=== PATIENT | female | born 1945 | race Caucasian/White ===

== ENCOUNTER → 2017-07-11 | Outpatient (CLI) | payer MEDICARE ==
[~2017-07-11] MED LIST: AMLO-110 PO; AMLO-543 PO; ASPI-1441 PO; AUG875 PO; CALC-685 PO; CARV12.578 PO; FLUT15.88; HCTZ25 PO; HYDR-4309 PO; IBU600 PO; IBUP-56 PO; LISI-353 PO; LOR5 PO; MULT-19 PO; MULTIVITAMIN; OMEG-84 PO; OMEP-137 PO; OMEP-218 PO; OMEP40CA79 PO; OXYB10TA16 PO; RAL60 PO; ROS10 PO; SILV20CR2 TP; TOLT4CAP13 PO; TUM500 PO; UBID50CA21 PO; VALA500T63 PO; ZINC50TA43 PO
--- NOTE | 2017-07-11 16:26 | RADIOLOGY IMAGING REPORT ---
FACILITY: [facility] PATIENT NAME: Jimena Silver : 1945 MR: [id number] V: [id number] EXAM DATE: ORDERING PHYSICIAN: ERICK RAGSDALE TECHNOLOGIST: [facility] Patient: Jimena Silver : 1945 Visit/Account:[id number] Date of Sevice: 07/11/2017 CAROTID HISTORY: History of surgery history of stenosis and dizziness COMPARISON: May 07, 2016 FINDINGS: Grayscale, duplex and color Doppler interrogation of the extracranial carotid and vertebral arteries was performed bilateral. On the right, peak systolic velocities within the common and internal carotid arteries are 80 and 112 cm/sec respectively. Small amount of plaque identified in the right internal carotid artery.. Ante grade flow within the common, internal and external carotid arteries as well as vertebral artery. ICA /CCA ratio 1.6. On the left, peak systolic velocities within the common and internal carotid arteries are 79 and 92 c m/sec respectively. There is a small hard plaque at the origin of the left internal carotid artery. Antegrade flow within the common, internal and external carotid arteries as well as vertebral artery . ICA/CCA ratio 1.4. IMPRESSION: Small amount of plaque in the internal carotid arteries bilaterally. No hemodynamically significant lesions identified by velocity criteria Velocity criteria are extrapolated from diameter data as defined by the Society of Radiologists in Ul trasound Consensus Conference Radiology 2003; 229;340-346 Report Dictated By: Michell Killian MD at 07/11/2017 4:15 PM Report E-Signed By: Michell Killian MD at 07/11/2017 4:21 PM WSN:[email or web address]
== END ==
LOC: US 01:27
PROVIDERS: ATTEND Surgery Vascular Surgery
DX: I65.23 Occlusion and stenosis of bilateral carotid arteries (principal)
CPT/HCPCS: 93880

== ENCOUNTER 2017-07-19 13:05 | Outpatient (RCR) | payer MEDICARE ==
[2017-05-26 13:45] LABS: PLATELET COUNT, AUTOMATED 247 K/uL (150-450)
--- NOTE | 2017-05-30 10:09 | RADIOLOGY IMAGING REPORT ---
FACILITY: [facility] - [place] PATIENT NAME: Jimena Silver : 1945 MR: [id number] V: [id number] EXAM DATE: ORDERING PHYSICIAN: DEVON RILEY TECHNOLOGIST: Location: [facility] Patient: Jimena Silver : 1945 Visit/Account:[id number] Date of Sevice: 05/26/2017 CHEST W CONTRAST History: Breast cancer, placement for therapy lazcano TECHNIQUE: Contiguous axial images were performed through the chest to the level of the adrenal gla nds following the administration of IV contrast. Coronal and sagittal reformatting was also perform ed. Dose Lowering Technique One of the following dose optimization techniques was utilized in the performance of this exam: Autom ated exposure control; adjustment of the mA and/or kV according to the patient's size; or use of an i terative reconstruction technique. Specific details can be referenced in the facility's radiology C T exam operational policy. Contrast: 75 mL Isovue-370 COMPARISON STUDIES: none. Lungs / Pleura: There is a 3 mm noncalcified pulmonary nodule inferolateral aspect the right lower lobe best seen on image 78 of series 3 small amount of linear stranding in the left lower lobe may re present scarring versus discoid atelectasis. Mediastinum/nodes: negative. Heart and vessels: There are moderate coronary artery vascular calcifications Musculoskeletal / Body wall: There are multiple nodules identified in the right lobe of the thyroid gland. In the left axilla there is a 4.3 x 2.5 x 2.4 cm hypoattenuating space-occupying process. This is i mmediately adjacent to a skin incision. The patient did have recent sentinel node removal. This cou ld be a postoperative finding. In the upper outer quadrant of the left breast there is a 4.9 x 5.2 x 4.1 cm irregular hypoattenuatin g space-occupying process.. The patient has also had a lumpectomy in the site recently and this coul d represent postoperative change.. There are mild spondylotic changes of the thoracic spine. Upper abdomen: In the medial segment left lobe of the liver there is a 5.1 cm cyst. There are carlos ral other smaller hypoattenuating lesions in the liver that are too small to characterize although ma y represent additional cysts.. There is a small hiatal hernia IMPRESSION: There are two hypoattenuating space-occupying processes seen in the left breast one the left axilla a nd one in the upper outer quadrant. These could represent postoperative changes from previous sentin el node dissection and lumpectomy although clinical follow-up needed Multiple nodules right lobe the thyroid gland for which formal thyroid ultrasound would be helpful 5.1 cm cyst left lobe the liver. Several other smaller hypoattenuating lesions in liver are too smal l to characterize although could represent additional cysts. If of concern ultrasound may be helpful Small hiatal hernia 3 mm noncalcified pulmonary nodule inferolateral aspect right lower lobe. For nodules less than 6 mm in a low risk patient (minimal or absent smoking history, no history of malignancy), no routine follo wup is recommended. In a high risk patient (smoking or malignancy history), optional 12 month followu p can be obtained. Moderate coronary artery vascular calcifications Report Dictated By: Michell Killian MD at 05/30/2017 9:50 AM Report E-Signed By: Michell Killian MD at 05/30/2017 10:03 AM WSN:[email or web address]
[~2017-07-19 13:05] MED LIST changes: +ALTEPLASE RECOMB 2 MG VIAL IVP PRN; +DEXTROSE 5%(*) 100 ML BAG 100 ML IVPB PRN; +HEPARIN FLSH (PORT) 500 UN/5ML IVP PRN; +IOPAMIDOL 76% 75 ML INFUS BTL 75 ML ONE; +LIDOCAINE/SOD BICARB 8.4% SYR ID PRN; +NS 0.9% 20 ML SDV 60 ML ONE; +NS(*) 0.9% 100 ML BAG 100 ML IVPB PRN; +NS(*) 0.9% 500 ML BAG 500 ML IV PRN; +WATER STERILE 10 ML VIAL IVP PRN
== END 2017-08-22 ==
LOC: RAON 13:05
PROVIDERS: ATTEND Radiology Radiation Oncology
DX: Z51.0 Encounter for antineoplastic radiation therapy (principal); C50.912 Malignant neoplasm of unspecified site of left female breast; Z17.0 Estrogen receptor positive status [ER+]; Z87.891 Personal history of nicotine dependence; R91.1 Solitary pulmonary nodule; E04.2 Nontoxic multinodular goiter; K76.89 Other specified diseases of liver
CPT/HCPCS: 36415; 71260; 77280; 77290; 77295; 77300; 77334; 77336; 77412; 85025; G0463; J7050; Q9967; 77417; 82040; 82247; 82310; 82374; 82435; 82565; 82947; 84075; 84132; 84155; 84295; 84450; 84460; 84520; 93880; 99202

== ENCOUNTER 2017-07-27 09:21 | Outpatient (RCR) | payer MEDICARE ==
[2017-05-23 12:38] VITALS: BP 160/78
--- NOTE | 2017-05-24 19:58 | CONSULTATION ---
EVENT DATE: May 23, 2017 CHIEF COMPLAINT/REASON FOR VISIT Mrs. Silver is a very pleasant 72-year-old female with early stage node negative ER/AK positive breast cancer, here for initial consult. Please see her oncology history below for more details. Mrs. Silver is recovering well from surgery. It was complicated by a small hematoma which required evacuation. She is recovering from this quite nicely fortunately. No other concerns lumps or bumps. Her sentinel lymph node was negative. She is here to discuss the role of radiation therapy as well as various adjuvant therapies. ONCOLOGIC HISTORY Jimena had a mammogram which revealed the concerning lesion in the left upper outer quadrant of the left breast. She then had lumpectomy with sentinel lymph node biopsy in April [address] Vaz. Fortunately the sentinel lymph node was negative. Review of the imaging shows that the lesion was a T1 with a maximum dimension of 8.8 mm. ER/AK positive. HER2/jordan normal. Low Ki- 67. Oncotype DX risk group pending. PAST MEDICAL HISTORY 1. Early stage node negative breast cancer, April 2017, treated with lumpectomy with plan for radiation therapy and hormone therapy. 2. Hyperlipidemia. 3. Hypertension. 4. Carotid artery stenosis, status post repair. 5. History of a lung nodule, benign, removed in 2002. 6. GERD. 7. History of overactive bladder. 8. Osteopenia. 9. Status post hysterectomy. 10. History of estrogen replacement therapy with Premarin for several years. SOCIAL HISTORY Patient has adult children as well as three grandkids. Forty pack-year history of smoking, quitting in 1998. Occasional alcohol use. FAMILY HISTORY Never had a history of breast cancer in the family. REVIEW OF SYSTEMS CONSTITUTIONAL: No fevers, chills, significant weight change. HEENT: No headache or vision changes. She does wear contacts. CARDIOVASCULAR: Does have a history of high blood pressure. No dyspnea on exertion or edema. RESPIRATORY: No shortness of breath, wheeze, cough. GASTROINTESTINAL: No nausea, vomiting, diarrhea or constipation. She does have GERD. GENITOURINARY: No dysuria or hematuria. ENDOCRINE: No heat or cold intolerance. PSYCHIATRIC: No anxiety or depression. SKIN: No concerning rashes or lesions. LYMPHATIC: No concerning lumps or bumps. BREASTS: No other concerning findings. The remainder of her 14-point review of systems is otherwise negative. PHYSICAL EXAMINATION VITAL SIGNS: Blood pressure 160/78, pulse 69, respiratory rate 16, temperature 96.9 Fahrenheit, oxygen saturation 96% on room air. Height 69 cm. Weight 94.6 kg. Pain 0/10, fatigue 0/10. GENERAL: In stable condition, resting comfortably in the chair. HEENT: Normocephalic, atraumatic. CARDIOVASCULAR: Deferred. RESPIRATORY: No respiratory distress. Lungs clear. EXTREMITIES: No clubbing, cyanosis or edema. Remainder of physical exam otherwise unremarkable. IMPRESSION AND PLAN Mrs. Silver is a pleasant 70-year-old female with the following: Early stage node-negative breast cancer. She has completed lumpectomy and I strongly recommend radiation therapy. I do not see a role for chemotherapy unless her Oncotype DX score is in the high range. There would be no role if it is in the low or intermediate range. I did recommend hormonal therapy and we discussed aromatase inhibitors in detail today. My nurse practitioner, Flor Peterson, met with her as well and discussed radiation therapy in detail as well. I answered all of her many questions. We will see her back at the conclusion of radiation therapy. Billing: New patient level 4. Total time 45 minutes, counseling 35. MTDD
--- NOTE | 2017-05-24 20:24 | CONSULTATION ---
EVENT DATE: May 24, 2017 PRIMARY SITE AND HISTOPATHOLOGY Invasive ductal carcinoma of the left breast, upper outer quadrant. Tumor size 1.5 x 1.8 x 1.9 cm. Margins negative. [place] lymph node negative. Tumor is ER receptor positive 94%, DC receptor positive 77%, HER2 1+. Status post lumpectomy and sentinel lymph node procedure on April 19, 2017. Stage T1c N0 MX. HISTORY This is a pleasant 72-year-old female who was referred to me by Dr. Vaz and Dr. Blackmon for radiation therapy recommendations relating to a recently diagnosed breast malignancy. The patient's primary physician is Dr. Lancaster. The patient came in for routine mammogram in March which was abnormal. She was advised to have an ultrasound study, which revealed a hypoechoic shadow 3 cm lateral to the nipple. Biopsy was recommended. The patient went on to needle localization biopsy on April 08, 2017, which was positive for well differentiated ductal carcinoma. She elected for breast conservation and underwent lumpectomy and axillary lymph node sampling procedure on April 19. Wide excision was performed revealing a grade 2 invasive ductal carcinoma. Margins are clear, but approximately 2 mm away from the inked surgical margin. [place] lymph node was negative. Receptor status is listed above. I reviewed the operative specimen x-ray with the patient today. Patient has had no postoperative complications. She saw Medical Oncology with Dr. Blackmon yesterday and she would be started on tamoxifen or an aromatase inhibitor after the radiotherapy program was completed. Patient denies any headaches or persistent bone pain. No family history of breast carcinoma. She was briefly on estrogens for a few years after GIA-BSO remotely. She states she could not feel the lesion when it was detected by the 3D tomosynthesis. PAST MEDICAL HISTORY 1. Carotid artery disease with previous plaque removal in [place] around 2011. 2. Patient also has a history of hypertension. PAST SURGICAL HISTORY 1. Right carotid endarterectomy. 2. Prior hysterectomy around 1986. 3. Prior surgical removal of a lung granuloma. 4. Remote history of benign breast biopsies in her 20s. SOCIAL HISTORY Patient is . She [place] from [place] Cancer [place]. Her is retired. 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 Two children, ages 38 and 43. FAMILY HISTORY Notable for great grandmother who had colon carcinoma. MEDICATIONS 1. Lisinopril/HCTZ 20/12.5 mg. 2. Baby aspirin 81 mg a day. 3. Zinc 58 mg a day. 4. Oxybutynin. 5. CoQ10. ALLERGIES ALENDRONATE (severe dental pain). REVIEW OF SYSTEMS A 14-point review of systems notable for skin dryness, occasional leg cramps, rare GERD. PHYSICAL EXAMINATION GENERAL: A pleasant 72-year-old female of medium build. VITAL SIGNS: BP at 156/76, pulse 66 and regular, O2 sat 95% on room air. Weight 208. LUNGS: Clear to auscultation bilaterally. No peripheral lymphadenopathy detected. BREASTS: Exam reveals medium-sized breasts. No palpable abnormalities on the right breast. The left breast reveals excellent cosmetic result from recent surgery. There is a well-healed curvilinear scar in the upper outer quadrant of the left breast and a secondary scar in the axilla which his healing nicely at this time. She did inform me that she had a small area of drainage at this site initially which Dr. Vaz repaired. A small area of induration is noted beneath a prior surgical scar remotely. No gross organomegaly. EXTREMITIES: Reveal no edema or cyanosis. NEUROLOGIC: Exam is intact. IMPRESSION This is a pleasant 72-year-old female with recently diagnosed moderately differentiated invasive ductal carcinoma of the left breast in the upper outer quadrant. Tumor has been appropriately removed and the sentinel lymph node is negative. Margins are satisfactory at this time for breast conservation therapy. I went through the details of the standard radiotherapy course as well as the clinical rationale for treatment. Patient will receive 60 Gy to the upper outer quadrant with standard fractionation. Patient will be treated with tangents which will be set up with CT planning later this week. Will also request a diagnostic CT scan at that time which will serve as our baseline study for future comparison. Laboratory studies are normal. Patient has seen Medical Oncology. She tentatively will start on tamoxifen and aromatase inhibitor after the radiation course is completed. Dr. Blackmon has also requested Oncotype DX according to the nurses today, which will be available in several weeks. All questions were answered to the patient's satisfaction and films reviewed carefully as well as the pathology report. Over a 90-minute consultation. Treatments will start in approximately seven days. Thank you for the referral and excellent notes which accompanied the patient for her visit today. PAUL
[~2017-07-27] VITALS: Ht 175.3 cm; Wt 95.4 kg
[~2017-07-27 09:21] MED LIST changes: -BARIUM SULFATE 176 GM BTL PO ONE; -BARIUM SULFATE 340 GM POWD ONE
[2017-07-27 09:32] VITALS: BP 187/87
--- NOTE | 2017-07-27 18:27 | ONCOLOGY FOLLOW UP NOTE ---
EVENT DATE: July 27, 2017 REASON FOR FOLLOWUP Stage I ER positive left breast cancer. INTERIM HISTORY Ms. Silver returns to clinic for a follow-up visit today. She is accompanied by her friend. Since her last visit here with Dr. Blackmon, she has completed adjuvant radiation therapy with Dr. Singletary. She reports that the radiation therapy went quite well, with fatigue and skin changes being her only real complaints. She feels that her fatigue is now better, and her skin has healed. She reports no new breast lumps or bumps, and no abnormalities under the arms. Her appetite is good, and her weight has been stable. She has been staying fairly active. She reports no abdominal symptoms or changes in bowel or bladder habits. REVIEW OF SYSTEMS Otherwise negative in all systems that were reviewed. ONCOLOGY HISTORY 1. ER positive stage I left breast cancer. a. Patient presents with mammogram revealing a concerning lesion in the upper outer quadrant of the left breast. b. Patient undergoes lumpectomy and sentinel lymph node biopsy in April 2017. c. Pathology: 8.8 mm ER/WA positive ductal carcinoma, HER2 negative, low Ki- 67. Oncotype DX score 16. [place] lymph node negative, margins negative. PAST MEDICAL HISTORY 1. Breast cancer, as above. 2. Hyperlipidemia. 3. Hypertension. 4. Carotid artery stenosis, status post repair. 5. History of lung nodule, benign, removed in 2002. 6. Gastroesophageal reflux disease. 7. History of hyperactive bladder. 8. Osteopenia. 9. Status post hysterectomy. 10. History of estrogen replacement therapy with Premarin for several years, remote. CURRENT MEDICATIONS 1. Multivitamin with iron daily. 2. Zinc. 3. Valtrex. 4. Fluticasone. 5. Omeprazole. 6. Lisinopril/hydrochlorothiazide. 7. Ibuprofen p.r.n. 8. Oxybutynin. 9. Co-enzyme Q10. 10. Aspirin 81 mg daily. ALLERGIES AMLODIPINE and adverse reaction including ALENDRONATE. SOCIAL HISTORY Patient has adult children as well as three grand kids. She has a 40 pack-year history of smoking, having quit in 1998. She drinks occasional alcohol. There is no history of illicit drug use. FAMILY HISTORY There is no reported history of breast cancer in the family. VITAL SIGNS Temperature is 97.4, blood pressure 187/87, heart rate is 59, respirations 16, oxygen saturation is 95% on room air. Weight is 95.4 kg. PHYSICAL EXAMINATION GENERAL: Patient is alert and oriented times three in no apparent distress sitting in the exam room chair. HEENT: Exam reveals anicteric sclerae. NEUROLOGIC: Exam is grossly nonfocal and her gait is normal. SKIN: Exam reveals no concerning rash or lesion. EXTREMITIES: Exam reveals no edema, clubbing or cyanosis. There is no erythema or tenderness to palpation. LABORATORY STUDIES AND IMAGING Reviewed per the [facility] record. ASSESSMENT AND PLAN Early state ER positive left breast cancer. I had a good visit with Ms. Silver and her friend today. We spent time reviewing her oncology history, as is noted below. She has completed surgical resection as well as adjuvant radiation therapy, which she tolerated quite well. We spent the vast majority of our time today discussing plans for adjuvant endocrine therapy. We reviewed her Oncotype DX score of 16, which does land in the low risk category. Adjuvant chemotherapy will therefore not be considered. I have recommended that she consider adjuvant endocrine therapy with an aromatase inhibitor. We discussed Anastrozole in detail. We discussed common toxicities to include hot flashes, GI upset, arthralgias, changes in her cholesterol profile, and importantly, a lessening of her bone mineral density. I do note her history of osteopenia, and we will likely move forward with a bone scan for a new baseline study in the next several months. The patient does seem open minded to the use of aromatase inhibitor therapy. We also discussed Tamoxifen as an alternative, or another aromatase inhibitor if she has trouble with the Anastrozole. I have recommended that she have a treatment education, hopefully today, with the PharmD. I will plan to see her back in the clinic for followup in four to six weeks to assess for side effects. We discussed the importance of regular physical activity, good nutrition, as well as vitamin D and calcium supplementation today as well. PAUL
--- NOTE | 2017-07-29 11:09 | Pharmacy Note ---
Pharmacy Note Note: Chemotherapy Education New medication: Anastrozole 1mg po daily x 10 years Discussed the addition of anastrozole with the patient and her friend. Purpose of the medication was discussed, mechanism of the medication, dosing and duration of therapy. Patient expressed understanding of these general points. Medication toxicities and what to expect: Multiple toxicities reviewed with the patient and her friend including the following: -decrease in bone mineral density, which the patient reports being osteopenic. Recommended supplementing calcium and vitamin d while receiving anastrozole. -hyperlipidemia, ischemic heart disease- regular monitoring of lipids with Dr. Tracy -caution handling the medication for anyone of childbearing age and keeping out of the reach of children Adverse events: - vasomotor symptoms, arthralgias, vasodilation, angina, edema, fatigue, mood changes, blood clots, changes in bowel habits, UTIs Patient was given an education handout from [employer] regarding all of the above issues discussed. Answered all of the patient's questions. Patient will call us with any questions Savannah Mishra, PharmD, [facility] SAVANNAH MISHRA Jul 29, 2017 11:09
== END 2017-08-18 ==
LOC: ONC 09:21
PROVIDERS: ATTEND Internal Medicine
DX: C50.412 Malignant neoplasm of upper-outer quadrant of left female breast (principal); Z17.0 Estrogen receptor positive status [ER+]; Z87.891 Personal history of nicotine dependence; Z92.3 Personal history of irradiation
CPT/HCPCS: 99202; 99212

== ENCOUNTER → 2017-07-27 | Outpatient (CLI) | payer MEDICARE ==
[~2017-07-27] MED LIST changes: -ALTEPLASE RECOMB 2 MG VIAL IVP PRN; +BARIUM SULFATE 176 GM BTL PO ONE; +BARIUM SULFATE 340 GM POWD ONE; -DEXTROSE 5%(*) 100 ML BAG 100 ML IVPB PRN; -HEPARIN FLSH (PORT) 500 UN/5ML IVP PRN; -IOPAMIDOL 76% 75 ML INFUS BTL 75 ML ONE; -LIDOCAINE/SOD BICARB 8.4% SYR ID PRN; -NS 0.9% 20 ML SDV 60 ML ONE; -NS(*) 0.9% 100 ML BAG 100 ML IVPB PRN; -NS(*) 0.9% 500 ML BAG 500 ML IV PRN; -WATER STERILE 10 ML VIAL IVP PRN
--- NOTE | 2017-07-27 09:53 | RADIOLOGY IMAGING REPORT ---
FACILITY: [facility] - [place] PATIENT NAME: Jimena Silver : 1945 MR: [id number] V: [id number] EXAM DATE: ORDERING PHYSICIAN: GIOVANNA JACOBS TECHNOLOGIST: Location: [facility] [place] Patient: Jimena Silver : 1945 Visit/Account:[id number] Date of Sevice: 07/27/2017 THYROID HISTORY: Multiple thyroid nodules, dysphasia COMPARISON: None. FINDINGS: SIZE: Normal. Right lobe: 6.2 x 2.1 x 2 cm Left lobe: 4.4 x 1.5 x 1.3 cm Isthmus: 2 mm PARENCHYMA: Heterogeneous NODULES: Right lobe: * Multiple solid nodules in the right lobe of the thyroid gland. The largest is in the lateral aspe ct of the mid right lobe measuring 1.4 cm in diameter and appears isoechoic. * In the inferior right lobe there is a hypoechoic nodule containing a coarse calcification measur ing approximately 1.2 cm in diameter. * In the medial right lobe there is additional spongiform nodule measuring 1.2 cm in diameter * In the superior medial right lobe there is a 1.3 cm nodule that appears well-circumscribed and sp ongiform.. Left lobe: * There are multiple solid nodules in the left lobe. The largest is a hypoechoic hypervascular nodu le in the inferior left lobe measuring 1.3 cm in diameter Isthmus: * Along the right lateral aspect of the isthmus is a hypoechoic nodule measuring 1.9 cm in diameter VASCULARITY: Within normal limits. ADDITIONAL FINDINGS: None. IMPRESSION: There are multiple solid thyroid nodules as described above. In the inferior right lobe there is a h ypoechoic nodule containing a coarse calcination measuring approximate 1.2 cm in diameter for which f ine-needle aspiration is recommended. In the inferior left lobe there is a 1.3 cm hypoechoic slightly hypervascular nodule for which fine-n eedle aspiration is recommended Along the right lateral aspect of the isthmus is a hypoechoic nodule measuring 1.9 cm in diameter for which fine-needle aspiration is recommended REFERENCE: 2015 [place] [employer] Management Guidelines for Adult Patients with Thyroid Nodules and D ifferentiated Thyroid Cancer: The [place] [employer] Guidelines Task Force on Thyroid Nodul es and Differentiated Thyroid Cancer. SONOGRAPHIC PATTERNS: * Benign: Purely cystic nodules (no solid component); estimated risk of malignancy <1 percent; no bi opsy recommended. * Very Low Suspicion: Spongiform or partially cystic nodules without any of the sonographic features described in low, intermediate, or high suspicion patterns; estimated risk of malignancy <3 percent; consider FNA at > 2 cm (Observation without FNA is also a reasonable option). * Low Suspicion: Isoechoic or hyperechoic solid nodule, or partially cystic nodule with eccentric so lid areas, without microcalcification, irregular margin or ETE (extra-thyroidal extension), or taller than wide shape; estimated risk of malignancy 5-10 percent; recommend FNA at >1.5 cm. * Intermediate Suspicion: Hypoechoic solid nodule with smooth margins without microcalcifications, E TE (extra-thyroidal extension), or taller than wide shape; estimated risk of malignancy 10-20 percent ; recommend FNA at > 1 cm. * High Suspicion: Solid hypoechoic nodule or solid hypoechoic component of a partially cystic nodule with one or more of the following features: irregular margins (infiltrative, microlobulated), microc alcifications, taller than wide shape, rim calcifications with small extrusive soft tissue component, evidence of ETE (extra-thyroidal extension); estimated risk of malignancy >70-90 percent; recommend FNA at > 1 cm. NOTES: * Although a sonographically suspicious subcentimeter thyroid nodule without evidence of extrathyroi hiral extension or sonographically suspicious lymph nodes may be observed with close sonographic follow -up rather than pursuing immediate FNA, patient age and preference may modify decision-making. A > 50% interval increase in nodule volume and/or development of new suspicious sonographic features are felt to be a v lid reasons for potential re-aspiration of a nodule previously shown to have benig n FNA cytology. Report Dictated By: Michell Killian MD at 07/27/2017 9:10 AM Report E-Signed By: Michell Killian MD at 07/27/2017 9:48 AMWSN:[email or web address]
--- NOTE | 2017-07-27 17:50 | RADIOLOGY IMAGING REPORT ---
FACILITY: [facility] - [place] PATIENT NAME: Jimena Silver : 1945 MR: [id number] V: [id number] EXAM DATE: ORDERING PHYSICIAN: GIOVANNA JACOBS TECHNOLOGIST: Location[place] [facility] [place] Patient: Jimena Silver : 1945 Visit/Account:[id number] Date of Sevice: 07/27/2017 Exam type: ESOPHAGRAM History: Flex, dysphasia with me, history of paralyzed vocal cords Comparison: None. Findings: Double contrast esophagram was performed with thick and thin barium. There is very mild narrowing al anna the anterior wall of the upper cervical esophagus. There is moderate narrowing in the lower esop hagus and a small hiatal hernia. A moderate amount of gastroesophageal reflux was observed. A 12 mm barium tablet did pass through the lower esophageal sphincter into the stomach however. The fluoroscopy dose area product was 408.49 micro-Wilkes per meter squared IMPRESSION: 1. Mild narrowing along the anterior border of the upper cervical esophagus and a moderate narrowing of the lower esophageal sphincter although a 12 mm barium tablet did pass into the stomach. Given t hese findings endoscopy may be helpful. Small hiatal hernia and a moderate amount of gastroesophageal reflux Report Dictated By: Michell Killian MD at 07/27/2017 5:42 PM Report E-Signed By: Michell Killian MD at 07/27/2017 5:46 PM WSN:[email or web address]
== END ==
LOC: US 02:46
PROVIDERS: ATTEND Surgery
DX: K21.9 Gastro-esophageal reflux disease without esophagitis (principal); K44.9 Diaphragmatic hernia without obstruction or gangrene; K22.2 Esophageal obstruction
CPT/HCPCS: 74220; 76536

== ENCOUNTER → 2017-08-29 | Outpatient (CLI) | payer MEDICARE ==
[2017-08-29 08:44] LABS: INR 0.96
== END ==
LOC: LAB 08:01
PROVIDERS: ATTEND Surgery
DX: Z01.812 Encounter for preprocedural laboratory examination (principal); E04.2 Nontoxic multinodular goiter
CPT/HCPCS: 36415; 84443; 85610

== ENCOUNTER → 2017-08-30 | Outpatient (CLI) | payer MEDICARE ==
[~2017-08-30] MED LIST changes: +ANAS1TAB34 PO; +CALC500T6 PO; +CHOL200074 PO
--- NOTE | 2017-08-30 16:46 | RADIOLOGY IMAGING REPORT ---
FACILITY: [facility] - [place] PATIENT NAME: Jimena Silver : 1945 MR: [id number] V: [id number] EXAM DATE: ORDERING PHYSICIAN: GIOVANNA JACOBS TECHNOLOGIST: Location: [facility] [place] Patient: Jimena Silver : 1945 Visit/Account:[id number] Date of Sevice: 08/30/2017 Exam type: THYROID BIOPSY FINE NEEDLE ASP History: Multiple thyroid nodules Comparison: July 27, 2017. Findings: Informed consent was obtained. The patient's neck was prepped and draped in usual sterile fashion. The patient had three thyroid nodules requiring biopsy. One was in the inferior right lobe, one righ t-sided isthmus and one was in the left lobe. Local anesthesia was accomplished 1% lidocaine. Four 25-gauge biopsies were obtained through the right isthmus nodule and submitted to the pathology techn ologist for processing. Three 25-gauge biopsies were obtained through the inferior right lobe nodule and submitted to the geospatial information technologist for processing. Four 25-gauge biopsies were obtained th rough the left-sided nodule submitted to the geospatial information technologist for processing. The procedure wa s accomplished without apparent complication. IMPRESSION: 1. Successful sonographically guided biopsy of three thyroid nodules, one in the right side isthmus, one in the inferior pole the right lobe and one in the left lobe. Report Dictated By: Michell Killian MD at 08/30/2017 4:40 PM Report E-Signed By: Michell Killian MD at 08/30/2017 4:43 PM WSN:[email or web address]
== END ==
LOC: US 00:42
PROVIDERS: ATTEND Surgery
DX: E04.2 Nontoxic multinodular goiter (principal)
CPT/HCPCS: 10022; 76942; 88104; 88172

== ENCOUNTER 2017-09-07 01:06 | Day surgery (SDC) | payer MEDICARE ==
[~2017-09-07] VITALS: Ht 177.8 cm; Wt 93.0 kg
[2017-09-07] MEDS ORDERED: PROPOFOL EMUL(*) 10MG/ML 20 ML 40 ML ONE (06:53)
[2017-09-07] MEDS: NORMOSOL R SOLN(*) 1000 ML BAG 1,000 ML IV PRN ×2 (08:20→10:35)
[2017-09-07 08:34] VITALS: BP 150/78
[2017-09-07] MEDS ORDERED: LIDOCAINE/SOD BICARB 8.4% SYR ID ONE (09:00)
[2017-09-07 11:12] VITALS: BP 149/71
--- NOTE | 2017-09-07 11:19 | Short(Outpt) Discharge Summary ---
Discharge Summary Reason for Hosp/Final Diag: (1) Dysphagia Status: Chronic Hospital Course & Plan: EGD with biopsy and esophageal dilation completed without problems. Departure Discharge to: Home, Self Care Discharge Instructions Home Meds Active Scripts Oxybutynin Chloride (OXYBUTYNIN CHLORIDE ER) 10 Mg Tab.er.24, 1 TAB PO QDAY, # 90 TAB.SR 1 Refill Prov:RODRÍGUEZ BURROWS MD 08/29/17 Valacyclovir Hcl (VALACYCLOVIR) 500 Mg Tablet, 500 MG PO BID for 3 Days, #6 TAB 4 Refills Prov:RODRÍGUEZ BURROWS MD 06/29/17 Fluticasone Propionate (Fluticasone Propionate) 50 Mcg/Actuation [place].susp, 2 SPRAY NA DAILY for 30 Days, #1 BOTTLE 4 Refills Prov:RODRÍGUEZ BURROWS MD 06/29/17 Omeprazole (OMEPRAZOLE) 20 Mg Tablet.dr, 1 TAB PO DAILY, #90 TAB 3 Refills Prov:RODRÍGUEZ BURROWS MD 06/21/17 Lisinopril/Hydrochlorothiazide (LISINOPRIL-HCTZ 20-12.5 MG TAB) 1 Each Tablet, 1 EACH PO DAILY for 90 Days, #90 TAB 4 Refills Prov:RODRÍGUEZ BURROWS MD 04/20/17 Reported Medications Anastrozole (ANASTROZOLE) 1 Mg Tablet, 1 MG PO DAILY 08/31/17 Cholecalciferol (Vitamin D3) (VITAMIN D-3) 2,000 Unit Capsule, 2000 UNIT PO, CAPSULE 08/31/17 Calcium Carbonate (CALCIUM) 500 Mg Tablet, 1000 MG PO DAILY 08/31/17 Multivits-Min/Iron/FA/Lutein (Centrum Silver Women Tablet) 1 Each Tablet, 1 TAB PO DAILY 06/29/17 Ibuprofen (IBUPROFEN) 200 Mg Tablet, 2 TAB PO PRN, TAB 04/20/17 Ubidecarenone (Co Enzyme Q10) 50 Mg Capsule, 200 MG PO DAILY, 0 Refills 05/13/10 Aspirin (Aspirin Ec) 81 Mg Tablet.dr, 81 MG PO DAILY 05/13/10 Discontinued Reported Medications Silver Sulfadiazine (SILVADENE) 20 Gm Cream..g., 20 GM TP BID for 10 Days 07/05/17 Zinc Gluconate (ZINC) 50 Mg Tablet, 1 TAB PO DAILY 06/29/17 [Multivitamin] No Conflict Check, DAILY 05/13/10 Diet: Regular Activity: As Tolerated Special Instructions: Your upper endoscopy was completed without problems. I dilated your esophagus and biopied where your esophagus empties into your stomach to look for Tom's esophagus which is a potentially precancerous condition due to chronic reflux. I didn't find anything particularly concerning during this test. Qiana, my office nurse, will call you in the next couple of days to schedule a follow up appointment to see me back to discuss all results with you. Problem Qualifiers (1) Dysphagia: Dysphagia type: esophageal phase Qualified Codes: R13.10 - Dysphagia, unspecified GIOVANNA JACOBS MD September 07, 2017 11:19
[2017-09-07 11:39] VITALS: BP 143/76
[2017-09-07 11:56] VITALS: BP 163/88
[2017-09-07 11:57] VITALS: BP 167/89
== END 2017-09-07 12:19 | disposition home or self-care (01) ==
LOC: OR 01:06
PROVIDERS: ATTEND Surgery
DX: K22.2 Esophageal obstruction (principal); K44.9 Diaphragmatic hernia without obstruction or gangrene
CPT/HCPCS: 43239; 43248; 88305; C1769; J2704

== ENCOUNTER 2017-09-28 08:28 | Outpatient (RCR) | payer MEDICARE ==
[~2017-09-28 08:28] MED LIST changes: +OMEP40CA48 PO
[2017-09-28 09:00] VITALS: BP 146/77
--- NOTE | 2017-09-28 11:12 | RADIOLOGY IMAGING REPORT ---
FACILITY: [facility] PATIENT NAME: Jimena Silver : 1945 MR: [id number] V: [id number] EXAM DATE: ORDERING PHYSICIAN: RODRÍGUEZ BURROWS TECHNOLOGIST: Location: [facility] - [place] Patient: Jimena Silver : 1945 Visit/Account:[id number] Date of Sevice: 09/28/2017 DEXA Scan Clinical history: Breast cancer, postmenopausal screening. Comparison: DEXA scan from to 12:15. LUMBAR SPINE: The bone mineral density (BMD) measured from L1-L4 correlates with a Z-score of -1.1 and a T-score of -1.7 which is osteopenia as defined by the World Health Organization. The corresponding risk of fra cture in the lumbar spine is 3-4 times increased compared with a young adult reference population. T his value has decrease by 5.4 % since the prior study. More than 5% change is considered significant . HIP: Bone mineral density (BMD) measured in the LEFT total hip region correlates with a Z-score by 0.8 and a T-score of is 1.5 which is osteopenia as defined by the World Health Organization. The correspond ing risk of fracture in the hip is 3-4 times increased compared to a young adult reference population . This value has decrease by 1.1 % since the prior study. More than 5% change is considered signific ant. T score left femoral neck -2.5 Bone mineral density (BMD) measured in the Femoral Neck region measures 0.693 g/cm?. IMPRESSION: 1. Lumbar spine: Osteopenia. There has been 5.4% decrease in the bone mineral density since the pre vious exam. 2. Left Total Hip: Osteopenia. There has been 1.1% decrease in the bone mineral density since the p revious exam. 3. Femoral Neck: Bone Mineral Density is 0.693 g/cm? The next DEXA scan of this patient should include the following sites: L1-L4 and the left hip. FRAX? WHO Fracture Risk Assessment Tool link: <http://www.shef.ac.uk/FRAX/tool.jsp?locationValue=9> PLEASE NOTE: 1) The World Health Organization defines low BMD as follows: T-score Normal > -1 Osteopenia < -1 and > -2.5 Osteoporosis < -2.5 without fractures Established osteoporosis < -2.5 with fractures 2) In general, you may wish to consider: Diagnosis Treatment Follow-up DEXA Normal BMD Prevention 2-3 years Osteopenia Prevention/therapy 1-2 years Osteoporosis Therapy Yearly 3) Fracture risk estimated from the T-score is more accurate for vertebral fractures (often spontane ous) than for hip fractures. Report Dictated By: Michell Killian MD at 09/28/2017 11:06 AM Report E-Signed By: Michell Killian MD at 09/28/2017 11:08 AM ELENN:SABI
--- NOTE | 2017-09-28 17:54 | ONCOLOGY FOLLOW UP NOTE ---
EVENT DATE: September 18, 2017 REASON FOR FOLLOWUP Stage I ER positive left breast cancer. INTERIM HISTORY Ms. Silver returns to clinic for a follow-up visit today. She reports that things are going pretty well in general. She has undergone a thyroid biopsy, which revealed evidence of goiter. She reports that this will be monitored. She has also undergone esophageal dilation and biopsy which has revealed benign findings. She has had some ongoing problems with swallowing, with most of the symptoms being more in the back of the throat, as opposed to the chest. She does have some ongoing fatigue, but this has been manageable. She has had no nausea. Hot flashes are not a problem. Her appetite is good, and her weight has been stable. She has had no new bowel symptoms. She denies new urinary symptoms. In general, she thinks things are going pretty well on the anastrazole, and she plans to continue taking it. She has not yet had a DEXA scan performed. REVIEW OF SYSTEMS Otherwise negative, and all systems were reviewed. ONCOLOGY HISTORY 1. ER positive stage I left breast cancer. a. Patient presents with mammogram revealing a concerning lesion in the upper outer quadrant of the left breast. b. Patient undergoes lumpectomy and sentinel lymph node biopsy in April 2017. c. Pathology: 8.8 mm ER/MS positive ductal carcinoma, HER2 negative, low Ki- 67. Oncotype DX score 16. [place] lymph node negative, margins negative. d. Initiation of adjuvant anastrazole in mid July,. PAST MEDICAL HISTORY 1. Breast cancer, as above. 2. Hyperlipidemia. 3. Hypertension. 4. Carotid artery stenosis, status post repair. 5. History of lung nodule, benign, removed in 2002. 6. Gastroesophageal reflux disease. 7. History of hyperactive bladder. 8. Osteopenia. 9. Status post hysterectomy. 10. History of estrogen replacement therapy with Premarin for several years, remote. CURRENT MEDICATIONS 1. Multivitamin with iron daily. 2. Zinc. 3. Valtrex. 4. Fluticasone. 5. Omeprazole. 6. Lisinopril/hydrochlorothiazide. 7. Ibuprofen p.r.n. 8. Oxybutynin. 9. Co-enzyme Q10. 10. Aspirin 81 mg daily. 11. Anastrazole 1 mg p.o. daily. ALLERGIES AMLODIPINE and adverse reaction including ALENDRONATE. SOCIAL HISTORY Patient has adult children as well as three grand kids. She has a 40 pack-year history of smoking, having quit in 1998. She drinks occasional alcohol. There is no history of illicit drug use. FAMILY HISTORY There is no reported history of breast cancer in the family. VITAL SIGNS Temperature is 97.4, blood pressure 146/77, heart rate is 74, respirations 17, oxygen saturation is 94% on room air. Weight is 94.4 kg. PHYSICAL EXAMINATION GENERAL: Patient is alert and oriented times three in no apparent distress sitting in the exam room chair. She appears healthy. She is interactive and pleasant. HEENT: Exam reveals anicteric sclerae. She does have a slight elevation and erythema of the gumline on the lower left, as well as some fullness in the cheek on the left. There is no significant tenderness. NEUROLOGIC: Exam is grossly nonfocal and her gait is normal. SKIN: Exam reveals no concerning rash or lesion. EXTREMITIES: Exam reveals no edema, clubbing or cyanosis. LABORATORY STUDIES AND IMAGING Reviewed per the [facility] record. IMAGING None today. ASSESSMENT AND PLAN Stage I ER positive left breast cancer. Ms. Silver seems to be doing well with adjuvant anastrazole. She is having some expected fatigue, but no new arthralgias, no hot flashes. She has had no GI upset that she can attribute to the medication itself. She has undergone esophageal dilation and thyroid biopsy recently. She is planning on having additional swallow evaluation, as symptoms persist. We discussed the plan moving forward, as she is tolerating the anastrozole without significant difficulty. I do think she needs to go for a DEXA scan, and this will be ordered today. We will be back in touch with her with the results. She needs to continue with calcium and vitamin D supplementation. We also spent time today discussing the importance of regular physical activity, and a healthful diet. She has been walking her dog more now that the weather is better. Patient had several additional questions for me today, and I believe I answered all of her questions to her satisfaction. Of note, she may have a slight brewing infection at the gumline in her mouth, and I have asked her to contact her dentist as soon as possible. She agrees to do so. PAUL
[2017-10-18] MEDS ORDERED: RANI150C17 PO (09:27)
[2017-10-19] MEDS ORDERED: [UNRECOGNIZED DRUG - CODE] PO (13:12)
[2017-10-19] MEDS ORDERED: MIDAZOLAM 2 MG/2 ML VIAL ONE (14:03)
[2017-10-19] MEDS ORDERED: KETAMINE HCL 500 MG/10 ML VIAL ONE (14:26)
== END 2017-10-19 11:09 | disposition home or self-care (01) ==
LOC: ONC 08:28
PROVIDERS: ATTEND Internal Medicine Medical Oncology
DX: C50.912 Malignant neoplasm of unspecified site of left female breast (principal); Z17.0 Estrogen receptor positive status [ER+]; Z87.891 Personal history of nicotine dependence; Z92.3 Personal history of irradiation; Z79.811 Long term (current) use of aromatase inhibitors; R53.83 Other fatigue; M85.89 Other specified disorders of bone density and structure, multiple sites; Z78.0 Asymptomatic menopausal state
CPT/HCPCS: 77080; G0463; J2250; J3490; 99212

== ENCOUNTER 2017-10-18 10:03 | Outpatient (RCR) | payer MEDICARE ==
[~2017-10-18 10:03] MED LIST changes: -[UNRECOGNIZED DRUG - CODE] PO
[2017-10-19] MEDS ORDERED: [UNRECOGNIZED DRUG - CODE] PO (13:12)
== END 2017-10-19 11:09 | disposition home or self-care (01) ==
LOC: RAON 10:03
PROVIDERS: ATTEND Radiology Radiation Oncology
DX: C50.912 Malignant neoplasm of unspecified site of left female breast (principal); Z17.0 Estrogen receptor positive status [ER+]; Z79.811 Long term (current) use of aromatase inhibitors; I10 Essential (primary) hypertension; K21.9 Gastro-esophageal reflux disease without esophagitis; Z92.3 Personal history of irradiation
CPT/HCPCS: 99212

== ENCOUNTER 2017-10-18 13:32 | Inpatient (IN) | payer MEDICARE ==
[~2017-10-18] VITALS: Ht 175.3 cm; Wt 94.8 kg
[~2017-10-18 13:32] MED LIST changes: +ceFAZolin(*) 1 GM VIAL 1 GM in NS(*) 0.9% 100 ML ADDVANT BAG 100 ML IV ONE
--- NOTE | 2017-10-18 13:38 | ER Report ---
History and Physical Time Seen By MD: 13:38 HPI/ROS CHIEF COMPLAINT: Fall with left hip pain HISTORY OF PRESENT ILLNESS: 72-year-old female patient presents to emergency room with complaint of a fall landing on the left hip. The patient states she was in the driveway, she tripped on the logical cord to the shop vac. She states that she fell and landed on the left hip. Patient states she had significant amounts of pain to the left hip. She states she is unable to straighten her leg out until she was placed on the gurney for the ambulance. Patient denies any numbness or tingling to the foot, she states that she does have pain to the left hip which she rates a 7 out of 10. She denies having any chest pain, neck pain, headache. She states she is not taking any medication for this. She states she is not given any pain medication in route to the emergency room. REVIEW OF SYSTEMS: Respiratory: No cough, no dyspnea. Cardiovascular: No chest pain, no palpitations. Gastrointestinal: No vomiting, no abdominal pain. Musculoskeletal: As noted above Allergies: Coded Allergies: amlodipine (Verified Allergy, Unknown, 02/27/17) EHR CONVERSION alendronate sodium (Unverified Adverse Reaction, Intermediate, 11/09/14) DENTAL PAIN Home Meds Active Scripts Ranitidine Hcl (RANITIDINE HCL) 150 Mg Capsule, 1 CAP PO QHS, #60 CAPSULE Prov:GIOVANNA JACOBS MD 10/18/17 Oxybutynin Chloride (OXYBUTYNIN CHLORIDE ER) 10 Mg Tab.er.24, 1 TAB PO QDAY, # 90 TAB.SR 1 Refill Prov:RODRÍGUEZ BURROWS MD 08/29/17 Valacyclovir Hcl (VALACYCLOVIR) 500 Mg Tablet, 500 MG PO BID for 3 Days, #6 TAB 4 Refills Prov:RODRÍGUEZ BURROWS MD 06/29/17 Fluticasone Propionate (Fluticasone Propionate) 50 Mcg/Actuation [place].susp, 2 SPRAY NA DAILY for 30 Days, #1 BOTTLE 4 Refills Prov:RODRÍGUEZ BURROWS MD 06/29/17 Lisinopril/Hydrochlorothiazide (LISINOPRIL-HCTZ 20-12.5 MG TAB) 1 Each Tablet, 1 EACH PO DAILY for 90 Days, #90 TAB 4 Refills Prov:RODRÍGUEZ BURROWS MD 04/20/17 Reported Medications Anastrozole (ANASTROZOLE) 1 Mg Tablet, 1 MG PO DAILY 08/31/17 Cholecalciferol (Vitamin D3) (VITAMIN D-3) 2,000 Unit Capsule, 2000 UNIT PO, CAPSULE 08/31/17 Calcium Carbonate (CALCIUM) 500 Mg Tablet, 1000 MG PO DAILY 08/31/17 Multivits-Min/Iron/FA/Lutein (Centrum Silver Women Tablet) 1 Each Tablet, 1 TAB PO DAILY 06/29/17 Ibuprofen (IBUPROFEN) 200 Mg Tablet, 2 TAB PO PRN, TAB 04/20/17 Ubidecarenone (Co Enzyme Q10) 50 Mg Capsule, 200 MG PO DAILY, 0 Refills 05/13/10 Aspirin (Aspirin Ec) 81 Mg Tablet., 81 MG PO DAILY 05/13/10 Discontinued Reported Medications Omeprazole (OMEPRAZOLE) 40 Mg Capsule.dr, 1 CAP PO QDAY, CAP 09/27/17 Past Medical/Surgical History Patient has a past medical history of hypertension, reflux, frequent UTI, knee pain, arthritis, fractures, back pain, alcohol use, ductal cancer of the left breast. Patient has surgical history of benign lesions removed from her skin, tonsillectomy, carotid surgery, hysterectomy. Patient has a family medical history of cancer, CAD, diabetes. Reviewed Nurses Notes: Yes Hx Smoking: Yes (QUIT 1998) Smoking Status: Former Smoker Hx Alcohol Use: Yes Constitutional Vital Sign - Last 24 Hours 10/18/17 10/18/17 10/18/17 10/18/17 13:32 13:34 13:35 13:47 Temp 97.6 Pulse ??? 66 61 Resp 16 B/P (MAP) 194/96 (128) 194/96 Pulse Ox 94 92 O2 Delivery Room Air 10/18/17 10/18/17 10/18/17 10/18/17 14:00 14:02 14:20 14:32 Pulse 62 65 B/P (MAP) 178/83 (114) ???/??? (5795) Pulse Ox 92 94 10/18/17 10/18/17 10/18/17 10/18/17 14:40 14:47 14:50 15:00 Pulse 62 B/P (MAP) ???/??? (6154) 183/84 (117) 194/86 (122) Pulse Ox 90 10/18/17 10/18/17 10/18/17 10/18/17 15:02 15:17 15:20 15:25 Pulse 57 55 57 B/P (MAP) 177/85 (115) Pulse Ox 90 93 93 10/18/17 10/18/17 10/18/17 10/18/17 15:30 15:35 15:40 15:45 Pulse 59 55 57 51 B/P (MAP) 187/87 (120) Pulse Ox 94 93 93 90 10/18/17 10/18/17 10/18/17 10/18/17 15:50 15:55 16:00 16:05 Pulse 58 68 58 Resp 14 21 B/P (MAP) 173/80 (111) Pulse Ox 92 90 92 Physical Exam General Appearance: The patient is alert, has no immediate need for airway protection and no current signs of toxicity Respiratory: Chest is non tender, lungs are clear to auscultation. Cardiac: regular rate and rhythm Gastrointestinal: Abdomen is soft and non tender, no masses, bowel sounds normal. Musculoskeletal: Neck: Neck is supple and non tender. Extremities have full range of motion and are non tender. Patient has tenderness to the left hip, she no tenderness to the pelvis. Foot appears to be slightly internally rotated. Skin: No rashes or lesions. DIFFERENTIAL DIAGNOSIS: After history and physical exam differential diagnosis was considered for hip fracture, hip contusion, sprain. Medical Decision Making Data Points Result Diagram: 10/18/17 1449 10/18/17 1449 Laboratory Hematology Test 10/18/17 14:49 Red Blood Count 5.40 M/uL (4.17-5.56) Mean Corpuscular Volume 86.2 fL (80.0-96.0) Mean Corpuscular Hemoglobin 29.9 pg (26.0-33.0) Mean Corpuscular Hemoglobin Concent 34.7 g/dL (32.0-36.0) Red Cell Distribution Width 12.7 % (11.5-14.5) Mean Platelet Volume 9.5 fL (7.2-11.1) Neutrophils (%) (Auto) 77.5 % (39.4-72.5) Lymphocytes (%) (Auto) 15.7 % (17.6-49.6) Monocytes (%) (Auto) 4.8 % (4.1-12.4) Eosinophils (%) (Auto) 1.4 % (0.4-6.7) Basophils (%) (Auto) 0.6 % (0.3-1.4) Nucleated RBC Relative Count (auto) 0.0 /100WBC Neutrophils # (Auto) 6.0 K/uL (2.0-7.4) Lymphocytes # (Auto) 1.2 K/uL (1.3-3.6) Monocytes # (Auto) 0.4 K/uL (0.3-1.0) Eosinophils # (Auto) 0.1 K/uL (0.0-0.5) Basophils # (Auto) 0.0 K/uL (0.0-0.1) Nucleated RBC Absolute Count (auto) 0.00 K/uL Peripheral Blood Smear No Y/N Sodium Level 139 mmol/L (137-145) Potassium Level 3.8 mmol/L (3.5-5.0) Chloride Level 103 mmol/L (98-107) Carbon Dioxide Level 24 mmol/L (22-31) Blood Urea Nitrogen 14 mg/dl (7-18) Creatinine 0.70 mg/dl (0.52-1.04) Glomerular Filtration Rate Calc > 60.0 Random Glucose 199 mg/dl (75-110) Calcium Level 9.3 mg/dl (8.4-10.2) Total Bilirubin 0.6 mg/dl (0.2-1.3) Aspartate Amino Transf (AST/SGOT) 25 U/L (0-35) Alanine Aminotransferase (ALT/SGPT) 41 U/L (0-56) Alkaline Phosphatase 83 U/L (0-126) Total Protein 6.5 g/dl (6.3-8.2) Albumin 3.9 g/dl (3.5-5.0) Chemistry Test 10/18/17 14:49 White Blood Count 7.7 k/uL (4.5-11.0) Red Blood Count 5.40 M/uL (4.17-5.56) Hemoglobin 16.1 g/dL (12.0-16.0) Hematocrit 46.5 % (34.0-47.0) Mean Corpuscular Volume 86.2 fL (80.0-96.0) Mean Corpuscular Hemoglobin 29.9 pg (26.0-33.0) Mean Corpuscular Hemoglobin Concent 34.7 g/dL (32.0-36.0) Red Cell Distribution Width 12.7 % (11.5-14.5) Platelet Count 212 K/uL (150-450) Mean Platelet Volume 9.5 fL (7.2-11.1) Neutrophils (%) (Auto) 77.5 % (39.4-72.5) Lymphocytes (%) (Auto) 15.7 % (17.6-49.6) Monocytes (%) (Auto) 4.8 % (4.1-12.4) Eosinophils (%) (Auto) 1.4 % (0.4-6.7) Basophils (%) (Auto) 0.6 % (0.3-1.4) Nucleated RBC Relative Count (auto) 0.0 /100WBC Neutrophils # (Auto) 6.0 K/uL (2.0-7.4) Lymphocytes # (Auto) 1.2 K/uL (1.3-3.6) Monocytes # (Auto) 0.4 K/uL (0.3-1.0) Eosinophils # (Auto) 0.1 K/uL (0.0-0.5) Basophils # (Auto) 0.0 K/uL (0.0-0.1) Nucleated RBC Absolute Count (auto) 0.00 K/uL Peripheral Blood Smear No Y/N Glomerular Filtration Rate Calc > 60.0 Calcium Level 9.3 mg/dl (8.4-10.2) Total Bilirubin 0.6 mg/dl (0.2-1.3) Aspartate Amino Transf (AST/SGOT) 25 U/L (0-35) Alanine Aminotransferase (ALT/SGPT) 41 U/L (0-56) Alkaline Phosphatase 83 U/L (0-126) Total Protein 6.5 g/dl (6.3-8.2) Albumin 3.9 g/dl (3.5-5.0) EKG/Imaging EKG Interpretation 12 lead EKG: Rhythm: Sinus bradycardia with ventricular rate of 51 bpm [place]: normal QRS: normal ST segments: normal Imaging Chest single view: HISTORY: Fall with left hip pain. COMPARISON: 11/09/2014 FINDINGS: Portable chest 1344 hours: Heart appears enlarged but may reflect patient positioning. There is no infiltrate or pleural effusion. No pneumothorax. Pulmonary vasculature is normal. Surgical clips noted in the left breast. IMPRESSION: Mild cardiomegaly, this may be accentuated by positioning. There is no evidence of acute cardiopulmonary normality otherwise. Report Dictated By: Qiana Carranza MD at 10/18/2017 3:21 PM Report E-Signed By: Qiana Carranza MD at 10/18/2017 3:25 PM HIP LEFT HISTORY: Fall with pain ADDITIONAL HISTORY: None. COMPARISON: None. FINDINGS: AP view the pelvis and coned-down AP and crosstable lateral views were obtained of the left hip. There is a minimally displaced left basicervical fracture of the left hip. Approximately 1 to 2 mm of anterolateral displacement of the distal fracture fragment noted. Femoral head remains in articulation with the acetabulum. Hip joint space is well-maintained. Pelvic ring is intact. Symphysis and SI joints are of normal caliber. No right hip fracture. There is mild narrowing of the right hip joint space. Bones are osteopenic. Multiple radiopaque objects seen overlying the pelvis IMPRESSION: 1. Minimally displaced basicervical fracture of the left femoral neck. 2. No pelvic ring fracture. 3. Degenerative changes present in the right hip. Report Dictated By: Qiana Carranza MD at 10/18/2017 3:08 PM Report E-Signed By: Qiana Carranza MD at 10/18/2017 3:14 PM ED Course/Re-evaluation ED Course Patient was admitted exam room, history of physical or pain. Differential diagnoses were considered. On examination lungs are clear, heart is regular, patient does have tenderness over the left hip. Patient had no tenderness over the femurs, lower leg. X-rays done of the right hip as well as a single view chest x-ray. Patient does have a fracture of the femoral neck. I discussed the case with Dr. Stanford, orthopedist. He reviewed the images and states that the patient is able to care for here in [place] and wanted me to admit the patient to the hospital. We did discuss that the patient does have a history of breast cancer. I discussed the case with Dr. Corey Mercedes, hospitalist, who agreed to accept the patient for admission. Decision to Disposition Date: Oct 18, 2017 Decision to Disposition Time: 16:16 Depart Departure Latest Vital Signs Vital Signs Date Time Temp Pulse Resp B/P (MAP) Pulse Ox O2 Delivery O2 Flow Rate FiO2 10/18/17 16:05 58 21 92 10/18/17 16:00 173/80 (111) 10/18/17 13:35 97.6 Room Air Impression: Primary Impression: Hip fracture, left Condition: Condition Unchanged Disposition: Admitted from ER Referrals: RODRÍGUEZ BURROWS MD (PCP) Problem Qualifiers Primary Impression: Hip fracture, left Encounter type: initial encounter Fracture type: closed Qualified Codes: S72.002A - Fracture of unspecified part of neck of left femur, initial encounter for closed fracture JACKI DUMONT [employer] REPA[employer] Oct 18, 2017 13:38
[2017-10-18] MEDS ORDERED: fentaNYL CITR 100 MCG/2 ML AMP IVP ONE (13:45)
[2017-10-18] MEDS ORDERED: fentaNYL CITR 100 MCG/2 ML AMP IM ONE (14:30)
[2017-10-18 14:58] LABS: PLATELET COUNT, AUTOMATED 212 K/uL (150-450)
--- NOTE | 2017-10-18 15:19 | RADIOLOGY IMAGING REPORT ---
FACILITY: [facility] [place] PATIENT NAME: Jimena Silver : 1945 MR: [id number] V: [id number] EXAM DATE: ORDERING PHYSICIAN: JACKI DUMONT TECHNOLOGIST: Location: [facility] [place] Patient: Jimena Silver : 1945 Visit/Account:[id number] Date of Sevice: 10/18/2017 HIP LEFT HISTORY: Fall with pain ADDITIONAL HISTORY: None. COMPARISON: None. FINDINGS: AP view the pelvis and coned-down AP and crosstable lateral views were obtained of the left hip. Ther e is a minimally displaced left basicervical fracture of the left hip. Approximately 1 to 2 mm of ant erolateral displacement of the distal fracture fragment noted. Femoral head remains in articulation w ith the acetabulum. Hip joint space is well-maintained. Pelvic ring is intact. Symphysis and SI joints are of normal caliber. No right hip fracture. There is mild narrowing of the right hip joint space. Bones are osteopenic. Multiple radiopaque objects seen overlying the pelvis IMPRESSION: 1. Minimally displaced basicervical fracture of the left femoral neck. 2. No pelvic ring fracture. 3. Degenerative changes present in the right hip. Report Dictated By: Qiana Carranza MD at 10/18/2017 3:08 PM Report E-Signed By: Qiana Carranza MD at 10/18/2017 3:14 PM WSN:[id number]
[2017-10-18] MEDS ORDERED: HYDROmorphone* 1 MG/ML 1 MG/ML ML IM ONE (15:20)
--- NOTE | 2017-10-18 15:29 | RADIOLOGY IMAGING REPORT ---
FACILITY: [facility] - [place] PATIENT NAME: Jimena Silver : 1945 MR: [id number] V: [id number] EXAM DATE: ORDERING PHYSICIAN: JACKI DUMONT TECHNOLOGIST: Location: [facility] - [place] Patient: Jimena Silver : 1945 Visit/Account:[id number] Date of Sevice: 10/18/2017 Chest single view: HISTORY: Fall with left hip pain. COMPARISON: 11/09/2014 FINDINGS: Portable chest 1344 hours: Heart appears enlarged but may reflect patient positioning. Ther e is no infiltrate or pleural effusion. No pneumothorax. Pulmonary vasculature is normal. Surgical clips noted in the left breast. IMPRESSION: Mild cardiomegaly, this may be accentuated by positioning. There is no evidence of acute cardiopulmonary normality otherwise. Report Dictated By: Qiana Carranza MD at 10/18/2017 3:21 PM Report E-Signed By: Qiana Carranza MD at 10/18/2017 3:25 PM WSN:[id number]
--- NOTE | 2017-10-18 15:54 | EKG ---
FACILITY: [facility] [place] PATIENT NAME: AMERICO WILLINGHAM : [id number] MR: [id number] V: [id number] EXAM DATE: ORDERING PHYSICIAN: JACKI DUMONT TECHNOLOGIST: GISELLA Leonard Reason : PRE-OP Blood Pressure : / mmHG Vent. Rate : 051 BPM Atrial Rate : 051 BPM P-R Int : 186 ms QRS Dur : 078 ms QT Int : 442 ms P-R-T Axes : 045 040 055 degrees QTc Int : 407 ms Sinus bradycardia Hint of delta wave in limb leads No acute appearing findings Confirmed by OUMAR KERN ([id number]) on 10/18/2017 4:01:25 PM Referred By: JULIA Confirmed By:OUMAR KERN
[2017-10-18] MEDS ORDERED: HYDROmorphone* 1 MG/ML 1 MG/ML ML IVP ONE (16:30)
[2017-10-18 16:49] VITALS: BP 158/88
[2017-10-18] MEDS ORDERED: PROMETHAZINE 25 MG/ML 1 ML AMP IVP PRN (17:20)
--- NOTE | 2017-10-18 18:41 | History & Physical ---
History of Present Illness Chief Complaint Fall/hip pain History of Present Illness 72yo female with PMHx significant for HTN, breast cancer. She reports tripping over a cord and falling to the ground on her driveway. She had significant pain and was unable to arise. She was transported via EMS to [facility] ER. She denies any symptoms preceding her fall - No CP/SOB/palpitations/weakness/dizziness. She was found to have left hip fracture. She has been admitted for surgical repair. She has no history of heart or lung disease. She has no history of bleeding or clotting problems. She has tolerated anesthesia without problems. History Problems: (1) Hypertension Status: Acute (2) Breast cancer, left Status: Chronic Comment: lumpectomy followed by radiation (3) Dysphagia Status: Resolved (4) GERD (gastroesophageal reflux disease) Status: Chronic (5) Multinodular goiter (nontoxic) Status: Chronic (6) Hip fracture, left Status: Acute Home Meds Active Scripts Ranitidine Hcl (RANITIDINE HCL) 150 Mg Capsule, 1 CAP PO QHS, #60 CAPSULE Prov:GIOVANNA JACOBS MD 10/18/17 Oxybutynin Chloride (OXYBUTYNIN CHLORIDE ER) 10 Mg Tab.er.24, 1 TAB PO QDAY, # 90 TAB.SR 1 Refill Prov:RODRÍGUEZ BURROWS MD 08/29/17 Valacyclovir Hcl (VALACYCLOVIR) 500 Mg Tablet, 500 MG PO BID for 3 Days, #6 TAB 4 Refills Prov:RODRÍGUEZ BURROWS MD 06/29/17 Fluticasone Propionate (Fluticasone Propionate) 50 Mcg/Actuation Danese.susp, 2 SPRAY NA DAILY for 30 Days, #1 BOTTLE 4 Refills Prov:RODRÍGUEZ BURROWS MD 06/29/17 Lisinopril/Hydrochlorothiazide (LISINOPRIL-HCTZ 20-12.5 MG TAB) 1 Each Tablet, 1 EACH PO DAILY for 90 Days, #90 TAB 4 Refills Prov:RODRÍGUEZ BURROWS MD 04/20/17 Reported Medications Anastrozole (ANASTROZOLE) 1 Mg Tablet, 1 MG PO DAILY 08/31/17 Cholecalciferol (Vitamin D3) (VITAMIN D-3) 2,000 Unit Capsule, 2000 UNIT PO, CAPSULE 08/31/17 Calcium Carbonate (CALCIUM) 500 Mg Tablet, 1000 MG PO DAILY 08/31/17 Multivits-Min/Iron/FA/Lutein (Centrum Silver Women Tablet) 1 Each Tablet, 1 TAB PO DAILY 06/29/17 Ibuprofen (IBUPROFEN) 200 Mg Tablet, 2 TAB PO PRN, TAB 04/20/17 Ubidecarenone (Co Enzyme Q10) 50 Mg Capsule, 200 MG PO DAILY, 0 Refills 05/13/10 Aspirin (Aspirin Ec) 81 Mg Tablet.dr, 81 MG PO DAILY 05/13/10 Discontinued Reported Medications Omeprazole (OMEPRAZOLE) 40 Mg Capsule.dr, 1 CAP PO QDAY, CAP 09/27/17 Allergies: Coded Allergies: amlodipine (Verified Allergy, Unknown, 02/27/17) EHR CONVERSION alendronate sodium (Unverified Adverse Reaction, Intermediate, 11/09/14) DENTAL PAIN Patient History: FH: heart disease FATHER, , Age:89 FH: hypertension MOTHER, , Age:98 Hx Smoking: Yes (QUIT 1998) Smoking Status: Former Smoker Caffeine/Cups Per Day: OCC Hx Alcohol Use: Yes Hx Substance Use Disorder: No Social Drug Use: Never Review of Systems Constitutional: No Fever, No Chills Neurological: No Syncope, No Confusion, No Weakness, No Dizziness Eyes: No Vision Change, No Loss of Vision Cardiovascular: No Chest Pain, No Palpitations, No Orthostatic Hypotension Respiratory: No Shortness of Breath, No Cough, No Wheezing Gastrointestinal: No Nausea, No Vomiting, No Diarrhea, No Hematemesis, No Hematochezia, No Melena Genitourinary: No Dysuria, No Hematuria, No Urinary Incontinence Musculoskeletal: Pain (acute) Psychiatric: No Depression Exam Vital Signs Vital Signs Date Time Temp Pulse Resp B/P (MAP) Pulse Ox O2 Delivery O2 Flow Rate FiO2 10/18/17 16:49 97.5 62 16 158/88 (111) 90 Room Air General Appearance: Alert, Awake Neuro: Other (no focal deficits noted - lower extremities not fully tested due to fracture/sensory grossly intact) Eyes: PERRLA ENT: Oropharynx Clear Neck: No Masses Cardiovascular: Regular Rate and Rhythm, No Edema, No JVD Respiratory: Clear to Auscultation Chest: No Tenderness GI: Abd Soft and Non-Tender : No CVA Tenderness Lymph: No Adenopathy Extremities: Warm, Pulses (pedal pulses normal), Perfused Integumentary: Skin Intact without Lesion / Mass Psych: Alert & Oriented X3 Medical Decision Making Data Points Result Diagram: 10/18/17 1449 10/18/17 1449 Item Value Date Time Albumin 3.9 g/dl 10/18/17 1449 Total Protein 6.5 g/dl 10/18/17 1449 Alkaline Phosphatase 83 U/L 10/18/17 1449 Alanine Aminotransferase (ALT/SGPT) 41 U/L 10/18/17 1449 Aspartate Amino Transf (AST/SGOT) 25 U/L 10/18/17 1449 Total Bilirubin 0.6 mg/dl 10/18/17 1449 Calcium Level 9.3 mg/dl 10/18/17 1449 EKG / Imaging EKG Interpretation PATIENT NAME: JIMENA WILLINGHAM : [id number] MR: [id number] V: [id number] EXAM DATE: ORDERING PHYSICIAN: JACKI DUMONT TECHNOLOGIST: GISELLA Test Reason : PRE-OP Blood Pressure : / mmHG Vent. Rate : 051 BPM Atrial Rate : 051 BPM P-R Int : 186 ms QRS Dur : 078 ms QT Int : 442 ms P-R-T Axes : 045 040 055 degrees QTc Int : 407 ms Sinus bradycardia Hint of delta wave in limb leads No acute appearing findings Confirmed by OUMAR KERN ([id number]) on 10/18/2017 4:01:25 PM Referred By: JULIA Confirmed By:OUMAR KERN Imaging PATIENT NAME: Jimena Willingham : 1945 MR: [id number] V: [id number] EXAM DATE: [id number] ORDERING PHYSICIAN: JACKI DUMONT TECHNOLOGIST: Location: [facility] [place] Patient: Jimena Willingham : 1945 Visit/Account:[id number] Date of Sevice: 10/18/2017 HIP LEFT HISTORY: Fall with pain ADDITIONAL HISTORY: None. COMPARISON: None. FINDINGS: AP view the pelvis and coned-down AP and crosstable lateral views were obtained of the left hip. There is a minimally displaced left basicervical fracture of the left hip. Approximately 1 to 2 mm of anterolateral displacement of the distal fracture fragment noted. Femoral head remains in articulation with the acetabulum. Hip joint space is well-maintained. Pelvic ring is intact. Symphysis and SI joints are of normal caliber. No right hip fracture. There is mild narrowing of the right hip joint space. Bones are osteopenic. Multiple radiopaque objects seen overlying the pelvis IMPRESSION: 1. Minimally displaced basicervical fracture of the left femoral neck. 2. No pelvic ring fracture. 3. Degenerative changes present in the right hip. Report Dictated By: Qiana Carranza MD at 10/18/2017 3:08 PM Report E-Signed By: Qiana Carranza MD at 10/18/2017 3:14 PM WSN:[id number] PATIENT NAME: Jimena Willingham : 1945 MR: [id number] V: [id number] EXAM DATE: ORDERING PHYSICIAN: JACKI DUMONT TECHNOLOGIST: Location: [facility] [place] Patient: Jimena Willingham : 1945 Visit/Account:[id number] Date of Sevice: 10/18/2017 Chest single view: HISTORY: Fall with left hip pain. COMPARISON: 11/09/2014 FINDINGS: Portable chest 1344 hours: Heart appears enlarged but may reflect patient positioning. There is no infiltrate or pleural effusion. No pneumothorax. Pulmonary vasculature is normal. Surgical clips noted in the left breast. IMPRESSION: Mild cardiomegaly, this may be accentuated by positioning. There is no evidence of acute cardiopulmonary normality otherwise. Report Dictated By: Qiana Carranza MD at 10/18/2017 3:21 PM Report E-Signed By: Qiana Carranza MD at 10/18/2017 3:25 PM WSN:[id number] Assessment and Plan Problems: (1) Hip fracture, left Status: Acute Assessment & Plan: Orthopedics (Dr. Cervantes) has seen her and plans surgical repair. She will be at slight increased risk due to age >70. No obvious contraindications to surgery. Will start Lovenox tonight for DVT prophylaxis and hold in AM for planned surgery in the afternoon tomorrow. (2) Breast cancer, left Status: Chronic Assessment & Plan: Lumpectomy followed by radiation. Will continue her anastrozole therapy. (3) Hypertension Status: Acute Assessment & Plan: Will monitor her BPs and resume her lisinopril and HCTZ as needed. (4) GERD (gastroesophageal reflux disease) Status: Chronic Assessment & Plan: Continue ranitidine. Copies to: RODRÍGUEZ BURROWS MD Venous Thromboembolism Antithrombotics Is Pt On Any Antithrombotics?: Yes Exam Sepsis Risk: No Definite Risk Problem Qualifiers (1) Hip fracture, left: Encounter type: initial encounter Fracture type: closed Qualified Codes: S72.002A - Fracture of unspecified part of neck of left femur, initial encounter for closed fracture OUMAR KERN MD Oct 18, 2017 18:41
[2017-10-18] MEDS: NS(*) 0.9% 1000 ML BAG 1,000 ML IV PRN (18:44)
[2017-10-18] MEDS: HYDROmorphone* 1 MG/ML 1 MG/ML ML IVP PRN (18:45)
[2017-10-18 19:12] VITALS: BP_SYST 156; BP_SYST 171; BP_DIAS 82; BP_DIAS 83
[2017-10-18] MEDS: RANITIDINE HCL 150 MG TAB PO SCH (20:48)
[2017-10-18] MEDS ORDERED: ENOXAPARIN 40 MG/0.4ML SYR SC ONE (21:00)
[2017-10-18 23:47] VITALS: BP 126/91
[2017-10-19] VITALS (15 sets, daily range): BP systolic 114–206; BP diastolic 65–95
[2017-10-19] MEDS: HYDROmorphone* 1 MG/ML 1 MG/ML ML IVP PRN ×3 (01:23→12:55)
[2017-10-19] MEDS: NS(*) 0.9% 1000 ML BAG 1,000 ML IV PRN (07:41)
[2017-10-19 08:00] LABS: PLATELET COUNT, AUTOMATED 183 K/uL (150-450)
[2017-10-19] MEDS ORDERED: NORMOSOL R SOLN(*) 1000 ML BAG 1,000 ML IV ONE ×2 (08:50→16:50)
[2017-10-19] MEDS: RANITIDINE HCL 150 MG TAB PO SCH ×2 (08:58→21:41)
[2017-10-19] MEDS: ANASTROZOLE 1 MG TAB PO SCH (09:00)
[2017-10-19] MEDS: CALCIUM OYSTER SHELL 500MG TAB PO SCH (09:00)
[2017-10-19] MEDS: LISINOPRIL 20 MG TAB PO SCH (09:00)
[2017-10-19] MEDS: HYDROCHLOROTHIAZIDE 25 MG TAB PO SCH (09:00)
--- NOTE | 2017-10-19 11:39 | Hospitalist Progress Note ---
Subjective Progress Notes Subjective No cp/sob. She thinks she might have a contact misplaced in her left eye. Physical Exam Vital Signs Date Time Temp Pulse Resp B/P (MAP) Pulse Ox O2 Delivery O2 Flow Rate FiO2 10/19/17 11:04 98.3 63 16 172/81 (111) 97 Nasal Cannula 2.0 Intake and Output 10/20/17 06:59 Intake Total 992 ml Balance 992 ml Intake Oral 2 ml IV Total 990 ml General Appearance: Alert, Awake, No Acute Distress Eyes: Other (No contact seen in the left eye. Mild injected sclera laterally) Result Diagram: 10/19/17 0749 10/19/17 0749 Assessment and Plan Problems: (1) Hip fracture, left Status: Acute Assessment & Plan: Orthopedics (Dr. Cervantes) has seen her and plans surgical repair. She will be at slight increased risk due to age >70. No obvious contraindications to surgery. She received one dose of Lovenox last night for DVT prophylaxis. (2) Breast cancer, left Status: Chronic Assessment & Plan: Lumpectomy followed by radiation. Will continue her anastrozole therapy. (3) Hypertension Status: Acute Assessment & Plan: Will monitor her BPs and resume her lisinopril and HCTZ as needed. (4) GERD (gastroesophageal reflux disease) Status: Chronic Assessment & Plan: Continue ranitidine. Exam Sepsis Risk: No Definite Risk Problem Qualifiers (1) Hip fracture, left: Encounter type: initial encounter Fracture type: closed Qualified Codes: S72.002A - Fracture of unspecified part of neck of left femur, initial encounter for closed fracture ANGE REDDY MD Oct 19, 2017 11:39
[2017-10-19] MEDS ORDERED: [UNRECOGNIZED DRUG - CODE] PO (13:12)
[2017-10-19] MEDS ORDERED: ceFAZolin(*) 1 GM VIAL 1 GM in NS(*) 0.9% 100 ML ADDVANT BAG 100 ML IV ONE (13:30)
[2017-10-19] MEDS ORDERED: ceFAZolin(*) 2GM/D5W 50ML 50 ML IVPB ONE (13:30)
[2017-10-19] MEDS ORDERED: ROPIVACAINE 0.2% 20 ML VIAL ONE (14:49)
[2017-10-19] MEDS ORDERED: PROMETHAZINE 25 MG/ML 1 ML AMP IVP PRN (16:20)
[2017-10-19] MEDS ORDERED: BISACODYL 10 MG SUPP PR PRN (16:20)
[2017-10-19] MEDS ORDERED: MAGNESIUM CITRATE 300 ML BTL PO PRN (16:20)
[2017-10-19] MEDS ORDERED: ONDANSETRON 4 MG/2 ML VIAL IVP PRN (16:20)
[2017-10-19] MEDS ORDERED: diphenhydrAMINE 25 MG CAP PO PRN (16:20)
[2017-10-19] MEDS ORDERED: diphenhydrAMINE 50 MG/ML VIAL IVP PRN (16:20)
[2017-10-19] MEDS ORDERED: LR 1000 ML BAG 1000 ML IV PRN (16:20)
[2017-10-19] MEDS ORDERED: FLUSH 10 ML SYR IVP PRN (16:20)
[2017-10-19] MEDS ORDERED: ZOLPIDEM TARTRATE 5 MG TAB PO PRN (16:20)
[2017-10-19] MEDS ORDERED: HYDROmorphone HCL 2 MG/ML SDV IVP PRN (16:20)
[2017-10-19] MEDS ORDERED: MAGNESIUM HYDROXIDE* 30ML UDCP PO PRN (16:20)
--- NOTE | 2017-10-19 16:21 | RADIOLOGY IMAGING REPORT ---
FACILITY: [facility] - [place] PATIENT NAME: Jimena Silver : 1945 MR: [id number] V: [id number] EXAM DATE: ORDERING PHYSICIAN: LUCY MCDONNELL TECHNOLOGIST: Location: [facility] - [place] Patient: Jimena Silver : 1945 Visit/Account:[id number] Date of Sevice: 10/19/2017 Exam type: C-ARM FLUORO 1 HR History: LEFT HIP PINNING COMPARISON: Left hip series October 18, 2017 Findings:: six portable intraoperative C-arm spot views the left hip demonstrate placement of three o rthopedic screws traversing the basicervical fracture of the left femoral neck appears relatively goo d anatomic alignment. The total fluoroscopy time was 85.1 seconds. The cumulative fluoroscopy dose was 0.63305 mGray per meter squared IMPRESSION: 1. As above Report Dictated By: Michell Killian MD at 10/19/2017 4:15 PM Report E-Signed By: Michell Killian MD at 10/19/2017 4:18 PM WSN:[id number]
[2017-10-19] MEDS ORDERED: hydrALAZINE HCL 20 MG/ML VIAL ONE (16:24)
[2017-10-19] MEDS ORDERED: ceFAZolin(*) 2GM/D5W 50ML 50 ML IVPB SCH (17:00)
[2017-10-19] MEDS ORDERED: fentaNYL CITR 100 MCG/2 ML AMP ONE (17:05)
[2017-10-19] MEDS ORDERED: LISINOPRIL 20 MG TAB PO ONE (17:35)
[2017-10-19] MEDS ORDERED: HYDROCHLOROTHIAZIDE 25 MG TAB PO ONE (17:35)
[2017-10-19] MEDS ORDERED: METOPROLOL TART 5 MG/5 ML VIAL IVP PRN (18:40)
--- NOTE | 2017-10-19 18:43 | CONSULTATION ---
EVENT DATE: October 18, 2017 CHIEF COMPLAINT Left hip pain and fracture. HISTORY OF PRESENT ILLNESS The patient is a 72-year-old female who sustained a fall at home and landed on her left hip. She was unable to really weight bear and do very well on it, and so therefore she presented to the Emergency Department and was found to have left femoral neck fracture which was minimally displaced, and so therefore, Orthopedics was consulted for definitive management of the fracture, and she was admitted to the medical service. She denies any previous problems or issues associated with this hip. PAST MEDICAL HISTORY Significant for breast cancer and hypertension. Otherwise, she denies any major medical problems associated with this. ALLERGIES ALENDRONATE and AMLODIPINE. MEDICATIONS Please see the intake medication form and reconciliation form for medications. SOCIAL HISTORY The patient is a prior smoker, but she has quit for over the past decade or two. She does drink rarely where she only has a couple drinks a month, and she does live at home. She is a community ambulator. REVIEW OF SYSTEMS Otherwise orthopedically irrelevant and unremarkable. PAST FAMILY MEDICAL HISTORY Noncontributory. PHYSICAL EXAMINATION GENERAL: The patient is sitting in a hospital bed in no acute distress, comfortable and cooperative. Answers all questions appropriately. HEENT: Normocephalic. Extraocular movements intact. NECK: Supple. Trachea midline. CHEST: Rises and falls symmetrically. She has no labored breathing or audible wheezing associated with it. HEART: Regular rate. ABDOMEN: Soft and nondistended. EXTREMITIES: As for her left lower extremity, she is able to wiggle the toes on that side. She does have light touch sensation, and we did not move her hip secondarily due to the nature of the fracture. Her right leg is otherwise able to be moved in flex and extend without any major difficulty. IMAGING X-rays are reviewed, do show a nondisplaced femoral neck fracture with a little bit of apex anterior associated with it. ASSESSMENT AND PLAN This patient is a 72-year-old female with a left femoral neck fracture. I talked to her about the implications of this as well as treatment options. Given her community ambulation status and otherwise decent health, she wants to go ahead with a hip fixation with three screws. I talked to her about the implications of this versus hemiarthroplasty. She said she would like to try the three screws to preserve her own femoral head. She does understand that we may need to convert it to a hemiarthroplasty or a full arthroplasty at another time if does not heal. After discussion of those risks and benefits, informed consent was obtained, and we will get her set up to do surgery on October 18, 2017. PAUL
--- NOTE | 2017-10-19 18:43 | Miscellaneous Provider Note ---
Miscellaneous Provider Note Note The patient denies any cp/cobian/sob. Apparently, per nursing staff report, she was held longer in PACU for high blood pressures. She was given IV hydralazine , hctz, and lisinopril. Currently, has a sbp about 190 and dbp 90. The patient appears comfortable, but reporting surgical site pain. Will use metoprolol IV for BP control. ANGE REDDY MD Oct 19, 2017 18:43
--- NOTE | 2017-10-19 19:25 | OPERATIVE REPORT 1 ---
EVENT DATE: October 18, 2017 SURGEON: Adarsh Cervantes MD ANESTHESIOLOGIST: Carson Mckeon MD ANESTHESIA: General LMA with a spinal. SPRAY GUNNER: TIFFANY De La [place] PREOPERATIVE DIAGNOSIS Left minimally displaced femoral neck fracture. POSTOPERATIVE DIAGNOSIS Left minimally displaced femoral neck fracture. PROCEDURE PERFORMED Open reduction, internal fixation with cannulated screws of a left femoral neck fracture. FINDINGS The patient had a femoral neck fracture which was not very displaced and was amenable for screw fixation and has good bone purchase. ESTIMATED BLOOD LOSS About 20 to 30 mL. DRAINS None. COMPLICATIONS None. TOURNIQUET TIME Not applicable. IMPLANTS USED Synthes cannulated large screws which were partially threaded. SPECIMENS None. INDICATIONS AND HISTORY This patient is a 72-year-old female who presented to the hospital with a left femoral neck fracture. Orthopedics was consulted for definitive management of the fracture. She had a minimally displaced femoral neck fracture, so we discussed hemiarthroplasty versus a cannulated screw placement. She wanted to go ahead with the cannulated screw placement to try and preserve her [place] bone , and so therefore, we went over the risks and benefits associated with this, and informed consent was obtained at the hospital visit today. DESCRIPTION OF PROCEDURE As the patient was brought in the operating room, she and the procedure were both verified. She was placed supine on the fracture table after being given a spinal, and then the left lower extremity was then prepped and draped in the usual fashion. A timeout was observed verifying the correct patient and procedure. After getting the C-arm well aligned and making sure we still were in good position for cannulated screw placement. I was then able to make a small incision over the later aspect of the leg. This was taken through the skin and subcutaneous tissue and down through the IT band. I made a small window through the IT band and then was able to get down to the lateral aspect of the femur. Once I was down to the lateral aspect of the femur, I then took the pin out of the 6.5 x 7.3 cannulated screw set and was able to drill the pin through the lateral cortex and up towards the femoral head in the inferior portion. We had to realign this a couple times to get it in perfect position, but once we had it in excellent position, I was then able to drill it up in towards the femoral head and all the way up to where we had a good tip to apex distance associated with this into the subchondral bone. I then took two more pins and aligned them to be in an inverted triangle to where the two other points were up above it and spaced out equally. I was then able to place both pins without any difficulty up into the tip of the femoral head. We did have a little bit of conjoining angle associated with this, but this was accepted secondarily due to the bone being pretty good, and I did not want to make more holes within the bone. Once I did this, I then drilled the lateral cortex on the inferior pin and then drilled most of the way up through the superior pins. I was then able to place three screws up into this area. They were partially threaded Synthes cannulated screws with a 105 and a 95 superiorly and then a 110 inferiorly. This then compressed the fracture well and had good angulation associated with it, and so therefore, this was accepted as the final construct. The pins were then removed. Final C-arm images were taken, and then we irrigated with copious amounts of saline. I then closed the IT band with a 2-0 Vicryl in a [id number] type fashion. This was then followed by 3-0 Vicryl in the subcutaneous tissue and then a 4-0 Monocryl in the skin with the ends buried. The wound was then dressed with Xerform, gauze 4 x 4's, and a soft dressing. Then, the patient was awakened, extubated, and transferred to PACU in stable condition. She will be 80% weightbearing with the walker. PAUL
[2017-10-19] MEDS: ceFAZolin(*) 2GM/D5W 50ML 50 ML IVPB SCH (21:41)
[2017-10-20] VITALS (8 sets, daily range): BP systolic 135–171; BP diastolic 68–83; Ht 175.3 cm; Wt 94.8 kg
[2017-10-20] MEDS: ceFAZolin(*) 2GM/D5W 50ML 50 ML IVPB SCH (05:26)
[2017-10-20 05:46] LABS: PLATELET COUNT, AUTOMATED 156 K/uL (150-450)
[2017-10-20] MEDS: HYDROCHLOROTHIAZIDE 25 MG TAB PO SCH (08:19)
[2017-10-20] MEDS: RANITIDINE HCL 150 MG TAB PO SCH ×2 (08:19→21:06)
[2017-10-20] MEDS: LISINOPRIL 20 MG TAB PO SCH (08:20)
[2017-10-20] MEDS: CALCIUM OYSTER SHELL 500MG TAB PO SCH (08:20)
[2017-10-20] MEDS: ANASTROZOLE 1 MG TAB PO SCH (08:20)
[2017-10-20] MEDS ORDERED: NS(*) 0.9% 500 ML BAG 500 ML IV ONE (09:25)
[2017-10-20] MEDS: ENOXAPARIN 40 MG/0.4ML SYR SC SCH (09:45)
[2017-10-20] MEDS ORDERED: ceFAZolin(*) 2GM/D5W 50ML 50 ML IVPB ONE (13:30)
[2017-10-20] MEDS ORDERED: MIDAZOLAM 2 MG/2 ML VIAL ONE (14:00)
[2017-10-20] MEDS ORDERED: KETAMINE HCL 200 MG/20 ML MDV ONE ×2 (14:00)
--- NOTE | 2017-10-20 14:02 | Hospitalist Progress Note ---
Subjective Progress Notes Subjective Feeling better today. Pain is under better control. Has been up and walking in the [place] this am. Physical Exam Vital Signs Date Time Temp Pulse Resp B/P (MAP) Pulse Ox O2 Delivery O2 Flow Rate FiO2 10/20/17 12:02 98.3 28 171/78 (109) 89 Nasal Cannula 2.0 10/20/17 07:32 92 Intake and Output 10/21/17 07:00 Intake Total 1932 ml Output Total 300 ml Balance 1632 ml Intake Oral 480 ml IV Total 1452 ml Output Urine Total 300 ml # Voids 3 General Appearance: Alert, Awake, No Acute Distress, Afebrile Neuro: No Gross deficits Cardiovascular: Regular Rate and Rhythm Respiratory: Clear to Auscultation GI: Soft and Non-Tender Extremities: Warm Integumentary: Other (Bandage over surgical wound.) Psych: Appropriate Mood & Affect Result Diagram: 10/20/1752310/20/17523 Assessment and Plan Problems: (1) Hip fracture, left Status: Acute Assessment & Plan: Orthopedics (Dr. Cervantes) has seen her and plans surgical repair. She will be at slight increased risk due to age >70. No obvious contraindications to surgery. She will be on Lovenox for DVT prophylaxis while hospitalized. (2) Breast cancer, left Status: Chronic Assessment & Plan: Lumpectomy followed by radiation. Will continue her anastrozole therapy. (3) Hypertension Status: Acute Assessment & Plan: Will monitor her BPs and resume her lisinopril and HCTZ as needed. (4) GERD (gastroesophageal reflux disease) Status: Chronic Assessment & Plan: Continue ranitidine. Time Spent on Plan of Care: < 30 min Exam Sepsis Risk: No Definite Risk Problem Qualifiers (1) Hip fracture, left: Encounter type: initial encounter Fracture type: closed Qualified Codes: S72.002A - Fracture of unspecified part of neck of left femur, initial encounter for closed fracture RADHA KERN MD Oct 20, 2017 14:01
[2017-10-21 02:27] VITALS: BP 148/69
[2017-10-21 05:34] VITALS: BP 124/61
[2017-10-21 06:37] LABS: PLATELET COUNT, AUTOMATED 137 K/uL (150-450)
[2017-10-21] MEDS: LISINOPRIL 20 MG TAB PO SCH (09:00)
[2017-10-21] MEDS: RANITIDINE HCL 150 MG TAB PO SCH (09:08)
[2017-10-21] MEDS: ANASTROZOLE 1 MG TAB PO SCH (09:09)
[2017-10-21] MEDS: HYDROCHLOROTHIAZIDE 25 MG TAB PO SCH (09:09)
[2017-10-21] MEDS: CALCIUM OYSTER SHELL 500MG TAB PO SCH (09:10)
[2017-10-21] MEDS: ENOXAPARIN 40 MG/0.4ML SYR SC SCH (09:10)
--- NOTE | 2017-10-21 10:04 | Hospitalist Depart ---
Discharge Summary Reason for Hosp/Final Diag: (1) Hip fracture, left Status: Acute Hospital Course & Plan: Dr. Cervantes did surgically repair this on 10/18/2017. She is on anticoagulation with Lovenox. (2) Breast cancer, left Status: Chronic Hospital Course & Plan: Lumpectomy followed by radiation. Will continue her anastrozole therapy. (3) Hypertension Status: Acute Hospital Course & Plan: She is on chronic treatment with lisinopril and hydrochlorothiazide. (4) GERD (gastroesophageal reflux disease) Status: Chronic Hospital Course & Plan: She is on chronic treatment with ranitidine. Departure Latest Vital Signs Vital Signs 10/21/17 10/21/17 10/21/17 05:34 09:49 09:52 Temp 97.8 Pulse 58 Resp 12 B/P (MAP) 124/61 (82) Pulse Ox 96 O2 Delivery Nasal Cannula O2 Flow Rate 2.0 Weight (Pounds): 209 Result Diagram: 10/21/1755710/21/1758 Condition: Improved Discharge: [facility] PT/OT Follow Up For: PT Evaluation and Treat Discharge Instructions Home Meds Active Scripts Ranitidine Hcl (RANITIDINE HCL) 150 Mg Capsule, 1 CAP PO QHS, #60 CAPSULE Prov:GIOVANNA JACOBS MD 10/18/17 Oxybutynin Chloride (OXYBUTYNIN CHLORIDE ER) 10 Mg Tab.er.24, 1 TAB PO QDAY, # 90 TAB.SR 1 Refill Prov:RODRÍGUEZ BURROWS MD 08/29/17 Valacyclovir Hcl (VALACYCLOVIR) 500 Mg Tablet, 500 MG PO BID for 3 Days, #6 TAB 4 Refills Prov:RODRÍGUEZ BURROWS MD 06/29/17 Fluticasone Propionate (Fluticasone Propionate) 50 Mcg/Actuation [place].susp, 2 SPRAY NA DAILY for 30 Days, #1 BOTTLE 4 Refills Prov:RODRÍGUEZ BURROWS MD 06/29/17 Lisinopril/Hydrochlorothiazide (LISINOPRIL-HCTZ 20-12.5 MG TAB) 1 Each Tablet, 1 EACH PO DAILY for 90 Days, #90 TAB 4 Refills Prov:RODRÍGUEZ BURROWS MD 04/20/17 Reported Medications Ubidecarenone (LIQSORB) 100 Mg/1 Ml Liquid, 100 MG PO QDAY 10/19/17 Anastrozole (ANASTROZOLE) 1 Mg Tablet, 1 MG PO DAILY 08/31/17 Cholecalciferol (Vitamin D3) (VITAMIN D-3) 2,000 Unit Capsule, 2000 UNIT PO, CAPSULE 08/31/17 Calcium Carbonate (CALCIUM) 500 Mg Tablet, 1000 MG PO DAILY 08/31/17 Multivits-Min/Iron/FA/Lutein (Centrum Silver Women Tablet) 1 Each Tablet, 1 TAB PO DAILY 06/29/17 Ibuprofen (IBUPROFEN) 200 Mg Tablet, 2 TAB PO PRN, TAB 04/20/17 Aspirin (Aspirin Ec) 81 Mg Tablet.dr, 81 MG PO DAILY 05/13/10 Discontinued Reported Medications Ubidecarenone (Co Enzyme Q10) 50 Mg Capsule, 200 MG PO DAILY, 0 Refills 05/13/10 Omeprazole (OMEPRAZOLE) 40 Mg Capsule.dr, 1 CAP PO QDAY, CAP 09/27/17 Diet: Regular Activity: With Walker Special Instructions: 80% weight baring on left side Venous Thromboembolism Antithrombotics Is Pt On Any Antithrombotics?: Yes Problem Qualifiers (1) Hip fracture, left: Encounter type: initial encounter Fracture type: closed Qualified Codes: S72.002A - Fracture of unspecified part of neck of left femur, initial encounter for closed fracture GIOVANNA DASILVA DO Oct 21, 2017 10:04
== END 2017-10-21 10:50 | DRG 482 ==
LOC: ER 13:37 → MED 16:07
PROVIDERS: ADMIT Internal Medicine; ATTEND Internal Medicine
PROC: 0QS704Z Reposition Left Upper Femur with Internal Fixation Device, Open Approach (ICD-10-PCS; principal; 2017-10-18)
DX: S72.042A Displaced fracture of base of neck of left femur, initial encounter for closed fracture (principal); I10 Essential (primary) hypertension; K21.9 Gastro-esophageal reflux disease without esophagitis; E04.2 Nontoxic multinodular goiter; W01.0XXA Fall on same level from slipping, tripping and stumbling without subsequent striking against object, initial encounter; Y93.H9 Activity, other involving exterior property and land maintenance, building and construction; Y92.008 Other place in unspecified non-institutional (private) residence as the place of occurrence of the external cause; Y99.8 Other external cause status; Z90.710 Acquired absence of both cervix and uterus; Z87.440 Personal history of urinary (tract) infections; Z85.3 Personal history of malignant neoplasm of breast; Z92.3 Personal history of irradiation; Z87.891 Personal history of nicotine dependence; Z88.8 Allergy status to other drugs, medicaments and biological substances
CPT/HCPCS: 36415; 71045; 76000; 82040; 82247; 82310; 82374; 82435; 82565; 82947; 84075; 84132; 84155; 84295; 84450; 84460; 84520; 85025; 86850; 86900; 86901; 93005; 96372; 96374; 97161; 97165; 99284; J0360; J0690; J1170; J1650; J2250; J2405; J2550; J2795; J3010; J3490; J7030; J7040; J9999

== ENCOUNTER → 2017-10-18 | Outpatient (CLI) | payer MEDICARE ==
[~2017-10-18] MED LIST changes: +RANI150C17 PO; +[UNRECOGNIZED DRUG - CODE] PO
== END ==
LOC: AMB 12:51
PROVIDERS: ATTEND Nurse Practitioner
DX: M25.552 Pain in left hip (principal); W01.0XXA Fall on same level from slipping, tripping and stumbling without subsequent striking against object, initial encounter; Y92.014 Private driveway to single-family (private) house as the place of occurrence of the external cause
CPT/HCPCS: A0425; A0427

== ENCOUNTER 2017-10-21 10:50 | Inpatient (IN) | payer MEDICARE ==
[~2017-10-21] VITALS: Ht 175.3 cm; Wt 86.9 kg
[2017-10-21 10:30] VITALS: BP 145/60
[~2017-10-21 10:50] MED LIST changes: +[UNRECOGNIZED DRUG - CODE] PO; -ceFAZolin(*) 1 GM VIAL 1 GM in NS(*) 0.9% 100 ML ADDVANT BAG 100 ML IV ONE
[2017-10-21] MEDS ORDERED: MAGNESIUM CITRATE 300 ML BTL PO PRN (11:00)
[2017-10-21] MEDS ORDERED: MAGNESIUM HYDROXIDE* 30ML UDCP PO PRN (11:00)
[2017-10-21] MEDS ORDERED: ZOLPIDEM TARTRATE 5 MG TAB PO PRN (11:00)
[2017-10-21] MEDS ORDERED: diphenhydrAMINE 25 MG CAP PO PRN (11:00)
--- NOTE | 2017-10-21 11:22 | Consultant Pharmacy Review ---
Valve Repairer Reclamation Review Medication Review Do All Mecications have a Diag: Yes Beers Criteria Medication 2015 Anticholinergics exclude TCAs: Diphenhydramine (PRN) Non-BZD Hypnotics: Zolpidem (prn, fall risk. Review the need for at least every 14 days.) Other General Cautions Lexicomp Interaction Analysis A = No known interaction C = Monitor therapy X = Avoid combination B = No action needed D = Consider therapy modification Drugs in this analysis: Ambien; Arimidex; Bisacodyl; Calcium Carbonate; DiphenhydrAMINE (Systemic); HydroCHLOROthiazide; Lovenox; Magnesium Citrate; Magnesium Hydroxide; Percocet; Prinivil; Zantac * Drug-Drug Interactions * D Ambien (SHEET METAL WORKER HELPER Depressants) Percocet (OxyCODONE) D Ambien (Zolpidem) DiphenhydrAMINE (Systemic) (SHEET METAL WORKER HELPER Depressants) Depends on Brand Name D Ambien (Zolpidem) Percocet (SHEET METAL WORKER HELPER Depressants) Depends on Brand Name D Bisacodyl Calcium Carbonate (Antacids) D Bisacodyl Magnesium Hydroxide (Antacids) D DiphenhydrAMINE (Systemic) (SHEET METAL WORKER HELPER Depressants) Percocet (OxyCODONE) C Calcium Carbonate (Calcium Salts) HydroCHLOROthiazide (Thiazide and Thiazide -Like Diuretics) C DiphenhydrAMINE (Systemic) (Anticholinergic Agents) HydroCHLOROthiazide ( Thiazide and Thiazide-Like Diuretics) C HydroCHLOROthiazide (Diuretics) Percocet (Opioid Analgesics) Pneumococcal Vaccine HX Pneumo Vac ([id number]): Yes HX Pneumo Vac (Pneumovax): Yes Comments Regarding the Review Patient is up to date with her influenza and pneumococcal vaccines. Perform periodic electrolyte levels. Do not exceed 4 gm of acetaminophen per 24 hours. Review the need for Percocet and Ambien at least every 14 days. RADHA GARCIA Oct 21, 2017 11:22
[2017-10-21] MEDS ORDERED: BISACODYL 10 MG SUPP PR PRN (12:32)
--- NOTE | 2017-10-21 13:28 | Medical Nutrition Therapy ---
Nutrition Anthropometrics Height (Inches): 69 Weight (Pounds): 209 BMI: 31 Mitesh Nutrition Score: Mitesh Nutrition Risk Score: Dietary Referral Nutrition Risk Factors: Diff. Swallowing Nutrition Risk Comment: Sheduled for swallow study, fels like there is a mass in back of throat Physical Findings Physical Appearance: Obese BMI 30-39 Skin Appearance Skin Appearance: Edema Edema Location Modifier: Edema Location: Type of Edema: Degree of Edema: Gastrointestinal Symptoms GI Symtoms: Tube Present: Bowel Sounds: Recent Bowel Pattern: Stool Characteristics: Nutritional Diagnosis Nutritional Risk Acuity 2: Swallowing Problem Nutritional Risk Acuity 3: Fair Appetite, Nausea, Cancer (breast cancer) Past Medical History: breast cancer, multiple thyroid nodules, HTN, left hip fx Nutritional Acuity: 2-Moderate Nutrition Diagnosis: Increased Nutrient Needs, Inappropriate Carb Intake Nutrition Etiology: Physiological Causes Nutrition Problem/Etiology/Sym: Increase nutrient needs related to physiological causes as evidence by left hip fx. Inappropriate carb intake related to physiological causes as evidence by random blood glucose (183) Energy Requirement: 1615 ([place] Adj BMI > 27.5) Protein Requirement: 95 (1g/kg) Fluid Requirement: 2850 (30ml/kg < 75yrs) Diet Type: Diet as Tolerated FREIDA/REG Nutrition Intervention: Change diet Drug: Diuretics Nutrition Monitoring & Eval Nutrition Goals: Eat 50-100% Meal RD Patient Assessment Time: [address] Assessment Type: RD Assessment Patient Nutrition Acuity: 2-Moderate Follow Up Date: Oct 25, 2017 Nutritional Comment: 10/21 Pt transferred from [facility]ba/surg to [facility] for weakness. Pt was admitted last week for left hip fx. on med/surg (10/19) Pt had difficulty swallowing and was experiencing some nausea. Pt is on regular diet with no meal intake since floor transfer. Pt has low Na (133) and continues to have elevated random blood glucose (183). Pt may benefit from a controlled CHO diet, to help manage blood sugars. Will continue to monitor pt progress and encourage intake. -ARJUN MADSEN Oct 21, 2017 13:04
[2017-10-21 15:00] VITALS: BP 141/55
--- NOTE | 2017-10-21 16:34 | OT ECF NOTE ---
Type of Note: Initial Note Primary Medical Diagnosis: fall with L hip fracture with pinning Occupational Therapy Evaluation Date: 10/21/2017 SUBJECTIVE: Prior Hospitalization: 10/19/2017-10/21/2017 [facility] acute Prior Level of Function: independent Prior Living Status: Single level house Spouse Living with family Assist by family Community Services: Independent Home Accessibility: Stairs with rails Equipment Owned: Medical Complications/Past Medical History: HTN, reflux, UTIs arthritis, CAD Psychosocial Support: spouse and daughter Pain Scale (0-10): 5 Hand Dominance: right OBJECTIVE: Strength: MMT: Right Left Shoulder Flexion WNL WNL Elbow Flexion WNL WNL Wrist Extension WNL WNL Rn Advice WNL WNL (5= normal, 4= good, 3= fair, 2= poor, 1= trace) ROM: Both upper extremities WFL Sensation: intact Functional Transfer: Assistive Device: None Transfer Ability: 2-person assist CGA ADL: Upper body dressing: Assistive device: Upper body dressing ability: SBA Lower body dressing: Assistive device: Lower body dressing ability: Moderate assistance Maximum assistance Toileting: Assistive device: Bedside Commode Toileting ability: Moderate assistance Grooming/hygiene: Assistive device: Grooming ability: Bathing: Assistive device: Bathing ability: Standardized Assessment: Alina Index of Activities of Daily Living ASSESSMENT: Patient is moving better with her transfers. Needs extra time and rest breaks. V/C needed for using the walker safely. Patient needs assist with LB dressing and toileting. Patient to benefit from OT services to increase independence with self cares. Problem List/Current Limitations: Decreased strength Decreased balance Short Term Goals: 1. Patient will be SBA-mod I with LB dressing. 2. Patient will be SBA with grooming and hygiene at sinkfront 3. Patient will be SBA with toileting 4. Patient will increase score on Alina Index by 2 points Care Home Goals: return back home with spouse Patient Goals: return back to her normal ADLs Rehabilitation Prognosis: Good Barriers to Discharge: none PLAN: The patient will benefit from skilled occupational therapy services 5 times per week for 2 weeks including: ADL training, Adaptive equipment training Thank you for this referral. If you have any questions, concerns, or comments about this report or plan, please contact me at . Roseann Ba MS, OTR/Joseph MILLER
[2017-10-21] MEDS: RANITIDINE HCL 150 MG TAB PO SCH (21:35)
--- NOTE | 2017-10-22 06:47 | ECF H&P BLANK ---
[facility] H&P UPDATE History of Present Illness Chief Complaint Fall/hip pain History of Present Illness 72yo female with PMHx significant for HTN, breast cancer. She reports tripping over a cord and falling to the ground on her driveway. She had significant pain and was unable to arise. She was transported via EMS to [facility] ER. She denies any symptoms preceding her fall - No CP/SOB/palpitations/weakness/dizziness. She was found to have left hip fracture. She has been admitted for surgical repair. She has no history of heart or lung disease. She has no history of bleeding or clotting problems. She has tolerated anesthesia without problems. History Problems: (1) Hypertension Status: Acute (2) Breast cancer, left Status: Chronic Comment: lumpectomy followed by radiation (3) Dysphagia Status: Resolved (4) GERD (gastroesophageal reflux disease) Status: Chronic (5) Multinodular goiter (nontoxic) Status: Chronic (6) Hip fracture, left Status: Acute Home Meds Active Scripts Ranitidine Hcl (RANITIDINE HCL) 150 Mg Capsule, 1 CAP PO QHS, #60 CAPSULE Prov:GIOVANNA JACOBS MD 10/18/17 Oxybutynin Chloride (OXYBUTYNIN CHLORIDE ER) 10 Mg Tab.er.24, 1 TAB PO QDAY, # 90 TAB.SR 1 Refill Prov:RODRÍGUEZ BURROWS MD 08/29/17 Valacyclovir Hcl (VALACYCLOVIR) 500 Mg Tablet, 500 MG PO BID for 3 Days, #6 TAB 4 Refills Prov:RODRÍGUEZ BURROWS MD 06/29/17 Fluticasone Propionate (Fluticasone Propionate) 50 Mcg/Actuation [place].susp, 2 SPRAY NA DAILY for 30 Days, #1 BOTTLE 4 Refills Prov:RODRÍGUEZ BURROWS MD 06/29/17 Lisinopril/Hydrochlorothiazide (LISINOPRIL-HCTZ 20-12.5 MG TAB) 1 Each Tablet, 1 EACH PO DAILY for 90 Days, #90 TAB 4 Refills Prov:RODRÍGUEZ BURROWS MD 04/20/17 Reported Medications Anastrozole (ANASTROZOLE) 1 Mg Tablet, 1 MG PO DAILY 08/31/17 Cholecalciferol (Vitamin D3) (VITAMIN D-3) 2,000 Unit Capsule, 2000 UNIT PO, CAPSULE 08/31/17 Calcium Carbonate (CALCIUM) 500 Mg Tablet, 1000 MG PO DAILY 08/31/17 Multivits-Min/Iron/FA/Lutein (Centrum Silver Women Tablet) 1 Each Tablet, 1 TAB PO DAILY 06/29/17 Ibuprofen (IBUPROFEN) 200 Mg Tablet, 2 TAB PO PRN, TAB 04/20/17 Ubidecarenone (Co Enzyme Q10) 50 Mg Capsule, 200 MG PO DAILY, 0 Refills 05/13/10 Aspirin (Aspirin Ec) 81 Mg Tablet.dr, 81 MG PO DAILY 05/13/10 Discontinued Reported Medications Omeprazole (OMEPRAZOLE) 40 Mg Capsule.dr, 1 CAP PO QDAY, CAP 09/27/17 Allergies: Coded Allergies: amlodipine (Verified Allergy, Unknown, 02/27/17) EHR CONVERSION alendronate sodium (Unverified Adverse Reaction, Intermediate, 11/09/14) DENTAL PAIN Patient History: FH: heart disease FATHER, , Age:89 FH: hypertension MOTHER, , Age:98 Hx Smoking: Yes (QUIT 1998) Smoking Status: Former Smoker Caffeine/Cups Per Day: OCC Hx Alcohol Use: Yes Hx Substance Use Disorder: No Social Drug Use: Never Review of Systems Constitutional: No Fever, No Chills Neurological: No Syncope, No Confusion, No Weakness, No Dizziness Eyes: No Vision Change, No Loss of Vision Cardiovascular: No Chest Pain, No Palpitations, No Orthostatic Hypotension Respiratory: No Shortness of Breath, No Cough, No Wheezing Gastrointestinal: No Nausea, No Vomiting, No Diarrhea, No Hematemesis, No Hematochezia, No Melena Genitourinary: No Dysuria, No Hematuria, No Urinary Incontinence Musculoskeletal: Pain (acute) Psychiatric: No Depression Exam Vital Signs Vital Signs Date Time Temp Pulse Resp B/P (MAP) Pulse Ox O2 Delivery O2 Flow Rate FiO2 10/18/17 16:49 97.5 62 16 158/88 (111) 90 Room Air General Appearance: Alert, Awake Neuro: Other (no focal deficits noted - lower extremities not fully tested due to fracture/sensory grossly intact) Eyes: PERRLA ENT: Oropharynx Clear Neck: No Masses Cardiovascular: Regular Rate and Rhythm, No Edema, No JVD Respiratory: Clear to Auscultation Chest: No Tenderness GI: Abd Soft and Non-Tender : No CVA Tenderness Lymph: No Adenopathy Extremities: Warm, Pulses (pedal pulses normal), Perfused Integumentary: Skin Intact without Lesion / Mass Psych: Alert & Oriented X3 Medical Decision Making Data Points Result Diagram: 10/18/17 1449 10/18/17 1449 Item Value Date Time Albumin 3.9 g/dl 10/18/17 1449 Total Protein 6.5 g/dl 10/18/17 1449 Alkaline Phosphatase 83 U/L 10/18/17 1449 Alanine Aminotransferase (ALT/SGPT) 41 U/L 10/18/17 1449 Aspartate Amino Transf (AST/SGOT) 25 U/L 10/18/17 1449 Total Bilirubin 0.6 mg/dl 10/18/17 1449 Calcium Level 9.3 mg/dl 10/18/17 1449 EKG / Imaging EKG Interpretation PATIENT NAME: JIMENA WILLINGHAM : [id number] MR: [id number] V: [id number] EXAM DATE: ORDERING PHYSICIAN: JACKI DUMONT TECHNOLOGIST: WH Test Reason : PRE-OP Blood Pressure : / mmHG Vent. Rate : 051 BPM Atrial Rate : 051 BPM P-R Int : 186 ms QRS Dur : 078 ms QT Int : 442 ms P-R-T Axes : 045 040 055 degrees QTc Int : 407 ms Sinus bradycardia Hint of delta wave in limb leads No acute appearing findings Confirmed by OUMAR KERN ([id number]) on 10/18/2017 4:01:25 PM Referred By: JULIA Confirmed By:OUMAR KERN Imaging PATIENT NAME: Jimena Willingham : 1945 MR: [id number] V: [id number] EXAM DATE: [id number] ORDERING PHYSICIAN: JACKI DUMONT TECHNOLOGIST: Location: [facility] Patient: Jimena Willingham : 1945 Visit/Account:[id number] Date of Sevice: 10/18/2017 HIP LEFT HISTORY: Fall with pain ADDITIONAL HISTORY: None. COMPARISON: None. FINDINGS: AP view the pelvis and coned-down AP and crosstable lateral views were obtained of the left hip. There is a minimally displaced left basicervical fracture of the left hip. Approximately 1 to 2 mm of anterolateral displacement of the distal fracture fragment noted. Femoral head remains in articulation with the acetabulum. Hip joint space is well-maintained. Pelvic ring is intact. Symphysis and SI joints are of normal caliber. No right hip fracture. There is mild narrowing of the right hip joint space. Bones are osteopenic. Multiple radiopaque objects seen overlying the pelvis IMPRESSION: 1. Minimally displaced basicervical fracture of the left femoral neck. 2. No pelvic ring fracture. 3. Degenerative changes present in the right hip. Report Dictated By: Qiana Carranza MD at 10/18/2017 3:08 PM Report E-Signed By: Qiana Carranza MD at 10/18/2017 3:14 PM [id number] PATIENT NAME: Jimena Willingham : 1945 MR: [id number] V: [id number] EXAM DATE: ORDERING PHYSICIAN: JACKI DUMONT TECHNOLOGIST: Location: [facility] Patient: Jimena Willingham : 1945 Visit/Account:[id number] Date of Sevice: 10/18/2017 Chest single view: HISTORY: Fall with left hip pain. COMPARISON: 11/09/2014 FINDINGS: Portable chest 1344 hours: Heart appears enlarged but may reflect patient positioning. There is no infiltrate or pleural effusion. No pneumothorax. Pulmonary vasculature is normal. Surgical clips noted in the left breast. IMPRESSION: Mild cardiomegaly, this may be accentuated by positioning. There is no evidence of acute cardiopulmonary normality otherwise. Report Dictated By: Qiana Carranza MD at 10/18/2017 3:21 PM Report E-Signed By: Qiana Carranza MD at 10/18/2017 3:25 PM WSN:[id number] Assessment and Plan Problems: (1) Hip fracture, left Status: Acute Assessment & Plan: Orthopedics (Dr. Cervantes) has seen her and plans surgical repair. She will be at slight increased risk due to age >70. No obvious contraindications to surgery. Will start Lovenox tonight for DVT prophylaxis and hold in AM for planned surgery in the afternoon tomorrow. (2) Breast cancer, left Status: Chronic Assessment & Plan: Lumpectomy followed by radiation. Will continue her anastrozole therapy. (3) Hypertension Status: Acute Assessment & Plan: Will monitor her BPs and resume her lisinopril and HCTZ as needed. (4) GERD (gastroesophageal reflux disease) Status: Chronic Assessment & Plan: Continue ranitidine. Copies to: RODRÍGUEZ BURROWS MD Venous Thromboembolism Antithrombotics Is Pt On Any Antithrombotics?: Yes Exam Sepsis Risk: No Definite Risk Problem Qualifiers (1) Hip fracture, left: Encounter type: initial encounter Fracture type: closed Qualified Codes: S72.002A - Fracture of unspecified part of neck of left femur, initial encounter for closed fracture OUMAR KERN MD Oct 18, 2017 18:41 <Electronically signed by OUMAR KERN MD> D/ 49 40 40 [facility] CC: RODRÍGUEZ BURROWS MD The above acute care issues are resolving and/or stable. Patient requires prison and/or skilled rehabilitation and is ready for admission to Extended Care. Any change in condition is described below. GIOVANNA DASILVA DO Oct 22, 2017 06:47
[2017-10-22 08:00] VITALS: BP 157/68
[2017-10-22] MEDS: HYDROCHLOROTHIAZIDE 25 MG TAB PO SCH (08:35)
[2017-10-22] MEDS: LISINOPRIL 20 MG TAB PO SCH (08:36)
[2017-10-22] MEDS: RANITIDINE HCL 150 MG TAB PO SCH ×2 (08:36→21:28)
[2017-10-22] MEDS: ANASTROZOLE 1 MG TAB PO SCH (08:36)
[2017-10-22] MEDS: CALCIUM OYSTER SHELL 500MG TAB PO SCH (08:36)
[2017-10-22] MEDS: ENOXAPARIN 40 MG/0.4ML SYR SC SCH (08:37)
[2017-10-22 15:30] VITALS: BP 157/74
[2017-10-23 08:05] VITALS: BP 161/85
[2017-10-23] MEDS: CALCIUM OYSTER SHELL 500MG TAB PO SCH (08:28)
[2017-10-23] MEDS: RANITIDINE HCL 150 MG TAB PO SCH ×2 (08:28→20:26)
[2017-10-23] MEDS: ENOXAPARIN 40 MG/0.4ML SYR SC SCH (08:28)
[2017-10-23] MEDS: LISINOPRIL 20 MG TAB PO SCH (08:28)
[2017-10-23] MEDS: HYDROCHLOROTHIAZIDE 25 MG TAB PO SCH (08:29)
[2017-10-23] MEDS: ANASTROZOLE 1 MG TAB PO SCH (10:04)
[2017-10-23 16:08] VITALS: BP 190/90
--- NOTE | 2017-10-23 21:55 | PT ECF NOTE ---
Type of Note: Initial Note Primary Medical Diagnosis: fall with L) hip fracture with ORIF Physical Therapy Evaluation Date: 10/21/2017 SUBJECTIVE: Prior Hospitalization: 10/18/2017-10/21/2017 [facility] acute Prior Level of Function: independent Prior Living Status: Single level house, Spouse, Living with family, Assist by family Community Services: Independent Home Accessibility: Stairs with rails Equipment Owned: [facility] Medical Complications/Past Medical History: HTN, reflux, UTIs arthritis, CAD Psychosocial Support: spouse and daughter Pain Scale (0-10): 5 OBJECTIVE: Strength: L) LE not formally tested due to pain; functional mobility indicates 3-/5 for hip mobility and knee extension. 3+/5 for df/pf ROM: (please note any abnormalities) Pt demos decreased ROM at L) Hip related to pain Sensation: (please note any abnormalities) No paresthesias reported Other Neuro findings: n/a Bed Mobility: Not tested at time of eval; previous notes indicated Min/Mod assist Assistive device: Bed rail and head of bed raised Transfers: 2-person assist; CGA Assistive Device: Front wheeled walker Gait: Minimum assistance; 2-person assist; CGA Assistive device: Front wheeled walker Stairs: Not yet tested Assistive device: Timed Up and Go (>12 seconds indicated increased risk for falls): Pt unable to ambulate greater than 8' currently 10 meter walk test (0.6m/second cannot function independently): Unable to time ambulation, as CGA is required to ensure safety. Other Objective Measures: n/a ASSESSMENT: Pt demos difficulty with advancing L) LE forward during swing phase and pain during weight bearing with stance phase. Pt has demonstrated an improvement in distance of ambulation, completing 8' x 4 reps with three seated rest breaks during initial therapy visit. Pt would benefit from further rehab to improve strength, balance and weight bearing strategies to allow for more functional ambulation speed and distance. Pt is currently allowed 80% weight bearing, but appears to be placing less than 30% on the L) LE currently. Problem List/Current Limitations: Pain, Decreased WB, Decreased activity marisa , Decreased strength, Decreased ROM, Decreased balance Generalized weakness Short Term Goals: 1. Pt to ambulate 100' with Modified indep and least restrictive device with 80% weight bearing 2. Pt to be modified indep with all bed mobility and supine to/from sit transfers 3. Pt to be modified indep with sit to/from stand transfers from a variety of surfaces. 4. Pt to complete platform step to simulate curb in environment with SBA/ CGA and least restrictive device for off loading to ensure only 80% wt bearing. Utility Appraiser Goals: Pt to discharge home with adequate care to support 80% weight bearing during ADL's. Patient Goals: To return home with family Rehabilitation Prognosis: Good Barriers for Discharge: Pt unable to bear prescribed weight of 80% on L) LE for functional mobility at this time. Pt requires increased assistance for basic ADL's. Pt unable to ambulate functional household distances. PLAN: The patient will benefit from skilled physical therapy services 5 times per week for 2 weeks including: Therapeutic Exercise, Therapeutic Activities Transfer Training, Gait Training, Stair Training, ADL's, Safety Training, Pt/ Caregiver Training, Bed Mobility Thank you for this referral. If you have any questions, concerns, or comments about this report or plan, please contact me at . h. Denice Owen, PT, MPT MTDD
[2017-10-24 07:30] VITALS: BP 195/85
[2017-10-24] MEDS: RANITIDINE HCL 150 MG TAB PO SCH ×2 (08:36→20:31)
[2017-10-24] MEDS: CALCIUM OYSTER SHELL 500MG TAB PO SCH (08:36)
[2017-10-24] MEDS: HYDROCHLOROTHIAZIDE 25 MG TAB PO SCH (08:38)
[2017-10-24] MEDS: ANASTROZOLE 1 MG TAB PO SCH (08:38)
[2017-10-24] MEDS: ENOXAPARIN 40 MG/0.4ML SYR SC SCH (08:38)
[2017-10-24] MEDS: LISINOPRIL 20 MG TAB PO SCH (08:38)
--- NOTE | 2017-10-24 15:26 | Medical Nutrition Therapy ---
Nutrition Anthropometrics Height (Inches): 69.00 Height (Calculated Centimeters: 175.775356 Weight (Pounds): 208 Weight (Calculated Kilograms): 94.347 BMI: 31 Mitesh Nutrition Score: Probably Inadequate Mitesh Nutrition Risk Score: 16 Dietary Referral Nutrition Risk Factors: Diff. Swallowing Nutrition Risk Comment: Sheduled for swallow study, fels like there is a mass in back of throat Physical Findings Physical Appearance: Obese BMI 30-39 Skin Appearance Skin Appearance: Edema Edema Location Modifier: Left Edema Location: Lower Extremity Type of Edema: Degree of Edema: Gastrointestinal Symptoms GI Symtoms: Constipation Tube Present: Bowel Sounds: Recent Bowel Pattern: Constipated Stool Characteristics: Nutritional Diagnosis Nutritional Risk Acuity 3: Fair Appetite, Nausea, Cancer (breast cancer) Past Medical History: breast cancer, multiple thyroid nodules, HTN, left hip fx Nutritional Acuity: 3-Mild Nutrition Diagnosis: Increased Nutrient Needs, Inappropriate Carb Intake Nutrition Etiology: Physiological Causes Nutrition Problem/Etiology/Sym: Increase nutrient needs related to physiological causes as evidence by left hip fx. Inappropriate carb intake related to physiological causes as evidence by random blood glucose (183) Energy Requirement: 1615 ([place] Adj BMI > 27.5) Protein Requirement: 95 (1g/kg) Fluid Requirement: 2850 (30ml/kg < 75yrs) Diet Type: Diet as Tolerated FREIDA/REG Nutrition Intervention: Change diet Drug: Diuretics Nutrition Monitoring & Eval Nutrition Goals: Eat 50-100% Meal RD Patient Assessment Time: [address] Assessment Type: RD Re-Assessment Patient Nutrition Acuity: 3-Mild Follow Up Date: Nov 01, 2017 Nutritional Comment: 10/21 Pt transferred from beba/surg to [facility] for weakness. Pt was admitted last week for left hip fx. on med/surg (10/19) Pt had difficulty swallowing and was experiencing some nausea. Pt is on regular diet with no meal intake since floor transfer. Pt has low Na (133) and continues to have elevated random blood glucose (183). Pt may benefit from a controlled CHO diet, to help manage blood sugars. Will continue to monitor pt progress and encourage intake. -MT 10/24 Pt continues on regular diet consuming 50% to 100% of her meals. Pt's dysphagia has been resolved. Pt continues to have elevated whole blood sugars (182). Pt has elevated blood pressure (190/90). Pt may benefit from both carb and sodium controlled diet. Pt is working with PT and OT for strength. Will continue to monitor pt progress, labs and encourage intake. -ARJUN MADSEN Oct 24, 2017 08:45
[2017-10-24 16:35] VITALS: BP 197/104
[2017-10-24 16:40] VITALS: BP 201/109
[2017-10-24 20:20] VITALS: BP 171/101
[2017-10-25 07:20] VITALS: BP 151/83
--- NOTE | 2017-10-25 09:23 | ECF H&P BLANK ---
ECF H&P UPDATE Patient is known to technical writer and is seen for geriatric consultation. Ms. Silver is a 72yo in the ECF for post femur fx pinning. #Osteoporosis s/p fx after fall from standing height-patient has not tolerated bisphosphonates in the past due to "dental pain". She is extremely reluctant to try probably because of her experience with other osteoporosis medication. We will continue this discussion outpatient. #Hypertension-blood pressure remains slightly elevated. Patient is on lisinopril 20 mg and HCTZ 12.5 mg. Recommend increase of HCTZ to 25 mg. #Hyperglycemia-fasting blood sugars have been in the low 200s, patient is working on dietary changes and currently eating high protein and low carbohydrate meals. She is avoiding sugar. We will continue to monitor and encourage diabetic diet. No medications at this time. We will check A1c with next blood work. #Constipation-patient has not had a bowel movement in 3 days. Would recommend use of when necessary milk of mag as had good results with this during hospitalization. Would recommend scheduling MiraLAX daily thereafter. # Pain control-patient develops hypoxia with percocet, continue O2 and use IS, frequent ambulation, would recommend scheduling acetaminophen at 3-4g/day and potentially splitting out the oxycodone and taper use as able. Set expectations today. #Care conference meeting today-patient expects to go home with after acute rehab. No stairs in house needed. #FU with PCP outpatient is scheduled for 11/24 Copies to: RADHA KERN MD, EMMA M MD Oct 25, 2017 09:23
[2017-10-25] MEDS: LISINOPRIL 20 MG TAB PO SCH (09:29)
[2017-10-25] MEDS: ENOXAPARIN 40 MG/0.4ML SYR SC SCH (09:30)
[2017-10-25] MEDS: ANASTROZOLE 1 MG TAB PO SCH (09:30)
[2017-10-25] MEDS: HYDROCHLOROTHIAZIDE 25 MG TAB PO SCH (09:30)
[2017-10-25] MEDS: CALCIUM OYSTER SHELL 500MG TAB PO SCH (09:30)
[2017-10-25] MEDS: RANITIDINE HCL 150 MG TAB PO SCH ×2 (09:30→20:33)
[2017-10-25 15:20] VITALS: BP 194/85
[2017-10-26 08:10] VITALS: BP 148/80
[2017-10-26] MEDS: ANASTROZOLE 1 MG TAB PO SCH (09:19)
[2017-10-26] MEDS: HYDROCHLOROTHIAZIDE 25 MG TAB PO SCH (09:19)
[2017-10-26] MEDS: CALCIUM OYSTER SHELL 500MG TAB PO SCH (09:19)
[2017-10-26] MEDS: RANITIDINE HCL 150 MG TAB PO SCH ×2 (09:19→20:20)
[2017-10-26] MEDS: LISINOPRIL 20 MG TAB PO SCH (09:19)
[2017-10-26] MEDS: ENOXAPARIN 40 MG/0.4ML SYR SC SCH ×2 (09:20→10:25)
--- NOTE | 2017-10-26 15:46 | Hospitalist Progress Note ---
Subjective Progress Notes Subjective The patient denies new complaints. She has been having BMs and is feeling better. Her BS have improved with a diabetic diet. Her BP remains a bit elevated at times. Physical Exam Vital Signs Date Time Temp Pulse Resp B/P (MAP) Pulse Ox O2 Delivery O2 Flow Rate FiO2 10/26/17 14:07 97 Room Air 10/26/17 08:10 97.9 76 20 148/80 (102) 0.5 Intake and Output 10/27/17 07:00 Intake Total 440 ml Balance 440 ml Intake Oral 440 ml # Voids 4 # Bowel Movements 1 General Appearance: Alert, Awake, No Acute Distress Eyes: PERRLA Cardiovascular: Regular Rate and Rhythm Respiratory: Clear to Auscultation GI: Soft and Non-Tender Extremities: Warm, Perfused Psych: Appropriate Mood & Affect Assessment and Plan Problems: (1) Hip fracture, left Status: Acute Assessment & Plan: S/P pinning. The patient is on Lovenox for DVT prevention. She is working with PT and OT on ECF. Will start weaning pain medication a bit due to some constipation and respiratory depression with 2 Percocet at once. Will schedule Tylenol q 6 hours with oxycodone 1-2 q 6 hours prn in between. (2) Hypertension Status: Acute Assessment & Plan: Will increase her HCTZ to 25mg daily due to some high BP readings. Continue lisinopril. (3) GERD (gastroesophageal reflux disease) Status: Chronic Assessment & Plan: Continue ranitidine. (4) Elevated glucose Status: Acute Assessment & Plan: BS improved on diabetic diet. Will continue to follow sugars. Dr. Tracy plans to due A1c at the patient's next OP appointment. (5) Breast cancer, left Status: Chronic Assessment & Plan: Continue Arimidex. Time Spent on Plan of Care: < 30 min RADHA KERN MD Oct 26, 2017 15:46
[2017-10-26 16:40] VITALS: BP 172/85
[2017-10-26] MEDS: oxyCODONE HCL 5 MG CAP PO PRN (20:40)
[2017-10-27] MEDS: oxyCODONE HCL 5 MG CAP PO PRN ×3 (03:05→20:50)
[2017-10-27 07:20] VITALS: BP 172/77
[2017-10-27] MEDS: HYDROCHLOROTHIAZIDE 25 MG TAB PO SCH (08:51)
[2017-10-27] MEDS: CALCIUM OYSTER SHELL 500MG TAB PO SCH (08:51)
[2017-10-27] MEDS: RANITIDINE HCL 150 MG TAB PO SCH ×2 (08:51→20:19)
[2017-10-27] MEDS: POLYETHYLENE GLYCOL 17 GM PKT PO SCH (08:51)
[2017-10-27] MEDS: ENOXAPARIN 40 MG/0.4ML SYR SC SCH (08:51)
[2017-10-27] MEDS: ANASTROZOLE 1 MG TAB PO SCH (08:52)
[2017-10-27] MEDS: LISINOPRIL 20 MG TAB PO SCH (08:52)
[2017-10-27] MEDS: ACETAMINOPHEN 325 MG TAB PO PRN (13:51)
[2017-10-27 16:35] VITALS: BP 179/94
--- NOTE | 2017-10-27 16:51 | RADIOLOGY IMAGING REPORT ---
[place] [facility] [place] Jimena Silver : 1945 MR: [id number] V: [id number] EXAM DATE: ORDERING PHYSICIAN: GIOVANNA JACOBS TECHNOLOGIST: Location: [facility] Patient: Jimena Silver : 1945 Visit/Account:[id number] Date of Sevice: 10/26/2017 Exam type: ESOPH VIDEO SWALLOWING History: Dysphagia Comparison: None. Findings: The modified barium swallow was performed by the speech pathologist. The patient received thin bariu m, a barium tablet and various food substances. There is possible esophageal dysphasia with a barium tablet. Please see the speech pathologist report for complete details. The fluoroscopy dose area p roduct was 592.77 micro-Wilkes per meter square IMPRESSION: 1. As above Report Dictated By: Michell Killian MD at 10/27/2017 4:33 PM Report E-Signed By: Michell Killian MD at 10/27/2017 4:48 PM WSN:[id number]
[2017-10-28] MEDS: ACETAMINOPHEN 325 MG TAB PO PRN ×3 (01:02→20:49)
[2017-10-28] MEDS: oxyCODONE HCL 5 MG CAP PO PRN ×2 (05:57→12:46)
[2017-10-28 08:30] VITALS: BP 153/84
[2017-10-28] MEDS: ENOXAPARIN 40 MG/0.4ML SYR SC SCH (08:52)
[2017-10-28] MEDS: CALCIUM OYSTER SHELL 500MG TAB PO SCH (08:52)
[2017-10-28] MEDS: LISINOPRIL 20 MG TAB PO SCH (08:52)
[2017-10-28] MEDS: HYDROCHLOROTHIAZIDE 25 MG TAB PO SCH (08:52)
[2017-10-28] MEDS: POLYETHYLENE GLYCOL 17 GM PKT PO SCH (08:52)
[2017-10-28] MEDS: RANITIDINE HCL 150 MG TAB PO SCH ×2 (08:52→20:47)
[2017-10-28] MEDS: ANASTROZOLE 1 MG TAB PO SCH (08:52)
[2017-10-28 16:15] VITALS: BP 177/75
[2017-10-29] MEDS: oxyCODONE HCL 5 MG CAP PO PRN ×3 (01:05→19:11)
[2017-10-29] MEDS: ACETAMINOPHEN 325 MG TAB PO PRN ×2 (06:07→13:44)
[2017-10-29 08:35] VITALS: BP 157/81
[2017-10-29] MEDS: POLYETHYLENE GLYCOL 17 GM PKT PO SCH (09:35)
[2017-10-29] MEDS: ANASTROZOLE 1 MG TAB PO SCH (09:36)
[2017-10-29] MEDS: RANITIDINE HCL 150 MG TAB PO SCH ×2 (09:36→21:25)
[2017-10-29] MEDS: LISINOPRIL 20 MG TAB PO SCH (09:36)
[2017-10-29] MEDS: HYDROCHLOROTHIAZIDE 25 MG TAB PO SCH (09:36)
[2017-10-29] MEDS: CALCIUM OYSTER SHELL 500MG TAB PO SCH (09:36)
[2017-10-29] MEDS: ENOXAPARIN 40 MG/0.4ML SYR SC SCH (09:36)
[2017-10-29] MEDS: ZINC SULFATE 220 MG CAP PO SCH (13:23)
[2017-10-29 17:10] VITALS: BP 158/86
[2017-10-30] MEDS: ACETAMINOPHEN 325 MG TAB PO PRN ×3 (04:11→22:31)
[2017-10-30] MEDS: oxyCODONE HCL 5 MG CAP PO PRN ×3 (06:36→19:52)
[2017-10-30 07:30] VITALS: BP 160/82
[2017-10-30] MEDS: CALCIUM OYSTER SHELL 500MG TAB PO SCH (08:39)
[2017-10-30] MEDS: POLYETHYLENE GLYCOL 17 GM PKT PO SCH (08:39)
[2017-10-30] MEDS: RANITIDINE HCL 150 MG TAB PO SCH ×2 (08:39→21:15)
[2017-10-30] MEDS: ZINC SULFATE 220 MG CAP PO SCH (08:39)
[2017-10-30] MEDS: LISINOPRIL 20 MG TAB PO SCH (08:39)
[2017-10-30] MEDS: HYDROCHLOROTHIAZIDE 25 MG TAB PO SCH (08:39)
[2017-10-30] MEDS: ANASTROZOLE 1 MG TAB PO SCH (08:39)
[2017-10-30] MEDS: ENOXAPARIN 40 MG/0.4ML SYR SC SCH (08:40)
[2017-10-30 16:15] VITALS: BP 171/91
[2017-10-31] MEDS: oxyCODONE HCL 5 MG CAP PO PRN ×3 (01:53→20:40)
[2017-10-31] MEDS: ACETAMINOPHEN 325 MG TAB PO PRN ×2 (07:23→15:53)
[2017-10-31 08:02] VITALS: BP 136/76
[2017-10-31] MEDS: RANITIDINE HCL 150 MG TAB PO SCH ×2 (08:47→20:40)
[2017-10-31] MEDS: ANASTROZOLE 1 MG TAB PO SCH (08:47)
[2017-10-31] MEDS: CALCIUM OYSTER SHELL 500MG TAB PO SCH (08:47)
[2017-10-31] MEDS: POLYETHYLENE GLYCOL 17 GM PKT PO SCH (08:47)
[2017-10-31] MEDS: HYDROCHLOROTHIAZIDE 25 MG TAB PO SCH (08:47)
[2017-10-31] MEDS: LISINOPRIL 20 MG TAB PO SCH (08:47)
[2017-10-31] MEDS: ZINC SULFATE 220 MG CAP PO SCH (08:47)
[2017-10-31] MEDS: ENOXAPARIN 40 MG/0.4ML SYR SC SCH (08:48)
--- NOTE | 2017-10-31 15:55 | Medical Nutrition Therapy ---
Nutrition Anthropometrics Height (Inches): 70.00 Height (Calculated Centimeters: 177.646526 Weight (Pounds): 200 Weight (Calculated Kilograms): 90.832 BMI: 31 Mitesh Nutrition Score: Adequate Mitesh Nutrition Risk Score: 18 Dietary Referral Nutrition Risk Factors: Diff. Swallowing Nutrition Risk Comment: Sheduled for swallow study, fels like there is a mass in back of throat Physical Findings Physical Appearance: Obese BMI 30-39 Skin Appearance Skin Appearance: Edema Edema Location Modifier: Both Edema Location: Lower Extremity Type of Edema: Degree of Edema: 1+ Gastrointestinal Symptoms GI Symtoms: Change in Bowel Pattern Tube Present: Bowel Sounds: Recent Bowel Pattern: Constipated Stool Characteristics: Nutritional Diagnosis Nutritional Risk Acuity 3: Fair Appetite, Nausea, Cancer (breast CA) Past Medical History: breast cancer, multiple thyroid nodules, HTN, left hip fx Nutritional Acuity: 3-Mild Nutrition Diagnosis: Increased Nutrient Needs, Inappropriate Carb Intake Nutrition Etiology: Physiological Causes Nutrition Problem/Etiology/Sym: Increase nutrient needs related to physiological causes as evidence by left hip fx. Inappropriate carb intake related to physiological causes as evidence by random blood glucose (183) Energy Requirement: 1615 ([place] Adj BMI > 27.5) Protein Requirement: 95 (1g/kg) Fluid Requirement: 2850 (30ml/kg < 75yrs) Diet Type: Diet as Tolerated FREIDA/REG Nutrition Intervention: Change diet Drug: Diuretics Nutrition Monitoring & Eval Nutrition Goals: Eat 90-100% Meal, Drink > 2 liters/day Nutrition Follow-Up: Good Intake RD Patient Assessment Time: [address] Assessment Type: RD Re-Assessment Patient Nutrition Acuity: 3-Mild Follow Up Date: Nov 08, 2017 Nutritional Comment: 10/21 Pt transferred from beba/surg to [facility] for weakness. Pt was admitted last week for left hip fx. on med/surg (10/19) Pt had difficulty swallowing and was experiencing some nausea. Pt is on regular diet with no meal intake since floor transfer. Pt has low Na (133) and continues to have elevated random blood glucose (183). Pt may benefit from a controlled CHO diet, to help manage blood sugars. Will continue to monitor pt progress and encourage intake. -MT 10/24 Pt continues on regular diet consuming 50% to 100% of her meals. Pt's dysphagia has been resolved. Pt continues to have elevated whole blood sugars (182). Pt has elevated blood pressure (190/90). Pt may benefit from both carb and sodium controlled diet. Pt is working with PT and OT for strength. Will continue to monitor pt progress, labs and encourage intake. -MT 10/31 Pt cont on regular diet with BG ranginging 170's- 230's. Recommend CHO controlled diet. Pt is on K+ depleting duiretic. Last K+ was 3.5 on 10/21. Intake average 94% past 3 days. Cont to monitor and encourage intake. CYRUS FRENCH Oct 31, 2017 15:55
[2017-10-31 16:05] VITALS: BP 154/79
[2017-11-01] MEDS: ACETAMINOPHEN 325 MG TAB PO PRN ×2 (01:18→08:47)
[2017-11-01] MEDS: oxyCODONE HCL 5 MG CAP PO PRN ×2 (06:01→20:17)
[2017-11-01 07:30] VITALS: BP 142/75
[2017-11-01] MEDS: CALCIUM OYSTER SHELL 500MG TAB PO SCH (08:46)
[2017-11-01] MEDS: ZINC SULFATE 220 MG CAP PO SCH (08:46)
[2017-11-01] MEDS: LISINOPRIL 20 MG TAB PO SCH (08:46)
[2017-11-01] MEDS: POLYETHYLENE GLYCOL 17 GM PKT PO SCH (08:46)
[2017-11-01] MEDS: ENOXAPARIN 40 MG/0.4ML SYR SC SCH (08:46)
[2017-11-01] MEDS: ANASTROZOLE 1 MG TAB PO SCH (08:47)
[2017-11-01] MEDS: HYDROCHLOROTHIAZIDE 25 MG TAB PO SCH (08:47)
[2017-11-01] MEDS: RANITIDINE HCL 150 MG TAB PO SCH ×2 (08:47→20:16)
--- NOTE | 2017-11-01 13:55 | Medical Nutrition Therapy ---
Nutrition Anthropometrics Height (Inches): 70.00 Height (Calculated Centimeters: 177.680808 Weight (Pounds): 194 Weight (Calculated Kilograms): 87.997 BMI: 31 Mitesh Nutrition Score: Adequate Mitesh Nutrition Risk Score: 18 Dietary Referral Nutrition Risk Factors: Diff. Swallowing Nutrition Risk Comment: Sheduled for swallow study, fels like there is a mass in back of throat Physical Findings Physical Appearance: Obese BMI 30-39 Skin Appearance Skin Appearance: Edema Edema Location Modifier: Both Edema Location: Lower Extremity Type of Edema: Degree of Edema: 1+ Gastrointestinal Symptoms GI Symtoms: Change in Bowel Pattern Tube Present: Bowel Sounds: Recent Bowel Pattern: Constipated Stool Characteristics: Nutritional Diagnosis Nutritional Risk Acuity 3: Fair Appetite, Nausea, Cancer (breast CA) Past Medical History: breast cancer, multiple thyroid nodules, HTN, left hip fx Nutritional Acuity: 3-Mild Nutrition Diagnosis: Increased Nutrient Needs, Inappropriate Carb Intake Nutrition Etiology: Physiological Causes Nutrition Problem/Etiology/Sym: Increase nutrient needs related to physiological causes as evidence by left hip fx. Inappropriate carb intake related to physiological causes as evidence by random blood glucose (183) Energy Requirement: 1615 ([place] Adj BMI > 27.5) Protein Requirement: 95 (1g/kg) Fluid Requirement: 2850 (30ml/kg < 75yrs) Diet Type: Diet as Tolerated FREIDA/REG Nutrition Intervention: Change diet Drug: Diuretics Additional Diet Restrictions: PT WOULD LIKE TO LIMIT CARBS- PLEASE HELP HER KEEP IT 60 GM OR LESS Nutrition Monitoring & Eval RD Patient Assessment Time: [address] Assessment Type: RD Re-Assessment Patient Nutrition Acuity: 3-Mild Follow Up Date: Nov 08, 2017 Nutritional Comment: 10/21 Pt transferred from beba/surg to [facility] for weakness. Pt was admitted last week for left hip fx. on med/surg (10/19) Pt had difficulty swallowing and was experiencing some nausea. Pt is on regular diet with no meal intake since floor transfer. Pt has low Na (133) and continues to have elevated random blood glucose (183). Pt may benefit from a controlled CHO diet, to help manage blood sugars. Will continue to monitor pt progress and encourage intake. -MT 10/24 Pt continues on regular diet consuming 50% to 100% of her meals. Pt's dysphagia has been resolved. Pt continues to have elevated whole blood sugars (182). Pt has elevated blood pressure (190/90). Pt may benefit from both carb and sodium controlled diet. Pt is working with PT and OT for strength. Will continue to monitor pt progress, labs and encourage intake. -MT 10/31 Pt cont on regular diet with BG ranginging 170's- 230's. Recommend CHO controlled diet. Pt is on K+ depleting duiretic. Last K+ was 3.5 on 10/21. Intake average 94% past 3 days. Cont to monitor and encourage intake. BK 11/01 Pt has no c/o of foods. However pt is concerned that her BG has been elevated. Pt is on regular diet. Pointe out the CHO count of food on menu. Will have RSA help pt keep CHO to 60gm or less. CYRUS BRUNO Nov 01, 2017 13:55
[2017-11-01 15:30] VITALS: BP 137/82
[2017-11-02] MEDS: ACETAMINOPHEN 325 MG TAB PO PRN ×2 (02:56→20:56)
[2017-11-02 07:35] VITALS: BP 153/67
[2017-11-02] MEDS: CALCIUM OYSTER SHELL 500MG TAB PO SCH (08:54)
[2017-11-02] MEDS: LISINOPRIL 20 MG TAB PO SCH (08:54)
[2017-11-02] MEDS: HYDROCHLOROTHIAZIDE 25 MG TAB PO SCH (08:54)
[2017-11-02] MEDS: ENOXAPARIN 40 MG/0.4ML SYR SC SCH (08:54)
[2017-11-02] MEDS: POLYETHYLENE GLYCOL 17 GM PKT PO SCH (08:54)
[2017-11-02] MEDS: RANITIDINE HCL 150 MG TAB PO SCH ×2 (08:54→20:49)
[2017-11-02] MEDS: ANASTROZOLE 1 MG TAB PO SCH (09:01)
[2017-11-02] MEDS: ZINC SULFATE 220 MG CAP PO SCH (09:01)
[2017-11-02] MEDS: oxyCODONE HCL 5 MG CAP PO PRN ×2 (09:01→15:13)
[2017-11-02 15:25] VITALS: BP 142/81
[2017-11-02] MEDS ORDERED: OXYC5TAB38 PO (16:28)
--- NOTE | 2017-11-02 16:51 | Hospitalist Depart ---
Discharge Summary Reason for Hosp/Final Diag: (1) Hip fracture, left Status: Acute Hospital Course & Plan: Repaired by Dr. Mcdonnell. The patient was on Lovenox for DVT prevention during her stay. She worked with PT and OT on ECF. Pain medication was weaned due to some constipation and respiratory depression with 2 Percocet at once and she did well. Scheduled Tylenol q 6 hours with oxycodone one tab q 6 hours prn in between worked well. She will follow up with Dr. Mcdonnell as scheduled later in October. (2) Hypertension Status: Acute Hospital Course & Plan: Blood pressures were elevated at times during her stay. Her HCTZ was increased to 25mg daily. Lisinopril was continued at 20mg daily. (3) GERD (gastroesophageal reflux disease) Status: Chronic Hospital Course & Plan: She was continued on ranitidine. (4) Elevated glucose Status: Acute Hospital Course & Plan: BS improved on a diabetic diet, however, remained elevated overall. Dr. Burrows plans to due A1c at the patient's next OP appointment per consultation note. (5) Breast cancer, left Status: Chronic Hospital Course & Plan: She was continued on Arimidex. Departure Weight (Pounds): 189 Weight (Ounces): 12.0 Item Value Date Time Whole Blood Glucose 156 mg/DL H 10/21/172146 Whole Blood Glucose 170 mg/DL H 10/22/17 0834 Whole Blood Glucose 212 mg/DL H 10/22/172147 Whole Blood Glucose 170 mg/DL H 10/23/17 0808 Whole Blood Glucose 218 mg/DL H 10/23/172022 Whole Blood Glucose 182 mg/DL H 10/24/17 0734 Whole Blood Glucose 284 mg/DL H 10/24/17 203 Whole Blood Glucose 204 mg/DL H 10/25/17 0734 Whole Blood Glucose 214 mg/DL H 10/25/17 203 Whole Blood Glucose 163 mg/DL H 10/26/17 0811 Whole Blood Glucose 305 mg/DL H 10/26/17 204 Whole Blood Glucose 199 mg/DL H 10/27/17 0752 Whole Blood Glucose 220 mg/DL H 10/27/17 205 Whole Blood Glucose 230 mg/DL H 10/28/17 0817 Whole Blood Glucose 232 mg/DL H 10/28/172026 Whole Blood Glucose 204 mg/DL H 10/29/17 0759 Whole Blood Glucose 196 mg/DL H 10/29/172053 Whole Blood Glucose 187 mg/DL H 10/30/17 0736 Whole Blood Glucose 176 mg/DL H 10/30/17 2112 Whole Blood Glucose 179 mg/DL H 10/31/17 0737 Whole Blood Glucose 169 mg/DL H 10/31/17 2044 Whole Blood Glucose 175 mg/DL H 11/01/17 0811 Whole Blood Glucose 257 mg/DL H 11/01/172014 Whole Blood Glucose 178 mg/DL H 11/02/17 0745 Condition: Improved Discharge: Home, Home Health PT/OT Follow Up For: PT For Surgical Rehab, OT For ADL's Time Spent: < 30 min Discharge Instructions Home Meds Active Scripts Lisinopril/Hydrochlorothiazide (LISINOPRIL-HCTZ 20-25 MG TAB) 1 Each Tablet, 1 TAB PO DAILY, #30 TAB 2 Refills Prov:RADHA KERN MD 11/02/17 Oxycodone Hcl (OXYCODONE HCL) 5 Mg Tablet, 5 MG PO Q6H Y for PAIN, #20 TAB Prov:RADHA KERN MD 11/02/17 Ranitidine Hcl (RANITIDINE HCL) 150 Mg Capsule, 1 CAP PO QHS, #60 CAPSULE Prov:GIOVANNA JACOBS MD 10/18/17 Oxybutynin Chloride (OXYBUTYNIN CHLORIDE ER) 10 Mg Tab.er.24, 1 TAB PO QDAY, # 90 TAB.SR 1 Refill Prov:NORIS BURROWS MD 08/29/17 Valacyclovir Hcl (VALACYCLOVIR) 500 Mg Tablet, 500 MG PO BID for 3 Days, #6 TAB 4 Refills Prov:NORIS BURROWS MD 06/29/17 Fluticasone Propionate (Fluticasone Propionate) 50 Mcg/Actuation [place].susp, 2 SPRAY NA DAILY for 30 Days, #1 BOTTLE 4 Refills Prov:NORIS BURROWS MD 06/29/17 Reported Medications Ubidecarenone (LIQSORB) 100 Mg/1 Ml Liquid, 100 MG PO QDAY 10/19/17 Anastrozole (ANASTROZOLE) 1 Mg Tablet, 1 MG PO DAILY 08/31/17 Cholecalciferol (Vitamin D3) (VITAMIN D-3) 2,000 Unit Capsule, 2000 UNIT PO, CAPSULE 08/31/17 Calcium Carbonate (CALCIUM) 500 Mg Tablet, 1000 MG PO DAILY 08/31/17 Multivits-Min/Iron/FA/Lutein (Centrum Silver Women Tablet) 1 Each Tablet, 1 TAB PO DAILY 06/29/17 Ibuprofen (IBUPROFEN) 200 Mg Tablet, 2 TAB PO PRN, TAB 04/20/17 Aspirin (Aspirin Ec) 81 Mg Tablet.dr, 81 MG PO DAILY 05/13/10 Discontinued Scripts Lisinopril/Hydrochlorothiazide (LISINOPRIL-HCTZ 20-12.5 MG TAB) 1 Each Tablet, 1 EACH PO DAILY for 90 Days, #90 TAB 4 Refills Prov:NORIS BURROWS MD 04/20/17 Follow up Referrals: Internal Medicine @ [facility]-Primary with Noris Burrows Md Orthopedics - In One Day @ [facility] with Lucy Mcdonnell Md Diet: Diabetic Activity: As Tolerated Special Instructions: F/U with Dr. Mcdonnell on November 23, 2017 at 10:00 am Follow up with Dr. Burrows on November 24 at 1:20 pm Copies to: NORIS BURROWS MD; LUCY MCDONNELL MD [facility] Certification Face to Face Home Health Certification Institutional Provider conducted the [id number] encounter. Electronic Undersigning Physician Certifies Home Health. I certify that the patient has been under my care and that I had a [id number] encounter that meets the physician [id number] encounter requirements with this patient. This patient is home-bound due to safety issues and continues to require assistance with ADL's. I certify that based on my findings, that Nursing, Aides and the following Home Health services are medically necessary: PT and OT Medical Necessity: Nursing, Rehab Date Face to Face Conducted: Nov 02, 2017 RADHA KERN MD Nov 02, 2017 16:51
[2017-11-02] MEDS ORDERED: LISI-355 PO (16:56)
--- NOTE | 2017-11-02 17:05 | Hospitalist Progress Note ---
Subjective Progress Notes Subjective Doing well. Going home on Tuesday. Physical Exam Vital Signs Date Time Temp Pulse Resp B/P (MAP) Pulse Ox O2 Delivery O2 Flow Rate FiO2 11/02/17 15:25 97.0 84 20 142/81 (101) 91 Room Air Intake and Output 11/03/17 07:00 # Voids 2 General Appearance: Alert, Awake, No Acute Distress Eyes: PERRLA Cardiovascular: Regular Rate and Rhythm Respiratory: Clear to Auscultation GI: Soft and Non-Tender Extremities: Warm, Perfused Psych: Appropriate Mood & Affect Assessment and Plan Problems: (1) Hip fracture, left Status: Acute Assessment & Plan: Repaired by Dr. Cervantes. The patient was on Lovenox for DVT prevention during her stay. She worked with PT and OT on ECF. Pain medication was weaned due to some constipation and respiratory depression with 2 Percocet at once and she did well. Scheduled Tylenol q 6 hours with oxycodone one tab q 6 hours prn in between worked well. She will follow up with Dr. Cervantes as scheduled later in October. (2) Hypertension Status: Acute Assessment & Plan: Blood pressures were elevated at times during her stay. Her HCTZ was increased to 25mg daily. Lisinopril was continued at 20mg daily. (3) GERD (gastroesophageal reflux disease) Status: Chronic Assessment & Plan: She was continued on ranitidine. (4) Elevated glucose Status: Acute Assessment & Plan: BS improved on a diabetic diet, however, remained elevated overall. Dr. Tracy plans to due A1c at the patient's next OP appointment per consultation note. (5) Breast cancer, left Status: Chronic Assessment & Plan: She was continued on Arimidex. Time Spent on Plan of Care: < 30 min RADHA KERN MD Nov 02, 2017 17:05
[2017-11-03] MEDS: oxyCODONE HCL 5 MG CAP PO PRN ×2 (07:24→20:18)
[2017-11-03 07:25] VITALS: BP 140/64
[2017-11-03] MEDS: LISINOPRIL 20 MG TAB PO SCH (09:20)
[2017-11-03] MEDS: HYDROCHLOROTHIAZIDE 25 MG TAB PO SCH (09:20)
[2017-11-03] MEDS: CALCIUM OYSTER SHELL 500MG TAB PO SCH (09:20)
[2017-11-03] MEDS: RANITIDINE HCL 150 MG TAB PO SCH ×2 (09:20→20:18)
[2017-11-03] MEDS: ENOXAPARIN 40 MG/0.4ML SYR SC SCH (09:20)
[2017-11-03] MEDS: ZINC SULFATE 220 MG CAP PO SCH (09:20)
[2017-11-03] MEDS: ANASTROZOLE 1 MG TAB PO SCH (09:20)
[2017-11-03] MEDS: POLYETHYLENE GLYCOL 17 GM PKT PO SCH (09:21)
--- NOTE | 2017-11-03 12:57 | PT ECF NOTE ---
Type of Note: Discharge Summary Primary Medical Diagnosis: fall with L) hip fracture with ORIF Physical Therapy Discharge Date: 11/03/2017 SUBJECTIVE: Prior Hospitalization: 10/18/2017-10/21/2017 [facility] acute Prior Level of Function: independent Prior Living Status: Single level house, Spouse, Living with family, Assist by family Community Services: Independent Home Accessibility: All needs on one level, no stairs to enter Equipment Owned: FWW Medical Complications/Past Medical History: HTN, reflux, UTIs arthritis, CAD Psychosocial Support: spouse and daughter Pain Scale (0-10): 4 OBJECTIVE: Strength: R) LE Hip Flexion: 4/5 Knee Extension: 4/5 Knee Flexion: 4/5 DF: 4/5 L) LE Hip Flexion: <3/5, no AROM against gravity Knee Extension: 3/5 Knee Flexion: 3+/5 DF: 4/5 ROM: Pt lacks AROM hip flexion of the L) side d/t pain and dysfunction Sensation: intact light touch sensation Other Neuro findings: n/a Bed Mobility: Katie with use of leg batting machine operator insulation Transfers: Katie with RW Gait: Katie with RW x300' Stairs: SBA with RW Timed Up and Go (>12 seconds indicated increased risk for falls): 42 seconds ASSESSMENT: The patient has met all PT goals and is safe to d/c home from a mobility standpoint when medically appropriate. It is recommended that the patient continue with skilled PT services via [facility] services and utilize the RW at all times. The patient demonstrates increased independence with functional mobility and decreased need of assistance from others, she reports confidence with d/c home. Problem List/Current Limitations: Pain, Decreased WB, Decreased activity marisa , Decreased strength, Decreased ROM, Decreased balance, Generalized weakness Short Term Goals: (all met) 1. Pt to ambulate 100' with Modified indep and least restrictive device with 80% weight bearing 2. Pt to be modified indep with all bed mobility and supine to/from sit transfers 3. Pt to be modified indep with sit to/from stand transfers from a variety of surfaces. 4. Pt to complete platform step to simulate curb in environment with SBA/ CGA and least restrictive device for off loading to ensure only 80% wt bearing. Administrative Supervisor Goals: Pt to discharge home with adequate care to support 80% weight bearing during ADL's. (met) Patient Goals: To return home with family (met) PLAN: The patient will discharge home with [facility] services and assistance from her spouse. It is recommended that she utilize a RW at all times upon d/c. She is agreeable with this plan for d/c. Thank you for this referral. If you have any questions, concerns, or comments about this report or plan, please contact me at . Mei Read, PT, DPT [facility]
--- NOTE | 2017-11-03 14:39 | OT ECF NOTE ---
Type of Note: Discharge Note Primary Medical Diagnosis: Fall with L hip fracture with pinning Occupational Therapy Evaluation Date: 10/21/2017 SUBJECTIVE: Prior Hospitalization: 10/19/2017-10/21/2017 [facility] acute Prior Level of Function: independent Prior Living Status: Single level house Spouse Living with family Assist by family Community Services: Independent Home Accessibility: Stairs with rails Equipment Owned: Rolling walker, Sock aid, Shower bench Medical Complications/Past Medical History: HTN, reflux, UTIs arthritis, CAD Psychosocial Support: spouse and daughter Pain Scale (0-10): 2/10 at time of discharge Hand Dominance: right OBJECTIVE: Strength: MMT: Right Left Shoulder Flexion WNL WNL Elbow Flexion WNL WNL Wrist Extension WNL WNL Spray Operator WNL WNL (5= normal, 4= good, 3= fair, 2= poor, 1= trace) ROM: Both upper extremities, WFL Sensation: intact Functional Transfer: Assistive Device: RW Transfer Ability: Modified Independent ADL: Upper body dressing: Assistive device: None Upper body dressing ability: Independent Lower body dressing: Assistive device: Sock aid/manager consumer Lower body dressing ability: Modified Independent Toileting: Assistive device: Raised toilet seat Toileting ability: Modified Independent Grooming/hygiene: Assistive device: Standing Grooming ability: Independent Bathing: Assistive device: Shower chair Bathing ability: Modified Independent Standardized Assessment: Alina Index of Activities of Daily Livin/20 discharge (11/03/17) ASSESSMENT: Skilled OT goals met. Problem List/Current Limitations: Decreased strength Decreased balance Short Term Goals: 1. Patient will be SBA-mod I with LB dressing. GOAL MET 2. Patient will be SBA with grooming and hygiene at sinkfront GOAL MET 3. Patient will be SBA with toileting GOAL MET 4. Patient will increase score on Alina Index by 2 points GOAL MET Search And Rescue Officer Goals: return back home with spouse Patient Goals: return back to her normal ADLs Rehabilitation Prognosis: Good Barriers to Discharge: none Thank you for this referral. If you have any questions, concerns, or comments about this report or plan, please contact me at . Makayla Burdick MS, OTR/L Occupational Therapist [facility]
[2017-11-03 16:25] VITALS: BP 152/89
[2017-11-04] MEDS: ACETAMINOPHEN 325 MG TAB PO PRN (04:03)
[2017-11-04 07:15] VITALS: BP 140/69
[2017-11-04] MEDS: POLYETHYLENE GLYCOL 17 GM PKT PO SCH (09:00)
[2017-11-04] MEDS: CALCIUM OYSTER SHELL 500MG TAB PO SCH (09:25)
[2017-11-04] MEDS: ZINC SULFATE 220 MG CAP PO SCH (09:25)
[2017-11-04] MEDS: ANASTROZOLE 1 MG TAB PO SCH (09:26)
[2017-11-04] MEDS: HYDROCHLOROTHIAZIDE 25 MG TAB PO SCH (09:26)
[2017-11-04] MEDS: RANITIDINE HCL 150 MG TAB PO SCH (09:26)
[2017-11-04] MEDS: ENOXAPARIN 40 MG/0.4ML SYR SC SCH (09:26)
[2017-11-04] MEDS: LISINOPRIL 20 MG TAB PO SCH (09:26)
[2017-11-04] MEDS: oxyCODONE HCL 5 MG CAP PO PRN (09:26)
== END 2017-11-04 10:12 | disposition home health service (06) | DRG 561 ==
LOC: ECF 10:50
PROVIDERS: ADMIT Family Medicine; ATTEND Family Medicine
DX: S72.042D Displaced fracture of base of neck of left femur, subsequent encounter for closed fracture with routine healing (principal); I10 Essential (primary) hypertension; K21.9 Gastro-esophageal reflux disease without esophagitis; E04.2 Nontoxic multinodular goiter; R09.02 Hypoxemia; K59.00 Constipation, unspecified; T40.2X5A Adverse effect of other opioids, initial encounter; Y92.230 Patient room in hospital as the place of occurrence of the external cause; Y93.H9 Activity, other involving exterior property and land maintenance, building and construction; Y92.008 Other place in unspecified non-institutional (private) residence as the place of occurrence of the external cause; Y99.8 Other external cause status; W01.0XXD Fall on same level from slipping, tripping and stumbling without subsequent striking against object, subsequent encounter; Z90.710 Acquired absence of both cervix and uterus; Z85.3 Personal history of malignant neoplasm of breast; Z92.3 Personal history of irradiation; Z88.8 Allergy status to other drugs, medicaments and biological substances; Z87.891 Personal history of nicotine dependence
CPT/HCPCS: 36416; 74230; 82948; 97161; 97165; J1650; J9999

== ENCOUNTER → 2017-11-24 | Outpatient (CLI) | payer MEDICARE ==
[~2017-11-24] MED LIST changes: +LISI-355 PO; +OXYC5TAB38 PO
== END ==
LOC: LAB 14:20
PROVIDERS: ATTEND Family Medicine
DX: E55.9 Vitamin D deficiency, unspecified (principal); R73.01 Impaired fasting glucose
CPT/HCPCS: 36415; 82306; 83036

== ENCOUNTER 2017-11-30 10:00 | Outpatient (RCR) | payer MEDICARE ==
[2017-11-28 10:12] VITALS: BP 167/83
[2017-11-28 10:52] LABS: PLATELET COUNT, AUTOMATED 239 K/uL (150-450)
[2017-11-30 10:11] VITALS: BP 151/82
--- NOTE | 2017-11-30 20:30 | ONCOLOGY FOLLOW UP NOTE ---
EVENT DATE: November 30, 2017 REASON FOR FOLLOWUP Stage I, ER-positive left breast cancer. INTERIM HISTORY Ms. Silver returns to clinic for a followup visit today. Unfortunately, since our last visit and recently, she fell in her driveway and suffered a left hip fracture. She is now status post surgical repair, and she has been working with physical therapy and occupational therapy at home. She reports some ongoing left hip pain, but this has been slowly improving over time. She remains on adjuvant anastrozole, and she has been taking calcium and vitamin D supplementation. She reports some ongoing fatigue, but hot flashes have been pretty minimal. She has not required significant pain medication, and she feels that her use of the medicine is decreasing with time. She is currently using ibuprofen and Tylenol. She has had no significant nausea. Her bowel movements have not been problematic. She denies any urinary symptoms. For the most part, her mood has been pretty good considering the circumstances. She did have a recent DEXA scan performed. ONCOLOGY HISTORY ER-positive stage I left breast cancer. a. Patient presents with mammogram revealing a concerning lesion in the upper- outer quadrant of the left breast. b. Patient undergoes lumpectomy and sentinel lymph node biopsy in April 2017. c. Pathology: 8.8 mm ER/SC positive ductal carcinoma, HER2 negative, low Ki- 67. Oncotype DX score 16. [place] lymph node negative, margins negative. d. Initiation of adjuvant anastrazole in mid July 2017. PAST MEDICAL HISTORY 1. Breast cancer as above. 2. Hyperlipidemia. 3. Hypertension. 4. Carotid artery stenosis, status post repair. 5. History of lung nodule, benign, removed in 2002. 6. Gastroesophageal reflux disease. 7. History of hyperactive bladder. 8. Osteopenia. 9. Status post hysterectomy. 10. History of estrogen replacement therapy with Premarin for several years, remote. CURRENT MEDICATIONS 1. Multivitamin with iron daily. 2. Zinc. 3. Valtrex. 4. Fluticasone. 5. Omeprazole. 6. Lisinopril/hydrochlorothiazide. 7. Ibuprofen p.r.n. 8. Oxybutynin. 9. Co-enzyme Q10. 10. Aspirin 81 mg daily. 11. Anastrazole 1 mg p.o. daily. ALLERGIES AMLODIPINE and adverse reaction including ALENDRONATE. SOCIAL HISTORY Patient has adult children as well as three grand kids. She has a 40 pack-year history of smoking, having quit in 1998. She drinks occasional alcohol. There is no history of illicit drug use. FAMILY HISTORY There is no reported history of breast cancer in the family. VITAL SIGNS Temperature is 96.9, blood pressure 151/82, heart rate is 67, respirations 16, oxygen saturation is 94% on room air. Weight is 90.5 kg. PHYSICAL EXAMINATION GENERAL: Patient is alert and oriented times three, no apparent distress sitting in the exam room chair. She is interactive and pleasant. HEENT: Anicteric sclerae. NEUROLOGIC: Grossly nonfocal, though her gait is antalgic. Rest of physical exam deferred for discussion. ASSESSMENT AND PLAN Stage I, ER-positive left breast cancer. Ms. Silver has continued on adjuvant anastrozole, which she has tolerated quite well. Unfortunately, she fell recently and suffered a left hip fracture, which we discussed in detail today. Her recent DEXA scan shows osteopenia with slight worsening over time. I frankly discussed with her my concerns for her worsening osteopenia and her ongoing aromatase inhibitor therapy which is certainly not helping things in that regard. She understands this. We discussed her past experience with bisphosphonate therapy which had apparently caused rather significant and chronic mouth/dental pain. She does not currently report these symptoms, but she is not at all enthusiastic about considering bisphosphonate therapy to improve her bone mineral density. We discussed Prolia as an option as well. She does have regular dental visits, and we would need dental clearance for this. She would like to give this some thought, but she is not particularly interested at this point. We moved on to discuss other options for her adjuvant therapy. Although I would prefer her to remain on aromatase inhibitor therapy, all things considered tamoxifen would be an option. She does not have a personal or family history of thrombosis. The patient is most in favor of continuing with aromatase inhibitor therapy, so I have recommended very strongly that she continue with calcium and vitamin D supplementation, that she work very hard to get herself on a regular exercise regimen, and to continue with progress made with her current physical therapy. The patient agrees to do so. I will plan to see her back for followup in two to three months or sooner if there are questions or concerns. PAUL
== END 2017-12-01 14:36 | disposition home or self-care (01) ==
LOC: ONC 10:00
PROVIDERS: ATTEND Internal Medicine Medical Oncology
DX: C50.912 Malignant neoplasm of unspecified site of left female breast (principal); Z17.0 Estrogen receptor positive status [ER+]; Z87.891 Personal history of nicotine dependence; Z92.3 Personal history of irradiation; Z79.811 Long term (current) use of aromatase inhibitors; R53.83 Other fatigue; M85.89 Other specified disorders of bone density and structure, multiple sites; Z78.0 Asymptomatic menopausal state
CPT/HCPCS: 36415; 85025; G0463; 82040; 82247; 82310; 82374; 82435; 82565; 82947; 84075; 84132; 84155; 84295; 84450; 84460; 84520; 99212

== ENCOUNTER 2017-12-19 14:14 | Outpatient (RCR) | payer MEDICARE ==
[~2017-12-19] VITALS: Ht 177.8 cm; Wt 86.2 kg
--- NOTE | 2017-12-20 17:04 | Medical Nutrition Therapy ---
Nutrition Anthropometrics Height (Inches): 70 Weight (Pounds): 190 (stated) Mitesh Nutrition Score: Mitseh Nutrition Risk Score: Dietary Referral Nutrition Risk Factors: Diff. Swallowing Nutrition Risk Comment: Sheduled for swallow study, fels like there is a mass in back of throat Nutrition/Food History Breakfast: expesso with 1 tsp honey Lunch: levovers or snadwich Dinner: meat, starch, veg Snacks: carrots, nuts Nutritional Education Learning Readiness: Interested Teaching Methods: Discussion, Handout, Demonstration Response to Teaching: Verbalize understanding, Reinforcement needed Teaching Recipient: Patient Nutrition Counseling: Late entry for 12/19: Pt with new dx diabetes. Reviewed pt assessment for diabetes distress. Pt states diabetes is not eating certain foods because of insulin level. Pt states what concerns her most is not knowing what to eat and meal planning. Discussed what is diabetes. Reviewed glycemic response of CHO. Pt set goal of wt loss. Provided meal plan of 30gm or 2 serving or 1c CHO/meal. Provided magazines with recipes to help with meal planning. pt set behavioural goal and support plan. Pt scheduled for diabetes classes. Nutrition Monitoring & Eval RD Patient Assessment Time: [address] Assessment Type: RD Education Nutritional Comment: Provided 70 minutes diabetes eduation focusing on nutrition, diabetic distress, behavioural goal and support plan. Copies To Copies to: RODRÍGUEZ BURROWS MD, BETH Dec 20, 2017 17:04
--- NOTE | 2017-12-28 17:26 | Medical Nutrition Therapy ---
Nutrition Anthropometrics Height (Inches): 70 Weight (Pounds): 190 (stated) Mitesh Nutrition Score: Mitesh Nutrition Risk Score: Dietary Referral Nutrition Risk Factors: Diff. Swallowing Nutrition Risk Comment: Sheduled for swallow study, fels like there is a mass in back of throat Physical Findings Physical Appearance: Overweight BMI 25-29 Skin Appearance Skin Appearance: Edema Edema Location Modifier: Edema Location: Type of Edema: Degree of Edema: Gastrointestinal Symptoms GI Symtoms: Tube Present: Bowel Sounds: Recent Bowel Pattern: Stool Characteristics: Nutritional Education Nutrition Education Topic: Other Learning Readiness: Interested Teaching Methods: Discussion, Handout, Audiovisual Response to Teaching: Verbalize understanding Teaching Recipient: Patient Nutrition Monitoring & Eval RD Patient Assessment Time: [address] Assessment Type: RD Education Nutritional Comment: Provided 70 minutes diabetes eduation focusing on nutrition, diabetic distress, behavioural goal and support plan. 12/28 Pt recently diagnosed with T2DM with A1c of 7.5%. Pt instructed on Living with Diabetes topics including foot care, jail complications, exercise, hypoglycemia, sick day care, etc. Pt appears interested in diabetes topics and able to answer questions regarding topics covered. I personally spent a total of 60 minutes educating/counseling patient regarding diabetes self-management in a group setting. See education section and my note above for details. -DRT Copies To Copies to: RODRÍGUEZ BURROWS MD ; ROGER PEREZ Dec 28, 2017 17:26
== END 2018-01-23 ==
LOC: DIET 14:14
PROVIDERS: ATTEND Family Medicine
DX: Z71.3 Dietary counseling and surveillance (principal); R73.09 Other abnormal glucose
CPT/HCPCS: G0108; G0109

== ENCOUNTER 2018-01-24 10:55 | Outpatient (RCR) | payer MEDICARE ==
[~2018-01-24 10:55] MED LIST changes: -HYDR-4309 PO; +HYDR-653 PO
[2018-01-24] MEDS ORDERED: INFLUENZA VIRUS VAC 0.5ML SYR IM ONLY ONE (11:45)
[2018-01-31] MEDS ORDERED: CARV12.578 PO (13:04)
[2018-02-14] MEDS ORDERED: LISI-355 PO (16:56)
[2018-02-20] MEDS ORDERED: CARV12.578 PO (14:08)
[2018-02-22] MEDS ORDERED: CARV25TA78 PO (13:40)
[2018-02-28] MEDS ORDERED: NYST100016 PO (12:12)
== END 2018-02-27 14:25 | disposition home or self-care (01) ==
LOC: RAON 10:55
PROVIDERS: ATTEND Radiology Radiation Oncology
DX: C50.412 Malignant neoplasm of upper-outer quadrant of left female breast (principal); Z17.0 Estrogen receptor positive status [ER+]; Z79.811 Long term (current) use of aromatase inhibitors; Z92.3 Personal history of irradiation; K21.9 Gastro-esophageal reflux disease without esophagitis; I10 Essential (primary) hypertension; Z87.891 Personal history of nicotine dependence
CPT/HCPCS: 99212

== ENCOUNTER → 2018-02-27 | Outpatient (CLI) | payer MEDICARE ==
[~2018-02-27] MED LIST changes: +CARV25TA78 PO; +NYST100016 PO
== END ==
LOC: SPU 06:59
PROVIDERS: ATTEND Family Medicine
DX: R73.09 Other abnormal glucose (principal); R79.89 Other specified abnormal findings of blood chemistry
CPT/HCPCS: 82306; 83036

== ENCOUNTER 2018-03-09 09:08 | Emergency (ER) | payer MEDICARE ==
--- NOTE | 2018-03-09 09:35 | ER Report ---
History and Physical Time Seen By MD: 09:30 Hx. of Stated Complaint: FALL IN PARKING LOT, C/O OF LEFT HIP PAIN, SURGERY ON LEFT HIP IN SEPTEMBER HPI/ROS CHIEF COMPLAINT: Fall, left hip soreness HISTORY OF PRESENT ILLNESS: Patient is a 73-year-old female here status post fall outside of the [facility] after her walker slipped from underneath her and she fell sideways onto her left hip which she had a prior fracture in. Patient denies new weakness in the leg, paresthesias. Patient has no other complaints at this time and is otherwise neurovascularly intact, denies loss of consciousness. REVIEW OF SYSTEMS: Constitutional: No fever, no chills. Eyes: No discharge. ENT: No sore throat. Cardiovascular: No chest pain, no palpitations. Respiratory: No cough, no shortness of breath. Gastrointestinal: No abdominal pain, no vomiting. Genitourinary: No hematuria. Musculoskeletal: + left hip soreness Skin: No rashes. Neurological: No focal neuro deficits Allergies: Coded Allergies: amlodipine (Verified Allergy, Unknown, 03/09/18) EHR CONVERSION alendronate sodium (Unverified Adverse Reaction, Intermediate, Severe dental pain, 03/09/18) DENTAL PAIN Home Meds Active Scripts Nystatin (Nystatin) 100,000 Unit/Ml Oral.susp, 4-6 ML PO QID for 14 Days, #1 BOTTLE swish and spit or swish and swallow, continue for one day after resolution of all symptoms Prov:RODRÍGUEZ BURROWS MD 02/28/18 Carvedilol (CARVEDILOL) 25 Mg Tablet, 25 MG PO BID for 90 Days, #180 TAB 3 Refills Prov:RODRÍGUEZ BURROWS MD 02/22/18 Lisinopril/Hydrochlorothiazide (LISINOPRIL-HCTZ 20-25 MG TAB) 1 Each Tablet, 1 TAB PO DAILY for 90 Days, #90 TAB Prov:RODRÍGUEZ BURROWS MD 02/14/18 Ranitidine Hcl (RANITIDINE HCL) 150 Mg Capsule, 1 CAP PO QHS, #60 CAPSULE Prov:GIOVANNA JACOBS MD 10/18/17 Oxybutynin Chloride (OXYBUTYNIN CHLORIDE ER) 10 Mg Tab.er.24, 1 TAB PO QDAY, #90 TAB.SR 1 Refill Prov:RODRÍGUEZ BURROWS MD 08/29/17 Valacyclovir Hcl (VALACYCLOVIR) 500 Mg Tablet, 500 MG PO BID for 3 Days, #6 TAB 4 Refills Prov:HOMAJOSERODRÍGUEZ Maher MD 06/29/17 Reported Medications Ubidecarenone (LIQSORB) 100 Mg/1 Ml Liquid, 100 MG PO QDAY 10/19/17 Anastrozole (ANASTROZOLE) 1 Mg Tablet, 1 MG PO DAILY 08/31/17 Cholecalciferol (Vitamin D3) (VITAMIN D-3) 2,000 Unit Capsule, 2000 UNIT PO DAILY, CAPSULE 08/31/17 Calcium Carbonate (CALCIUM) 500 Mg Tablet, 1000 MG PO DAILY 08/31/17 Multivits-Min/Iron/FA/Lutein (Centrum Silver Women Tablet) 1 Each Tablet, 1 TAB PO DAILY 06/29/17 Ibuprofen (IBUPROFEN) 200 Mg Tablet, 2 TAB PO PRN, TAB 04/20/17 Aspirin (Aspirin Ec) 81 Mg Tablet.dr, 81 MG PO DAILY 05/13/10 Hx Smoking: Yes Smoking Status: Former Smoker Hx Substance Use Disorder: No Hx Alcohol Use: Yes Constitutional Vital Sign - Last 24 Hours 03/09/18 03/09/18 03/09/18 03/09/18 09:10 09:15 09:30 10:00 Temp 97.8 Pulse 54 58 50 Resp 18 B/P (MAP) 159/81 140/77 (98) 163/70 (101) Pulse Ox 95 94 95 O2 Delivery Room Air Physical Exam General Appearance: The patient is alert, has no immediate need for airway protection and no signs of toxicity. NAD Eyes: Pupils equal and round no pallor or injection. ENT, Mouth: Mucous membranes are moist. Respiratory: There are no retractions, lungs are clear to auscultation. Cardiovascular: Regular rate and rhythm. [ ] Gastrointestinal: Abdomen is soft and non tender, no masses, bowel sounds normal. Neurological: No focal neuro deficits, + mild weakness of left LE with hip flexion (baseline per patient), sensory exam intact Skin: Warm and dry, no rashes. Musculoskeletal: Neck is supple non tender. Extremities are nontender, nonswollen and have full range of motion. DIFFERENTIAL DIAGNOSIS: After history and physical exam differential diagnosis was considered for fracture, contusion, sprain, abrasion, dislocation Medical Decision Making EKG/Imaging Imaging Location: [facility] [place] Patient: Jimena Silver DOB: 1945 Visit/Account:[id number] Date of Sevice: 03/09/2018 HIP LEFT Indication: Fall, patient placed in September 2017 Comparison: Previous x-ray examination of the pelvis and left hip October 18, 2017 Findings: Mild degenerative changes are seen in the hips bilaterally. Postoperative and posttraumatic changes are seen to the left hip from the basicervical neck fracture. 3 rods traverse the neck. No evidence of hardware complication or evidence of acute osseous finding. IMPRESSION: 1. Compared to the x-ray examination from September 30 and the intraoperative fluoroscopic images from October 19, there is increased impaction involving the basicervical left femoral neck fracture. The fixation screws are intact. Finding is concerning for an acute on chronic process ED Course/Re-evaluation ED Course Patient is a 73-year-old female here with complaints of left hip soreness after a fall outside of the atrium. X-ray imaging of the hip showed mild increase in the impaction fracture with screw still intact. Patient is neurovascularly intact at time of evaluation. I discussed the patient with Dr. Stanford who performed her surgery back in September Dr. Stanford will follow up with the patient in his office. Patient was able to ambulate with her walker without significant pain. Patient was stable at time of discharge. Decision to Disposition Date: Mar 09, 2018 Decision to Disposition Time: 10:28 Depart Departure Latest Vital Signs Vital Signs Date Time Temp Pulse Resp B/P (MAP) Pulse Ox O2 Delivery O2 Flow Rate FiO2 03/09/18 10:00 163/70 (101) 03/09/18 09:30 50 95 03/09/18 09:10 97.8 18 Room Air Impression: Primary Impression: Hip pain, left Additional Impression: Fall Condition: Improved Disposition: HOME OR SELF-CARE Referrals: RODRÍGUEZ BURROWS MD (PCP) Patient Instructions: Fall Prevention for Older Adults (GEN) Additional Instructions: Please follow-up with Dr. Stanford next week. Please return promptly if you have subsequent falls, develop weakness of the left leg, numbness, increased pain. Problem Qualifiers PABLO KLEIN DO Mar 09, 2018 09:35
[2018-03-09 10:00] VITALS: BP 163/70
--- NOTE | 2018-03-09 10:03 | RADIOLOGY IMAGING REPORT ---
FACILITY: [facility] PATIENT NAME: Jimena Silver : 1945 MR: [id number] V: [id number] EXAM DATE: ORDERING PHYSICIAN: PABLO KLEIN TECHNOLOGIST: Location: [facility] Patient: Jimena Silver : 1945 Visit/Account:[id number] Date of Sevice: 03/09/2018 HIP LEFT Indication: Fall, patient placed in September 2017 Comparison: Previous x-ray examination of the pelvis and left hip October 18, 2017 Findings: Mild degenerative changes are seen in the hips bilaterally. Postoperative and posttraumatic changes are seen to the left hip from the basicervical neck fracture. 3 rods traverse the neck. No evidence of hardware complication or evidence of acute osseous finding. IMPRESSION: 1. Compared to the x-ray examination from September 30 and the intraoperative fluoroscopic images from Sep, there is increased impaction involving the basicervical left femoral neck fracture. The fixati on screws are intact. Finding is concerning for an acute on chronic process Report Dictated By: Ritesh Castaneda MD at 03/09/2018 9:51 AM Report E-Signed By: Ritesh Castaneda MD at 03/09/2018 9:59 AM WSN:[email or web address]
== END 2018-03-09 10:35 | disposition home or self-care (01) ==
LOC: ER 09:25
DX: M25.552 Pain in left hip (principal); S72.002A Fracture of unspecified part of neck of left femur, initial encounter for closed fracture; W01.0XXA Fall on same level from slipping, tripping and stumbling without subsequent striking against object, initial encounter; Y92.481 Parking lot as the place of occurrence of the external cause
CPT/HCPCS: 99283

== ENCOUNTER → 2018-03-09 | Outpatient (CLI) | payer MEDICARE ==
--- NOTE | 2018-03-09 17:42 | RADIOLOGY IMAGING REPORT ---
FACILITY: [facility] PATIENT NAME: Jimena Silver : 1945 MR: [id number] V: [id number] EXAM DATE: ORDERING PHYSICIAN: GIOVANNA JACOBS TECHNOLOGIST: Location: [facility] Patient: Jimena Silver : 1945 Visit/Account:[id number] Date of Sevice: 03/09/2018 THYROID HISTORY: Multiple thyroid nodules. Three nodules were biopsied in August 2017. ADDITIONAL HISTORY: None. COMPARISON: Comparison study August 30, 2017 and July 27, 2017 FINDINGS: Thyroid size: Right lobe is mildly enlarged Right lobe: 4.8 craniocaudad by 2.1 x 2.0 cm Left lobe: 4.3 craniocaudad by 1.3 x 1.3 cm Thyroid nodules there are multiple thyroid nodules again identified. I do not believe there has been a significant change but given the multiplicity it is difficult to be sure I am comparing the same n odules. Right lobe: In the right lobe there are five nodules which have been measured. Beginning superiorly to inferiorly: Nodule 1:1.13 x 1.1 x 0.7 cm. Spongiform. Nodule 2:1.9 x 1.5 x 0.7 cm near the isthmus. Spongiform. This was biopsied in August. Nodule 3:1.2 x 0.9 x 0.9 cm. Spongiform Nodule 4:1.5 x 1.1 x 1.1 cm. It is isoechoic and was biopsied in August. Nodule 5:1.0 x 1.1 x 0.9 cm Spongiform Left lobe: Five nodules were measured Nodule one: Superior pole 0.8 x 0.8 x 0.4 cm spongiform Nodule two: Several macrocalcifications. Nodule three: Cyst measuring 0.8 x 0.8 x 0.4 cm Nodule four: Hypoechoic measuring 0.8 x 0.6 x 0.4 cm Nodule five: At the inferior pole measuring 1.3 x 1.3 x 0.7 cm this spongiform. This lesion was biop sied in August 2017. Isthmus: None discrete. Thyroid vascularity: Some of the above-mentioned lesions demonstrate rim hyperemia. Thyroid echotexture: Homogenous and normal. IMPRESSION: Multinodular goiter. Correlate with biopsy results from the three lesions sampled in August 2017 Report Dictated By: Anibal Wilson MD at 03/09/2018 5:27 PM Report E-Signed By: Anibal Wilson MD at 03/09/2018 5:38 PM WSN:[email or web address]
== END ==
LOC: US 01:01
PROVIDERS: ATTEND Surgery
DX: E04.2 Nontoxic multinodular goiter (principal)
CPT/HCPCS: 76536

== ENCOUNTER → 2018-05-04 | Outpatient (CLI) | payer MEDICARE ==
--- NOTE | 2018-05-05 15:43 | RADIOLOGY IMAGING REPORT ---
FACILITY: [facility] PATIENT NAME: AMERICO WILLINGHAM : [id number] MR: [id number] V: [id number] EXAM DATE: ORDERING PHYSICIAN: DEVON RILEY TECHNOLOGIST: Yasmeen Richter PROCEDURE:BILATERAL DIAGNOSTIC DIGITAL MAMMOGRAM WITH CAD ASSISTED INTERPRETATION & 3D TOMOSYNTHESIS COMPARISON:Prior mammograms 04/08/17, 03/18/17, 04/12/14, 04/09/14. INDICATIONS:HX LEFT BREAST CA FINDINGS: The breasts are heterogeneously dense which can obscure small masses. There is skin thickening seen throughout the Left breast which is consistent the history of radiation therapy. There is an area of mild architecturally distortion in the upper outer quadrant of the Left breast from prior lumpectomy. The parenchymal pattern has otherwise remained stable. DIAGNOSTIC CATEGORY 2--BENIGN FINDING. RECOMMENDATIONS: ROUTINE MAMMOGRAM AND CLINICAL EVALUATION. IMPRESSION: BIRADS 2: Benign finding. No significant abnormality is seen. Dictated by: Michell Killian M.D. on 05/04/2018 at 17:00 Transcribed by: DARYL on 05/05/2018 at 8:21 Approved by: Michell Killian M.D. on 05/05/2018 at 15:42 [facility]
== END ==
LOC: MAMO 09:10
PROVIDERS: ATTEND Radiology Radiation Oncology
DX: C50.912 Malignant neoplasm of unspecified site of left female breast (principal); Z17.0 Estrogen receptor positive status [ER+]; Z85.3 Personal history of malignant neoplasm of breast
CPT/HCPCS: 77062; 77063; 77066; 77067

== ENCOUNTER 2018-05-10 15:55 | Outpatient (RCR) | payer MEDICARE ==
[2018-02-27 12:53] VITALS: BP 118/55
[2018-02-27 13:18] LABS: PLATELET COUNT, AUTOMATED 210 K/uL (150-450)
[2018-03-01 10:46] VITALS: BP 139/68
--- NOTE | 2018-03-01 23:00 | ONCOLOGY FOLLOW UP NOTE ---
EVENT DATE: March 01, 2018 CHIEF COMPLAINT Follow up for breast cancer. HISTORY OF PRESENT ILLNESS Patient is a 73-year-old female who is seen today in three-month followup for stage I, ER-positive left breast cancer. She continues on anastrozole, which she is tolerating well. Unfortunately, she fell and fractured her hip in September 2017 and underwent ORIF. She is still using a walker and trying to graduate to using canes, but is somewhat frustrated by how long this process has taken. She denies any significant arthralgias or myalgias from the anastrozole. She had a viral URI last week and then developed thrush. She was prescribed nystatin, and thrush is resolving. She will be due for a mammogram again in April 2018. ONCOLOGY HISTORY ER-positive stage I left breast cancer. a. Presented with mammogram revealing a concerning lesion in the upper-outer quadrant of the left breast. b. Underwent lumpectomy and sentinel lymph node biopsy in April 2017. c. Pathology: 8.8 mm ER/OK positive ductal carcinoma, HER2 negative, low Ki- 67. Oncotype DX score 16. [place] lymph node negative, margins negative. d. Completed adjuvant radiation 07/20/17. e. Initiation of adjuvant anastrazole in mid July 2017. PAST MEDICAL/SURGICAL HISTORY 1. Breast cancer April 2017. 2. Hyperlipidemia. 3. Hypertension. 4. Carotid artery stenosis, status post repair. 5. History of lung nodule, benign, removed in 2002. 6. Gastroesophageal reflux disease. 7. History of hyperactive bladder. 8. Osteopenia. 9. Status post hysterectomy. 10. History of estrogen replacement therapy with Premarin for several years, remote. 11. Fractured left hip September 2017, status post ORIF. FAMILY HISTORY Negative for malignancy. SOCIAL HISTORY Patient is . They have two grown children. She has a 25-xhor-eytf history of smoking, but quit in 1998. She drinks occasional alcohol. No history of illicit drug use. CURRENT MEDICATIONS 1. Multivitamin with iron daily. 2. Zinc. 3. Valtrex. 4. Fluticasone. 5. Omeprazole. 6. Lisinopril/hydrochlorothiazide. 7. Ibuprofen p.r.n. 8. Oxybutynin. 9. Co-enzyme Q10. 10. Aspirin 81 mg daily. 11. Anastrazole 1 mg p.o. daily. ALLERGIES AMLODIPINE and adverse reaction TO ALL BISPHOSPHONATES. REVIEW OF SYSTEMS A 12-point review of systems is performed and is negative except as stated above. PHYSICAL EXAMINATION VITAL SIGNS: Weight 87.2 kg. BP 139/68, P 52, R 16, temp 97.1, O2 sat 94%. GENERAL: Patient is a well-developed, well-nourished female in no acute distress. HEAD: Normocephalic, atraumatic. EYES: Sclerae anicteric. MOUTH: Mucous membranes slightly dry with evidence of thrush, but resolving. NECK: Supple. No adenopathy. BREASTS: Status post left lumpectomy with no evidence of recurrence. Right breast is without masses. LUNGS: Clear bilaterally. CARDIOVASCULAR: Heart rate regular, 52 per minute, without murmur, S3, or S4. ABDOMEN: Soft, nontender, with hypoactive bowel sounds. No organomegaly. EXTREMITIES: No edema. NEUROLOGIC: Nonfocal. IMPRESSION AND PLAN The patient is a 73-year-old female with stage I, ER-positive left breast cancer. 1. Breast cancer. No signs or symptoms of disease recurrence. We spent some time discussing a possible change from anastrozole to tamoxifen due to her issues with worsening osteopenia as well as the recent fracture. She has just filled a three-month supply of anastrozole and will continue this. She will be seen again in three months and likely transitioned to tamoxifen at that time. We discussed possible side effects from tamoxifen including hot flashes/night sweats and possibility of a deep venous thrombosis/clotting. We will continue to discuss. 2. Worsening osteopenia. As above, she fractured her hip in September 2017. She states she is allergic to ALL BISPHOSPHONATES. When taking these, she developed dental pain, and it took a year to resolve. She does not want to consider Prolia due to the possible complication of osteonecrosis of the jaw. As above, we will likely transition to tamoxifen. 3. Breast surveillance. She will schedule mammogram in April 2018. 4. Follow up in mid May for continued care, earlier if there is a problem. PAUL
[~2018-05-10 15:55] MED LIST changes: -CINN500C12 PO; -TAMO20TA24 PO
[2018-05-10 16:00] VITALS: BP 129/75
[2018-05-10] MEDS ORDERED: CINN500C12 PO (16:06)
[2018-05-11] MEDS ORDERED: TAMO20TA24 PO (09:11)
--- NOTE | 2018-05-12 00:17 | ONCOLOGY FOLLOW UP NOTE ---
EVENT DATE: May 10, 2018 CHIEF COMPLAINT Followup for breast cancer. HISTORY OF PRESENT ILLNESS Patient is a 73-year-old female who was seen today in followup for stage I ER- positive left breast cancer. She has been treated with anastrazole since July 2017; however, she fractured her hip in September 2017 and underwent ORIF. She is still recovering from this, although recently graduated from a walker to a cane. At last visit, we discussed changing her endocrine therapy to tamoxifen due to worsening osteopenia and recent fracture. She has now completed her anastrazole and presents to discuss this. Otherwise, she feels she is doing well. She has had recurrent thrush associated with viral illnesses. She felt that this had recurred. She saw Dr. Tracy, who cultured her tongue and no teo was noted. She otherwise denies any new complaints. ONCOLOGY HISTORY ER-positive stage I left breast cancer. a. Presented with mammogram revealing a concerning lesion in the upper-outer quadrant of the left breast. b. Underwent lumpectomy and sentinel lymph node biopsy in April 2017. c. Pathology: 8.8 mm ER/KS positive ductal carcinoma, HER2 negative, low Ki- 67. Oncotype DX score 16. [place] lymph node negative, margins negative. d. Completed adjuvant radiation 07/20/17. e. Initiation of adjuvant anastrazole in mid July 2017. f. Changed from anastrazole to tamoxifen in May 2018 due to recent fracture and osteopenia. PAST MEDICAL/SURGICAL HISTORY 1. Breast cancer April 2017. 2. Hyperlipidemia. 3. Hypertension. 4. Carotid artery stenosis, status post repair. 5. History of lung nodule, benign, removed in 2002. 6. Gastroesophageal reflux disease. 7. History of hyperactive bladder. 8. Osteopenia. 9. Status post hysterectomy. 10. History of estrogen replacement therapy with Premarin for several years, remote. 11. Fractured left hip September 2017, status post ORIF. FAMILY HISTORY Negative for malignancy. No clotting disorders. SOCIAL HISTORY Patient is . They have two grown children. She has a [id number] history of smoking, but quit in 1998. She drinks occasional alcohol. No history of illicit drug use. CURRENT MEDICATIONS 1. Multivitamin. 2. Valtrex. 3. Zantac. 4. Lisinopril/hydrochlorothiazide. 5. Carvedilol. 6. Calcium. 7. Vitamin D3. 8. Aspirin 81 mg. ALLERGIES ALL BISPHOSPHONATES. REVIEW OF SYSTEMS A 12-point review of systems is performed and is negative except as stated above. PHYSICAL EXAMINATION VITAL SIGNS: Weight 88.4 kg. BP 129/75, P 54, R 16, temp 97.2, O2 sat 95%. GENERAL: Patient is a well-developed, well-nourished female in no acute distress. HEAD: Normocephalic, atraumatic. EYES: Sclerae anicteric. MOUTH: Moist mucous membranes. Tongue has slight white coating, but no obvious thrush noted. BREASTS: Exam deferred today. LUNGS: Clear bilaterally. CARDIOVASCULAR: Heart rate regular, 52 per minute, without murmur, S3, or S4. EXTREMITIES: No edema. NEUROLOGIC: Nonfocal. IMPRESSION The patient is a 73-year-old female with stage I, ER-positive left breast cancer. Underwent lumpectomy in April 2017. Completed adjuvant radiation in June 2017. Began treatment with anastrazole in July 2017. 1. Breast cancer. No signs or symptoms of disease recurrence. Today we spent a total of 30 minutes discussing change from anastrazole to tamoxifen due to issues with worsening osteopenia as well as the recent fracture. We reviewed some of the possible side effects, including hot flashes/night sweats, possible mood changes, and mild nausea. We reviewed the signs of clotting. She states understanding and will begin this on 05/15/18. 2. Osteopenia. Worsening osteopenia with recent hip fracture. She believes she is allergic to all bisphosphonates. 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 For this reason, she is transitioned to tamoxifen. 3. Breast surveillance. Bilateral mammogram on 05/04/18 was BIRADS category 2. This will be repeated in May 2019. 4. Hip fracture. Patient is still struggling with recovery from her hip surgery. She is using a cane now as opposed to the walker. She is considering a second opinion. 5. Follow up with Dr. Hernández in three months for continued care, earlier if there is a problem. [facility]
[2018-05-18] MEDS ORDERED: OXYB10TA16 PO (17:52)
== END 2018-05-28 ==
LOC: ONC 15:55
PROVIDERS: ATTEND Internal Medicine Medical Oncology
DX: C50.912 Malignant neoplasm of unspecified site of left female breast (principal); R73.09 Other abnormal glucose; R79.89 Other specified abnormal findings of blood chemistry; Z92.3 Personal history of irradiation; Z87.891 Personal history of nicotine dependence; M85.80 Other specified disorders of bone density and structure, unspecified site
CPT/HCPCS: 36415; 82306; 83036; 85025; G0463; 82040; 82247; 82310; 82374; 82435; 82565; 82947; 84075; 84132; 84155; 84295; 84450; 84460; 84520; 99212

== ENCOUNTER → 2018-05-10 | Outpatient (CLI) | payer MEDICARE ==
[~2018-05-10] MED LIST changes: +CINN500C12 PO; +TAMO20TA24 PO
== END ==
LOC: LAB 09:28
PROVIDERS: ATTEND Family Medicine
DX: B37.0 Candidal stomatitis (principal)
CPT/HCPCS: 87210

== ENCOUNTER 2018-05-22 13:12 | Outpatient (RCR) | payer MEDICARE ==
[~2018-05-22 13:12] MED LIST changes: +CINN500C12 PO; +TAMO20TA24 PO
[2018-06-06] MEDS ORDERED: CRAN500T (12:40)
== END 2018-06-05 08:40 | disposition home or self-care (01) ==
LOC: RAON 13:12
PROVIDERS: ATTEND Radiology Radiation Oncology
DX: C50.412 Malignant neoplasm of upper-outer quadrant of left female breast (principal); Z17.0 Estrogen receptor positive status [ER+]; Z79.811 Long term (current) use of aromatase inhibitors; Z92.3 Personal history of irradiation; K21.9 Gastro-esophageal reflux disease without esophagitis; I10 Essential (primary) hypertension; Z87.891 Personal history of nicotine dependence

== ENCOUNTER → 2018-10-24 | Outpatient (CLI) | payer MEDICARE ==
[~2018-10-24] MED LIST changes: +CRAN500T
[2018-10-24 14:06] LABS: PLATELET COUNT, AUTOMATED 253 K/uL (150-450)
== END ==
LOC: LAB 13:51
PROVIDERS: ATTEND Family Medicine
DX: E11.9 Type 2 diabetes mellitus without complications (principal); I10 Essential (primary) hypertension
CPT/HCPCS: 36415; 82040; 82247; 82310; 82374; 82435; 82565; 82947; 83036; 84075; 84132; 84155; 84295; 84450; 84460; 84520; 85025

== ENCOUNTER 2018-12-13 10:30 | Outpatient (RCR) | payer MEDICARE ==
[2018-09-21 11:04] VITALS: BP 121/64
--- NOTE | 2018-09-22 09:19 | ONCOLOGY FOLLOW UP NOTE ---
EVENT DATE: September 21, 2018 REASON FOR FOLLOWUP Stage I, ER-positive left breast cancer. INTERIM HISTORY Ms. Silver returns to clinic for a followup visit today. She reports that in general things have been going fairly well. She is still ambulating with a walker but she is working with PT and she feels that she is making slow progress. She reports no fever, chills or sweats. She has noticed no skin changes. She has noticed no lumps or bumps in the neck or under the arms. She denies shortness of breath, chest pain or cough. She has had no abdominal pain or changes in bowel or bladder habits. She was recently changed from anastrozole to tamoxifen due to her known osteopenia/osteoporosis. She has done well with the tamoxifen, noting that she can barely tell she is taking it. We spent time today discussing the potential benefits versus risks of tamoxifen and she does plan to continue taking it. I have recommended ongoing work with physical therapy and generally regular physical activity as well as a healthful diet. She will be due for bilateral mammogram in May 2019. We will have her follow up here in three months or sooner if there are questions or concerns. PAUL
[~2018-12-13 10:30] MED LIST changes: -DICL100G39 TOP
[2018-12-13 10:43] VITALS: BP 158/77
[2018-12-14] MEDS ORDERED: DICL100G39 TOP (08:11)
--- NOTE | 2018-12-14 20:51 | ONCOLOGY FOLLOW UP NOTE ---
EVENT DATE: December 13, 2018 CHIEF COMPLAINT Followup for breast cancer. HISTORY OF PRESENT ILLNESS Patient is a 73-year-old female who was seen today in followup. Overall, she is doing very well. She is tolerating her tamoxifen without issue and is grateful that this is not causing her problems as she had significant arthralgias with the aromatase inhibitors. She is now walking without an assistive device as she underwent a left total hip replacement in July 2018. She notes some bilateral lower extremity swelling, left greater than right, but overall feels she is doing well. ONCOLOGY HISTORY ER-positive stage I left breast cancer. a. Presented with mammogram revealing a concerning lesion in the upper-outer quadrant of the left breast. b. Underwent lumpectomy and sentinel lymph node biopsy in April 2017. c. Pathology: 8.8 mm ER/VT positive ductal carcinoma, HER2 negative, low Ki- 67. Oncotype DX score 16. [place] lymph node negative, margins negative. d. Completed adjuvant radiation 07/20/17. e. Initiation of adjuvant anastrazole in mid July 2017. f. Changed from anastrazole to tamoxifen in May 2018 due to recent fracture and osteopenia. PAST MEDICAL/SURGICAL HISTORY 1. Breast cancer April 2017. 2. Hyperlipidemia. 3. Hypertension. 4. Carotid artery stenosis, status post repair. 5. History of lung nodule, benign, removed in 2002. 6. Gastroesophageal reflux disease. 7. History of hyperactive bladder. 8. Osteopenia. 9. Status post hysterectomy. 10. History of estrogen replacement therapy with Premarin for several years, remote. 11. Fractured left hip September 2017, status post ORIF. 12. Left total hip replacement, July 2018. FAMILY HISTORY Negative for malignancy. No clotting disorders. SOCIAL HISTORY Patient is . They have two grown children. She has a [id number] history of smoking, but quit in 1998. She drinks occasional alcohol. No history of illicit drug use. CURRENT MEDICATIONS 1. Multivitamin. 2. Valtrex. 3. Zantac. 4. Lisinopril/hydrochlorothiazide. 5. Carvedilol. 6. Calcium. 7. Vitamin D3. 8. Aspirin 81 mg. 9. Tamoxifen 20 mg daily. 10. Ditropan XL 10 mg daily. ALLERGIES ALL BISPHOSPHONATES. REVIEW OF SYSTEMS A 12-point review of systems is performed and is negative except as stated above. PHYSICAL EXAMINATION VITAL SIGNS: Weight 199 pounds. BP 158/77, P 60, R 16, temp 97.6, O2 sat 95%. GENERAL: Patient is a well-developed, well-nourished female in no acute distress. HEAD: Normocephalic, atraumatic. EYES: Sclerae anicteric. MOUTH: Moist mucous membranes. No lesions. BREASTS: Status post left lumpectomy with minimal scar tissue present. No evidence of recurrence. Right breast is without masses. LUNGS: Clear bilaterally. CARDIOVASCULAR: Heart rate regular, 60 per minute, without murmur. ABDOMEN: Soft, nontender. No organomegaly. EXTREMITIES: Trace to 1+ pretibial edema bilaterally, left greater than right. NEUROLOGIC: Nonfocal. LABORATORY No lab today. IMPRESSION The patient is a 73-year-old female with stage I, ER-positive left breast cancer. Underwent lumpectomy in April 2017. Completed adjuvant radiation in June 2017. Began treatment with anastrazole in July 2017. Treatment changed to tamoxifen in May 2018 due to concerns of significant arthralgias and worsening osteopenia. PLAN 1. Breast cancer. No signs or symptoms of disease recurrence. She will continue on tamoxifen, which she is tolerating well. 2. Osteopenia. Noted to have worsening osteopenia on bone density exam done in August 2017. As above, she has been transitioned to tamoxifen. Will schedule bone density along with mammogram in May 2019. 3. Breast surveillance. Bilateral mammogram on 05/04/18 was BI-RADS category 2. This will be repeated in May 2019 along with bone density. 4. Left hip. Patient is now pain-free and ambulating without assistive devices after undergoing left total hip replacement in July. 5. Bilateral lower extremity swelling. We discussed low-salt foods and using compression stockings during the day. 6. Follow up in mid May after bone density and mammogram for continued care. She will see Dr. Tracy in January 2019. PAUL
== END 2018-12-19 ==
LOC: ONC 10:30
PROVIDERS: ATTEND Internal Medicine Medical Oncology
DX: C50.912 Malignant neoplasm of unspecified site of left female breast (principal); Z79.810 Long term (current) use of selective estrogen receptor modulators (SERMs); Z17.0 Estrogen receptor positive status [ER+]; M85.80 Other specified disorders of bone density and structure, unspecified site; R60.0 Localized edema; Z87.891 Personal history of nicotine dependence
CPT/HCPCS: 99212

== ENCOUNTER → 2018-12-13 | Outpatient (CLI) | payer MEDICARE ==
[~2018-12-13] MED LIST changes: +DICL100G39 TOP
--- NOTE | 2018-12-13 17:39 | RADIOLOGY IMAGING REPORT ---
FACILITY: [facility] [place] PATIENT NAME: Jimena Silver : 1945 MR: [id number] V: [id number] EXAM DATE: ORDERING PHYSICIAN: RODRÍGUEZ BURROWS TECHNOLOGIST: Location: [facility] [place] Patient: Jimena Silver : 1945 Visit/Account:[id number] Date of Sevice: 12/13/2018 Venous Doppler ultrasound left lower extremity Indication: Left leg edema.. Comparison: None Available Findings: Duplex Doppler and color flow imaging was performed. The common femoral, femoral, and popl iteal veins are all patent and compressible with normal Doppler wave forms. There are normal respons es to augmentation. The posterior tibial and peroneal veins are patent in the calf. The proximal greater saphenous vein is also normal. Subcutaneous tissues are unremarkable. IMPRESSION: 1. No evidence of deep venous thrombosis of the left lower extremity. Report Dictated By: Adis Coleman at 12/13/2018 5:29 PM Report E-Signed By: Adis Coleman at 12/13/2018 5:30 PM WSN:[id number]
== END ==
LOC: RAD 16:40
PROVIDERS: ATTEND Family Medicine
DX: R60.0 Localized edema (principal)